=== PATIENT | female | born 1980 | race African-American/Black ===

== ENCOUNTER 2017-04-10 15:31 | Inpatient (IN) | payer MEDICAID ==
[2017-04-10] MEDS ORDERED: IPRATROPIUM/ALBUTEROL 0.5-2.5 MG/3 ML AMPUL NEB ONE ×3 (16:34→19:42)
[2017-04-10] MEDS ORDERED: PREDNISONE 20 MG TABLET PO ONE ×2 (16:42→23:45)
[2017-04-10] MEDS ORDERED: ALBUTEROL SULFATE 0.083% NEB 2.5 MG/3 ML AMPUL NEB ONE ×3 (16:42→17:42)
--- NOTE | 2017-04-10 17:18 | RADIOLOGY REPORT (SQ) ---
EXAM DESCRIPTION: CHEST PA/LAT COMPLETED DATE/TIME: 04/10/2017 5:07 pm REASON FOR STUDY: cough COMPARISON: 01/15/2016 EXAM PARAMETERS: NUMBER OF VIEWS: two views TECHNIQUE: Digital Frontal and Lateral radiographic views of the chest acquired. RADIATION DOSE: NA LIMITATIONS: none FINDINGS: LUNGS AND PLEURA: No opacities, masses or pneumothorax. No pleural effusion. MEDIASTINUM AND HILAR STRUCTURES: No masses or contour abnormalities. HEART AND VASCULAR STRUCTURES: Heart normal size. No evidence for failure. BONES: No acute findings. HARDWARE: None in the chest. OTHER: No other significant finding. IMPRESSION: NO SIGNIFICANT RADIOGRAPHIC FINDING IN THE CHEST. TECHNICAL DOCUMENTATION: JOB ID: [id number] [employer]- All Rights Reserved
--- NOTE | 2017-04-10 18:45 | ER Document Report ---
ED Medical Screen (RME) - General Chief Complaint: Shortness Of Breath Stated Complaint: DIFFICULTY BREATHING Time Seen by Provider: 04/10/17 16:25 Mode of Arrival: Ambulatory Information source: Patient TRAVEL OUTSIDE OF THE [place] IN LAST 30 DAYS: No - HPI Patient complains to provider of: cough, DB Onset: Other - 2 days Notes: 04/10/17 18:44 Patient is a 36-year-old female who presents to the emergency room complaining of 2 day history of cough with shortness of breath and difficulty breathing, she denies a fever, no history of similar symptoms, she is not a smoker, no history of asthma or COPD - Related Data Allergies/Adverse Reactions: No Known Allergies Allergy (Verified 04/10/17 15:55) Past Medical History - Social History Frequency of alcohol use: None Drug Abuse: None Endocrine Medical History: Reports: Hx Hypothyroidism. Denies: Hx Diabetes Mellitus Type 1, Hx Diabetes Mellitus Type 2 Renal/ Medical History: Denies: Hx Peritoneal Dialysis GI Medical History: Reports: Hx Gastritis Musculoskeltal Medical History: Reports Hx Arthritis, Reports Hx Musculoskeletal Deformity, Reports Hx Musculoskeletal Trauma Psychiatric Medical History: Reports: Hx Anxiety, Hx Bipolar Disorder, Hx Depression, Hx Schizophrenia Past Surgical History: Reports: Hx Hysterectomy - Immunizations Immunizations up to date: No Hx Diphtheria, Pertussis, Tetanus Vaccination: Yes Physical Exam - Vital signs Vitals: Temp Pulse Resp BP Pulse Ox 98.6 F 101 H 20 136/92 H 93 04/10/17 15:56 04/10/17 15:56 04/10/17 15:56 04/10/17 15:56 04/10/17 15:56 Course - Vital Signs Vital signs: Temp Pulse Resp BP Pulse Ox 98.6 F 101 H 20 136/92 H 93 04/10/17 15:56 04/10/17 15:56 04/10/17 15:56 04/10/17 15:56 04/10/17 15:56
[2017-04-10] MEDS ORDERED: TERBUTALINE SULFATE INJ/PF 1 MG/1 ML SDV SUBCUT ONE (19:42)
--- NOTE | 2017-04-10 19:43 | ER Document Report ---
ED Respiratory Problem - General Mode of Arrival: Ambulatory Information source: Patient TRAVEL OUTSIDE OF THE [place] IN LAST 30 DAYS: No - HPI Patient complains to provider of: Chest pain - "tightness", Hurts to breath, Short of breath Onset: Yesterday Associated symptoms: Other - see notes above <JAIME SOTO - Last Filed: 04/10/17 22:13> <ESPERANZA ARREGUIN - Last Filed: 04/10/17 23:42> - General Chief Complaint: Shortness Of Breath Stated Complaint: DIFFICULTY BREATHING Time Seen by Provider: 04/10/17 16:25 Notes: 36-year-old female presents to the ED complaining of shortness of breath that started yesterday and worsened today. Patient reports that her symptoms started with chest pressure and tightness followed by shortness of breath. Patient has used her daughter's inhaler, but to no relief. Patient also complaining of pain with deep breathing, but denies fever. (JAIME SOTO) - Related Data Allergies/Adverse Reactions: No Known Allergies Allergy (Verified 04/10/17 15:55) Past Medical History - General Information source: Patient - Social History Smoking Status: Former Smoker Frequency of alcohol use: None Drug Abuse: None Family History: DM, Hyperlipidemia, Hypertension, Malignancy, Thyroid Disfunction Patient has suicidal ideation: No Patient has homicidal ideation: No Endocrine Medical History: Reports: Hx Hypothyroidism. Denies: Hx Diabetes Mellitus Type 1, Hx Diabetes Mellitus Type 2 Renal/ Medical History: Denies: Hx Peritoneal Dialysis GI Medical History: Reports: Hx Gastritis Musculoskeltal Medical History: Reports Hx Arthritis, Reports Hx Musculoskeletal Deformity, Reports Hx Musculoskeletal Trauma Psychiatric Medical History: Reports: Hx Anxiety, Hx Bipolar Disorder, Hx Depression, Hx Schizophrenia Past Surgical History: Reports: Hx Hysterectomy - Immunizations Immunizations up to date: No Hx Diphtheria, Pertussis, Tetanus Vaccination: Yes <JAIME SOTO - Last Filed: 04/10/17 22:13> Review of Systems - Review of Systems Constitutional: No symptoms reported. denies: Fever EENT: No symptoms reported Cardiovascular: See HPI, Chest pain - 'tightness' Respiratory: See HPI, Hurts to breathe, Short of breath Gastrointestinal: No symptoms reported Genitourinary: No symptoms reported Female Genitourinary: No symptoms reported Musculoskeletal: No symptoms reported Skin: No symptoms reported Hematologic/Lymphatic: No symptoms reported Neurological/Psychological: No symptoms reported -: Yes All other systems reviewed and negative <SOTOJAIME - Last Filed: 04/10/17 22:13> Physical Exam - General General appearance: Alert In distress: Mild - HEENT Head: Normocephalic, Atraumatic Eyes: Normal Extraocular movements intact: Yes Pupils: PERRL - Respiratory Respiratory status: Respiratory distress - mild Breath sounds: Wheezing - diffuse bilaterally - Cardiovascular Rhythm: Regular Heart sounds: Normal auscultation - Abdominal Inspection: Normal Distension: No distension Tenderness: Nontender - Back Back: Normal - Extremities General upper extremity: Normal inspection, Normal ROM General lower extremity: Normal inspection, Normal ROM - Neurological Neuro grossly intact: Yes Cognition: Normal Orientation: AAOx4 [place] Coma Scale Eye Opening: Spontaneous [place] Coma Scale Verbal: Oriented [place] Coma Scale Motor: Obeys Commands Sig[place] Coma Scale Total: 15 Speech: Normal - Psychological Associated symptoms: Normal affect, Normal mood - Skin Skin Temperature: Warm Skin Moisture: Dry Skin Color: Normal <SOTOJAIME - Last Filed: 04/10/17 22:13> Course - Laboratory Result Diagrams: 04/10/17 20:04 04/10/17 20:04 <SOTOJAIME - Last Filed: 04/10/17 22:13> - Laboratory Result Diagrams: 04/10/17 20:04 04/10/17 20:04 <ESPERANZA ARREGUIN - Last Filed: 04/10/17 23:42> - Re-evaluation Re-evalutation: 04/10/17 20:27 Patient is a 36-year-old female with a history of smoking who comes in with respiratory distress. Continues to wheeze after nebulizer treatment Solu- Medrol and magnesium. No history of asthma or COPD. 04/10/17 21:08 Patient improved but still working to breathe. CTA of pain. No PE or pneumonia. Patient is improved on BiPAP but still wheezing. 04/10/17 23:41 Given Toradol for chest wall pain which is reproducible. Admitted to the hospitalist service for respiratory distress and bronchospasm. (ESPERANZA ARREGUIN) - Vital Signs Vital signs: Temp Pulse Resp BP Pulse Ox 98.6 F 101 H 20 136/92 H 93 04/10/17 15:56 04/10/17 15:56 04/10/17 15:56 04/10/17 15:56 04/10/17 15:56 - Laboratory Laboratory results interpreted by me: 04/10/17 04/10/17 04/10/17 20:04 20:04 22:15 WBC 22.2 H RBC 5.65 H MCV 72 L MCH 22.5 L MCHC 31.2 L RDW 16.9 H Seg Neuts % (Manual) 85 H Lymphocytes % (Manual) 9 L Abs Neuts (Manual) 18.9 H ABG pCO2 34.9 L ABG pO2 118.6 H ABG O2 Saturation 98.3 H Total Protein 8.3 H Urine Glucose (UA) Urine Blood 04/10/17 22:20 WBC RBC MCV MCH MCHC RDW Seg Neuts % (Manual) Lymphocytes % (Manual) Abs Neuts (Manual) ABG pCO2 ABG pO2 ABG O2 Saturation Total Protein Urine Glucose (UA) 50 H Urine Blood SMALL H Critical Care Note - Critical Care Note Total time excluding time spent on procedures (mins): 45 - Evaluation and management of respiratory distress, monitoring of airway breathing, multiple re- evaluations, coordination of admission, counseling of patient and family <ESPERANZA ARREGUIN - Last Filed: 04/10/17 23:42> Discharge <JAIME SOTO - Last Filed: 04/10/17 22:13> - Discharge Admitting Provider: [facility] Unit Admitted: [facility] <ESPERANZA ARREGUIN - Last Filed: 04/10/17 23:42> - Discharge Clinical Impression: Asthma exacerbation, Respiratory distress Condition: Stable Disposition: ADMITTED INPATIENT Scribe Attestation: 04/10/17 23:42 I personally performed the services described in the documentation, reviewed and edited the documentation which was dictated to the scribe in my presence, and it accurately records my words and actions. (ESPERANZA ARREGUIN) Scribe Documentation - Scribe Written by Aren:: Aren Caldwell, 04/10/2017 2220 acting as scribe for :: Syeda <JAIME SOTO - Last Filed: 04/10/17 22:13>
[2017-04-10] MEDS ORDERED: MAGNESIUM SULFATE/D5W 100 ML IV SCH (19:45)
[2017-04-10 20:23] LABS: HEMATOCRIT 40.7 % (36.0-47.0); HEMOGLOBIN 12.7 g/dL (12.0-15.5); HGB HCT DIFFERENCE -2.6; MEAN CORPUSCULAR HEMOGLOBIN 22.5 pg (27.0-33.4); MEAN CORPUSCULAR HGB CONC 31.2 g/dL (32.0-36.0); MEAN CORPUSCULAR VOLUME 72 fl (80-97); RED BLOOD COUNT 5.65 10^6/uL (3.72-5.28); RED CELL DISTRIBUTION WIDTH 16.9 % (11.5-14.0); WHITE BLOOD COUNT 22.2 10^3/uL (4.0-10.5)
[2017-04-10 20:39] LABS: ALANINE AMINOTRANSFERASE 37 U/L (9-52); ALBUMIN 4.6 g/dL (3.5-5.0); ALKALINE PHOSPHATASE 91 U/L (38-126); ANION GAP 15 (5-19); ASPARTATE AMINO TRANSFERASE 33 U/L (14-36); BLOOD UREA NITROGEN 12 mg/dL (7-20); CALCIUM 9.8 mg/dL (8.4-10.2); CARBON DIOXIDE 23 mmol/L (22-30); CHLORIDE 102 mmol/L (98-107); CREATININE RESULT 0.79 mg/dL (0.52-1.25); GLUCOSE 107 mg/dL (75-110); POTASSIUM 4.5 mmol/L (3.6-5.0); SODIUM 140.2 mmol/L (137-145)
[2017-04-10 20:40] LABS: BILIRUBIN,DIRECT 0.4 mg/dL (0.0-0.4); BILIRUBIN,TOTAL 0.6 mg/dL (0.2-1.3); TOTAL PROTEIN 8.3 g/dL (6.3-8.2)
[2017-04-10 20:41] LABS: BASOPHILS % (MANUAL) 1 % (0-2); EOSINOPHILS % (MANUAL) 0 % (0-6); LYMPHOCYTES % (MANUAL) 9 % (13-45); TOTAL CELLS COUNTED 100
[2017-04-10 20:43] LABS: HYPOCHROMASIA 1+; MICROCYTOSIS 2+; POIKILOCYTOSIS 2+
[2017-04-10 20:44] LABS: ANISOCYTOSIS 1+; POLYCHROMASIA SLIGHT
--- NOTE | 2017-04-10 21:36 | RADIOLOGY REPORT (SQ) ---
EXAM DESCRIPTION: CTA CHEST COMPLETED DATE/TIME: 04/10/2017 9:25 pm REASON FOR STUDY: SOB, tachycardia COMPARISON: None. TECHNIQUE: CT scan of the chest performed using helical scanning technique with dynamic intravenous contrast injection. Images reviewed with lung, soft tissue and bone windows. Reconstructed coronal and sagittal MPR images reviewed. Additional 3 dimensional post-processing performed to develop Maximal Intensity Projection images (CT P). All images stored on PACS. All CT scanners at this facility use dose modulation, iterative reconstruction, and/or weight based d osing when appropriate to reduce radiation dose to as low as reasonably achievable (ALARA). [facility]: Dose Right [facility]: CareDose [facility]: Dose Right [facility]: Teradose 4D [facility]: Biothera CONTRAST TYPE AND DOSE: contrast/concentration: Isovue 370.00 mg/ml; Total Contrast Delivered: 82.0 ml; Total Saline Delivered: 100.1 ml RENAL FUNCTION: BUN 12 creatinine 0.79. RADIATION DOSE: Up-to-date CT equipment and radiation dose reduction techniques were employed. CTDIv ol: 44.9 - 46.9 mGy. DLP: 1540 mGy-cm. . LIMITATIONS: None. FINDINGS: LUNGS AND PLEURA: No masses, infiltrates, pneumothorax. No pleural effusions, calcificati ons. AORTA AND GREAT VESSELS: No aneurysm or dissection. HEART: No pericardial effusion. PULMONARY ARTERIES: No emboli visualized in the main pulmonary arteries or the segmental branches. HILAR AND MEDIASTINAL STRUCTURES: No identified masses or abnormal nodes. HARDWARE: None in the chest. UPPER ABDOMEN: No significant findings. Limited exam. THYROID AND OTHER SOFT TISSUES: No masses. No adenopathy. BONES: No acute or significant finding. 3D MIPS: Confirm above findings. OTHER: No other significant finding. IMPRESSION: NORMAL CTA OF THE CHEST. NO PULMONARY EMBOLI. TECHNICAL DOCUMENTATION: JOB ID: [id number] Quality ID # [id number]: Final reports with documentation of one or more dose reduction techniques (e.g., Au tomated exposure control, adjustment of the mA and/or kV according to patient size, use of iterative reconstruction technique) 2010 [employer]- All Rights Reserved
[2017-04-10 22:17] LABS: PROTHROMBIN TIME 13.4 SEC (11.4-15.4)
[2017-04-10 22:31] LABS: ARTERIAL BLOOD BASE EXCESS -4.3 mmol/L; ARTERIAL BLOOD O2 SATURATION 98.3 % (94-98)
--- NOTE | 2017-04-10 22:40 | EKG REPORT ---
SEVERITY:- BORDERLINE ECG - SINUS TACHYCARDIA BORDERLINE T ABNORMALITIES, INFERIOR LEADS : Confirmed by: Liyah Watts 10-Apr-2017 22:39:18
[2017-04-10 22:41] LABS: APPEARANCE,URINE CLEAR; BILIRUBIN,URINE NEGATIVE (NEGATIVE); GLUCOSE, URINE 50 mg/dL (NEGATIVE); KETONES,URINE NEGATIVE (NEGATIVE); LEUKOCYTE ESTERASE,URINE NEGATIVE (NEGATIVE); NITRITE,URINE NEGATIVE (NEGATIVE); PROTEIN,URINE NEGATIVE (NEGATIVE); UROBILINOGEN,URINE NEGATIVE mg/dL (<2.0)
[2017-04-10 22:42] LABS: URINE SPECIFIC GRAVITY > 1.060
[2017-04-10 22:59] LABS: URINE BARBITURATES SCREEN NEGATIVE; URINE METHADONE SCREEN NEGATIVE; URINE OPIATES LOW NEGATIVE; URINE PHENCYCLIDINE SCREEN NEGATIVE
[2017-04-10] MEDS ORDERED: DOXYCYCLINE HYCLATE 100 MG TABLET PO ONE ×2 (23:00→23:45)
[2017-04-10] MEDS ORDERED: KETOROLAC TROMETHAMINE INJ/PF 30 MG/1 ML SDV IV ONE (23:33)
[2017-04-10] MEDS ORDERED: LACTULOSE SYRUP 20 GM/30 ML UDCUP PO ONE (23:45)
[2017-04-10] MEDS ORDERED: ACETAMINOPHEN 325 MG TABLET PO PRN (23:50)
[2017-04-10] MEDS ORDERED: MAG HYDROX/AL HYDROX/SIMETH SUSP 30 ML UDCUP PO PRN (23:50)
--- NOTE | 2017-04-11 01:06 | PDOC H&P ---
History of Present Illness Admission Date/PCP: 04/10/17 23:33 Patient complains of: Shortness of breath History of Present Illness: MODE MAURO is a 36 year old female with a past medical history of morbid obesity and bipolar who was in her usual state of health until approximately 2 days prior to presentation having shortness of breath, nonproductive cough and wheeze prompting to seek evaluation emergency room where she receives Solu- Medrol albuterol and Atrovent, workup is unremarkable with exception to leukocytosis. She remains markedly short of breath requiring BiPAP, denies chest pain nausea vomiting or diaphoresis. She is very to the hospitalist for admission Past Medical History Cardiac Medical History: Denies: None, Atrial Fibrillation, Congestive Heart Failure, Coronary Artery Disease, DVT, Myocardial Infarction, Hyperlipidema, Hypertension, Peripheral Vascular Disease, Pulmonary Embolism, Heart Murmur, Other Pulmonary Medical History: Denies: None, Asthma, Bronchitis, Chronic Obstructive Pulmonary Disease (COPD ), Intubation, Pneumonia, Respiratory Failure, Sleep Apnea, Tuberculosis, Other EENT Medical History: Denies: None, Cataracts, Eyes, Ears, Nose, Throat, Other Neurological Medical History: Denies: None, Hemorrhagic CVA, Ischemic CVA, Migraine, Multiple Sclerosis, Seizures, Other Endocrine Medical History: Reports: Hypothyroidism Denies: Diabetes Mellitus Type 1, Diabetes Mellitus Type 2 Renal/ Medical History: Denies: None, Chronic Kidney Disease, End Stage Renal Disease, Nephrolithiasis, Other Malignancy Medical History: Denies: None, Bone Cancer, Brain Cancer, Breast Cancer, Cervical Cancer, Colorectal Cancer, Leukemia, Liver Cancer, Lung Cancer, Lymphoma, Ovarian Cancer , Pancreatic Cancer, Renal (Kidney) Cancer, Skin Cancer, Other GI Medical History: Reports: Gastroesophageal Reflux Disease Musculoskeltal Medical History: Reports: Arthritis Psychiatric Medical History: Reports: Bipolar Disorder, Depression Hematology: Denies: Anemia Past Surgical History Past Surgical History: Reports: Hysterectomy Social History Information Source: Patient Smoking Status: Former Smoker Frequency of Alcohol Use: Occasional - Advance Directive Resuscitation Status: Full Code Family History Family History: DM, Hyperlipidemia, Hypertension, Malignancy, Thyroid Disfunction Parental Family History Reviewed: Yes Children Family History Reviewed: Yes Sibling(s) Family History Reviewed.: Yes Medication/Allergy Home Medications: Butalb/Acetaminophen/Caffeine [Fioricet (50-325-40 mg) Tablet] 1 tab PO Q4HP PRN #30 tab 06/16/14 Diazepam [Valium 5 mg Tablet] 5 mg PO TID PRN #15 tablet 06/16/14 Ondansetron [Zofran Odt 4 mg Tablet] 1 - 2 tab PO Q4H PRN #20 tab.rapdis Oxycodone HCl/Acetaminophen [Percocet 5-325 mg Tablet] 1 tab PO Q6HP PRN #15 tablet 04/06/15 Oxycodone HCl/Acetaminophen [Percocet 5-325 mg Tablet] 1 - 2 tab PO Q4H PRN #15 tablet 07/21/15 Promethazine HCl [Phenergan 25 mg Tablet] 1 - 2 tab PO Q6H PRN #15 tablet Butalbit/Acetamin/Caff/Codeine [Fioricet-Cod [id number] Cap] 1 - 2 cap PO Q6 PRN #25 cap 07/24/15 Metoclopramide HCl [Reglan 10 mg Tablet] 1 - 2 tab PO ASDIR PRN #25 tablet 08/02 Oxycodone HCl/Acetaminophen [Percocet 5-325 mg Tablet] 1 - 2 tab PO ASDIR PRN # 25 tablet 08/02/15 Allergies/Adverse Reactions: No Known Allergies Allergy (Verified 04/10/17 15:55) Review of Systems Constitutional: ABSENT: chills, fever(s), headache(s), weight gain, weight loss Eyes: ABSENT: visual disturbances Ears: ABSENT: hearing changes Cardiovascular: ABSENT: chest pain, dyspnea on exertion, edema, orthropnea, palpitations Respiratory: ABSENT: cough, hemoptysis Gastrointestinal: ABSENT: abdominal pain, constipation, diarrhea, hematemesis, hematochezia, nausea, vomiting Genitourinary: ABSENT: dysuria, hematuria Musculoskeletal: ABSENT: joint swelling Integumentary: ABSENT: rash, wounds Neurological: ABSENT: abnormal gait, abnormal speech, confusion, dizziness, focal weakness, syncope Psychiatric: ABSENT: anxiety, depression, homidical ideation, suicidal ideation Endocrine: ABSENT: cold intolerance, heat intolerance, polydipsia, polyuria Hematologic/Lymphatic: ABSENT: easy bleeding, easy bruising Physical Exam Vital Signs: Temp Pulse Resp BP Pulse Ox 98.6 F 101 H 17 113/78 100 04/10/17 15:56 04/10/17 15:56 04/11/17 00:00 04/10/17 21:01 04/11/17 00:00 General appearance: PRESENT: cooperative, disheveled, mild distress, morbidly obese Head exam: PRESENT: atraumatic, normocephalic Eye exam: PRESENT: conjunctiva pink, EOMI, PERRLA. ABSENT: scleral icterus Ear exam: PRESENT: normal external ear exam Mouth exam: PRESENT: moist, tongue midline Neck exam: ABSENT: carotid bruit, JVD, lymphadenopathy, thyromegaly Respiratory exam: PRESENT: prolonged expiratory phas, symmetrical, tachypnea, wheezes. ABSENT: accessory muscle use, chest wall tenderness, clear to auscultation lionel, crackles, decreased breath sounds Cardiovascular exam: PRESENT: RRR. ABSENT: diastolic murmur, rubs, systolic murmur Pulses: PRESENT: normal dorsalis pedis pul Vascular exam: PRESENT: normal capillary refill GI/Abdominal exam: PRESENT: normal bowel sounds, soft. ABSENT: distended, guarding, mass, organolmegaly, rebound, tenderness Rectal exam: PRESENT: deferred Extremities exam: PRESENT: full ROM. ABSENT: calf tenderness, clubbing, pedal edema Neurological exam: PRESENT: alert, awake, oriented to person, oriented to place , oriented to time, oriented to situation, CN II-XII grossly intact. ABSENT: motor sensory deficit Psychiatric exam: PRESENT: appropriate affect, normal mood. ABSENT: homicidal ideation, suicidal ideation Skin exam: PRESENT: dry, intact, warm. ABSENT: cyanosis, rash Results Impressions: Chest X-Ray 04/10/17 16:42 IMPRESSION: NO SIGNIFICANT RADIOGRAPHIC FINDING IN THE CHEST. Chest/Abdomen CTA 04/10/17 19:44 IMPRESSION: NORMAL CTA OF THE CHEST. NO PULMONARY EMBOLI. Assessment & Plan - Diagnosis (1) Respiratory distress Is this a current diagnosis for this admission?: YesPlan: Likely secondary to uncontrolled acid reflux and pneumonitis. She received supportive care with prednisone, albuterol and Atrovent. (2) GERD (gastroesophageal reflux disease) Is this a current diagnosis for this admission?: YesPlan: Proton pump inhibitor and education (3) Morbid obesity Is this a current diagnosis for this admission?: YesPlan: Evaluate TSH - Time Time Spent: 50 to 70 Minutes - Inpatient Certification Medical Necessity: Need Close Monitoring Due to Risk of Patient Decompensation
[2017-04-11] MEDS: IPRATROPIUM/ALBUTEROL 0.5-2.5 MG/3 ML AMPUL NEB SCH ×4 (01:48→19:47)
[2017-04-11 05:30] LABS: ABSOLUTE LYMPHOCYTES (AUTO) 1.1 10^3/uL (0.5-4.7); ABSOLUTE MONOCYTES (AUTO) 0.2 10^3/uL (0.1-1.4); ABSOLUTE NEUT (AUTO) 18.4 10^3/uL (1.7-8.2); BASOPHILS % (AUTO) 0.1 % (0-2); EOSINOPHILS % (AUTO) 0.1 % (0-6); HEMATOCRIT 35.9 % (36.0-47.0); HEMOGLOBIN 11.7 g/dL (12.0-15.5); HGB HCT DIFFERENCE -0.8; LYMPHOCYTES % (AUTO) 5.5 % (13-45); MEAN CORPUSCULAR HEMOGLOBIN 23.2 pg (27.0-33.4); MEAN CORPUSCULAR HGB CONC 32.5 g/dL (32.0-36.0); MEAN CORPUSCULAR VOLUME 71 fl (80-97); MONOCYTES % (AUTO) 1.1 % (3-13); RED BLOOD COUNT 5.04 10^6/uL (3.72-5.28); RED CELL DISTRIBUTION WIDTH 16.8 % (11.5-14.0); SEGMENTED NEUTROPHILS % (AUTO) 93.2 % (42-78); WHITE BLOOD COUNT 19.8 10^3/uL (4.0-10.5)
[2017-04-11] MEDS: HEPARIN SOD (PORCINE) 5,000 UNIT/ML 1 ML SYRINGE SUBCUT SCH ×3 (05:31→21:57)
[2017-04-11 05:33] LABS: ANION GAP 12 (5-19); BLOOD UREA NITROGEN 11 mg/dL (7-20); CALCIUM 9.6 mg/dL (8.4-10.2); CARBON DIOXIDE 23 mmol/L (22-30); CHLORIDE 104 mmol/L (98-107); CREATININE RESULT 0.83 mg/dL (0.52-1.25); GLUCOSE 196 mg/dL (75-110); POTASSIUM 4.9 mmol/L (3.6-5.0); SODIUM 138.5 mmol/L (137-145)
[2017-04-11] MEDS: PREDNISONE 20 MG TABLET PO SCH ×2 (07:47→17:03)
[2017-04-11] MEDS ORDERED: DOCUSATE SODIUM 100 MG/10 ML UDC PO SCH (10:00)
[2017-04-11] MEDS: DOXYCYCLINE HYCLATE 100 MG TABLET PO SCH ×2 (10:24→21:56)
[2017-04-11] MEDS: DOCUSATE SODIUM 100 MG CAPSULE PO SCH ×2 (10:24→17:03)
[2017-04-11] MEDS: KETOROLAC TROMETHAMINE INJ/PF 30 MG/1 ML SDV IV PRN ×2 (11:07→21:56)
--- NOTE | 2017-04-11 13:13 | Physician Advisory Note ---
Physician Advisor ProgressNote .: [facility] I have reviewed the medical record for this patient. Physician Advisor Statement: Please consider documentin. "Suspect Acute Respiratory Failure, given labored breathing w/accessory muscle use initiallly" - & document hypoxemia: - Pt w/ no underlying pulmonary disorder, & only 36yo, yet initial O2 sat only 93% on RA. - Pt on 40% FiO2 at time of ABG at 22:15. 2. "SIRS, present on adm, due to acute respiratory failure" (or ...) 3. "Possible acute bronchitis" (or whatever dx is being covered with doxy) Status: 36yo w/gastritis, obesity, but no lung dz presented with sudden onset resp distress/wheezing that continued despite using her daughter's inhaler. Sx were so severe that she was still working to breathe even after neb tx/Solumedrol/IV MAg in ED, & still wheezing after Bipap was begun. Initial VS included HR 101-130s sustained, w/RR22-35, sat initially 93% on RA, WBC 22.2. ED gave a total of 5 nebs, 60mg prednisone, IV Mag, & even Subcut terbutaline. Even at time of H&P, pt "remains markedly SOB requiring Bipap". This pt was clearly failing typical outpt treatments & had severe sx, unable to be safely managed as an outpt. Attending ordered Duonebs q6h, prednisone 30mg bid, O2, po doxycycline. This AM, she is still requiring Bipap, with HR up to 105, RR up to 34, & sat at 11:18 only 94% despite 1L O2. This pt is appropriate for Inpt status due to severity of illness, intensity of service. She is not yet hemodynamically stable after 1 night of hospital care, still needing O2 & BIpap. CK
--- NOTE | 2017-04-11 13:52 | PDOC PROGRESS REPORT ---
Subjective Progress Note for:: 04/11/17 Subjective:: reason for visit: f/u acute bronchitis hospital course: per other's notes - "MODE MAURO is a 36 year old female with a past medical history of morbid obesity and bipolar who was in her usual state of health until approximately 2 days prior to presentation having shortness of breath, nonproductive cough and wheeze prompting to seek evaluation emergency room where she receives Solu-Medrol albuterol and Atrovent , workup is unremarkable with exception to leukocytosis. She remains markedly short of breath requiring BiPAP, denies chest pain nausea vomiting or diaphoresis. She is very to the hospitalist for admission." overall feels better but still wheezing and would like to come off BiPAP. ROS: as above, all systems reviewed, remaining systems negative. Physical Exam Vital Signs: Temp Pulse Resp BP Pulse Ox 97.6 F 78 20 112/57 L 97 04/11/17 11:18 04/11/17 11:18 04/11/17 11:18 04/11/17 11:18 04/11/17 11:59 Intake & Output 04/10/17 04/11/17 04/12/17 06:59 06:59 06:59 Intake Total 100 Output Total 0 Balance 100 Weight 113.4 kg General appearance: PRESENT: obese, well-developed, well-nourished Head exam: PRESENT: atraumatic, normocephalic Eye exam: PRESENT: EOMI. ABSENT: scleral icterus Mouth exam: PRESENT: moist, neck supple Neck exam: ABSENT: carotid bruit, JVD Respiratory exam: PRESENT: rhonchi, wheezes. ABSENT: accessory muscle use Cardiovascular exam: PRESENT: RRR. ABSENT: systolic murmur Pulses: PRESENT: normal radial pulses, normal dorsalis pedis pul GI/Abdominal exam: PRESENT: normal bowel sounds, soft. ABSENT: tenderness Extremities exam: PRESENT: pedal edema - non pitting. ABSENT: calf tenderness Musculoskeletal exam: PRESENT: ambulatory, full ROM Neurological exam: PRESENT: alert, awake, oriented to person, oriented to place , oriented to time Psychiatric exam: PRESENT: appropriate affect, normal mood Skin exam: PRESENT: warm. ABSENT: rash Results Laboratory Results: 04/11/17 04:22 04/11/17 04:22 04/11/17 04/11/17 04:22 04:22 WBC 19.8 H RBC 5.04 Hgb 11.7 L Hct 35.9 L MCV 71 L MCH 23.2 L MCHC 32.5 RDW 16.8 H Plt Count 211 Seg Neutrophils % 93.2 H Lymphocytes % 5.5 L Monocytes % 1.1 L Eosinophils % 0.1 Basophils % 0.1 Absolute Neutrophils 18.4 H Absolute Lymphocytes 1.1 Absolute Monocytes 0.2 Absolute Eosinophils 0.0 Absolute Basophils 0.0 Sodium 138.5 Potassium 4.9 Chloride 104 Carbon Dioxide 23 Anion Gap 12 BUN 11 Creatinine 0.83 Est GFR ( Amer) > 60 Est GFR (Non-Af Amer) > 60 Glucose 196 H Calcium 9.6 Impressions: Chest X-Ray 04/10/17 16:42 IMPRESSION: NO SIGNIFICANT RADIOGRAPHIC FINDING IN THE CHEST. Chest/Abdomen CTA 04/10/17 19:44 IMPRESSION: NORMAL CTA OF THE CHEST. NO PULMONARY EMBOLI. Status: Imported from PACS Assessment & Plan - Diagnosis (1) Acute bacterial bronchitis Is this a current diagnosis for this admission?: YesPlan: Improved but not back to baseline; continue doxycycline and systemic steroids; wean off BIPAP as tolerated (2) Chronic narcotic dependence Is this a current diagnosis for this admission?: YesPlan: stable, continue home regimen (3) GERD (gastroesophageal reflux disease) Is this a current diagnosis for this admission?: YesPlan: unclear if this contributing to her bronchospasm; start PPI (4) Morbid obesity Is this a current diagnosis for this admission?: Yes - Time Time Spent with patient: 25-34 minutes
[2017-04-11] MEDS: OXYCODONE-ACETAMINOPHEN 5-325 MG TABLET PO PRN ×2 (14:14→20:16)
[2017-04-11] MEDS ORDERED: LANSOPRAZOLE 30 MG TAB.RAP.DR PO ONE (14:30)
[2017-04-12] MEDS: IPRATROPIUM/ALBUTEROL 0.5-2.5 MG/3 ML AMPUL NEB SCH ×2 (02:03→08:29)
[2017-04-12] MEDS: HEPARIN SOD (PORCINE) 5,000 UNIT/ML 1 ML SYRINGE SUBCUT SCH ×3 (05:29→21:44)
[2017-04-12] MEDS: PREDNISONE 20 MG TABLET PO SCH ×2 (08:01→16:49)
[2017-04-12] MEDS: LANSOPRAZOLE 30 MG TAB.RAP.DR PO SCH (08:01)
[2017-04-12 08:03] LABS: HEMATOCRIT 36.5 % (36.0-47.0); HEMOGLOBIN 11.3 g/dL (12.0-15.5); HGB HCT DIFFERENCE -2.6; MEAN CORPUSCULAR HEMOGLOBIN 22.6 pg (27.0-33.4); MEAN CORPUSCULAR HGB CONC 30.9 g/dL (32.0-36.0); MEAN CORPUSCULAR VOLUME 73 fl (80-97); RED BLOOD COUNT 4.99 10^6/uL (3.72-5.28); RED CELL DISTRIBUTION WIDTH 17.2 % (11.5-14.0); WHITE BLOOD COUNT 27.2 10^3/uL (4.0-10.5)
[2017-04-12 08:32] LABS: ANISOCYTOSIS 2+; BASOPHILS % (MANUAL) 0 % (0-2); EOSINOPHILS % (MANUAL) 0 % (0-6); LYMPHOCYTES % (MANUAL) 15 % (13-45); MICROCYTOSIS 1+; OVALOCYTES 1+; POIKILOCYTOSIS 1+; POLYCHROMASIA SLIGHT; TOTAL CELLS COUNTED 100
[2017-04-12] MEDS: LEVOFLOXACIN 750 MG TABLET PO SCH (10:17)
[2017-04-12] MEDS: DOCUSATE SODIUM 100 MG CAPSULE PO SCH ×2 (10:18→17:02)
[2017-04-12] MEDS: HYDROCODONE BIT/HOMATROPINE 5-1.5 MG TABLET PO PRN ×2 (10:21→16:50)
--- NOTE | 2017-04-12 11:38 | PDOC PROGRESS REPORT ---
Subjective Progress Note for:: 04/12/17 Subjective:: reason for visit: f/u acute bronchitis hospital course: per other's notes - "MODE MAURO is a 36 year old female with a past medical history of morbid obesity and bipolar who was in her usual state of health until approximately 2 days prior to presentation having shortness of breath, nonproductive cough and wheeze prompting to seek evaluation emergency room where she receives Solu-Medrol albuterol and Atrovent , workup is unremarkable with exception to leukocytosis. She remains markedly short of breath requiring BiPAP, denies chest pain nausea vomiting or diaphoresis. She is very to the hospitalist for admission." overall feels better but still wheezing and now coughing a dry hacking cough that worsens her wheezing and breathlessness; she is off BiPAP. she denies fevers, chills, chest pain, n/v/d. ROS: as above, all systems reviewed, remaining systems negative. Physical Exam Vital Signs: Temp Pulse Resp BP Pulse Ox 97.6 F 71 16 103/69 96 04/12/17 07:12 04/12/17 08:29 04/12/17 08:29 04/12/17 07:12 04/12/17 07:12 Intake & Output 04/11/17 04/12/17 04/13/17 06:59 06:59 06:59 Intake Total 100 1540 Output Total 0 Balance 100 1540 Weight 113.4 kg 113.2 kg General appearance: PRESENT: obese, well-developed, well-nourished Head exam: PRESENT: atraumatic, normocephalic Eye exam: PRESENT: EOMI. ABSENT: scleral icterus Mouth exam: PRESENT: moist, neck supple Neck exam: ABSENT: carotid bruit, JVD Respiratory exam: PRESENT: rhonchi, wheezes, increased accessory muscle use, dry hacking cough Cardiovascular exam: PRESENT: RRR. ABSENT: systolic murmur Pulses: PRESENT: normal radial pulses, normal dorsalis pedis pul GI/Abdominal exam: PRESENT: normal bowel sounds, soft. ABSENT: tenderness Extremities exam: PRESENT: pedal edema - non pitting. ABSENT: calf tenderness Musculoskeletal exam: PRESENT: ambulatory, full ROM Neurological exam: PRESENT: alert, awake, oriented to person, oriented to place , oriented to time Psychiatric exam: PRESENT: appropriate affect, normal mood Skin exam: PRESENT: warm. ABSENT: rash Results Laboratory Results: 04/12/17 07:44 04/11/17 04:22 04/12/17 07:44 WBC 27.2 H RBC 4.99 Hgb 11.3 L Hct 36.5 MCV 73 L MCH 22.6 L MCHC 30.9 L RDW 17.2 H Plt Count 229 Seg Neutrophils % Not Reportable Lymphocytes % Not Reportable Monocytes % Not Reportable Eosinophils % Not Reportable Basophils % Not Reportable Absolute Neutrophils Not Reportable Absolute Lymphocytes Not Reportable Absolute Monocytes Not Reportable Absolute Eosinophils Not Reportable Absolute Basophils Not Reportable Assessment & Plan - Diagnosis (1) Acute bacterial bronchitis Is this a current diagnosis for this admission?: YesPlan: failing to progress and not back to baseline; discontinue doxycycline, chg to levaquin and continue systemic steroids. add antitussive and decrease atrovent use as it may be drying out her secretions making it more difficult to clear (2) Chronic narcotic dependence Is this a current diagnosis for this admission?: Yes (3) GERD (gastroesophageal reflux disease) Is this a current diagnosis for this admission?: Yes (4) Morbid obesity Is this a current diagnosis for this admission?: Yes (5) Leukocytosis, unspecified Qualifiers: Leukocytosis type: leukemoid reaction Qualified Code(s): D72.823 - Leukemoid reaction Is this a current diagnosis for this admission?: YesPlan: worse, likely margination from steroids use - Time Time Spent with patient: 25-34 minutes
[2017-04-12] MEDS: ALBUTEROL SULFATE 0.083% NEB 2.5 MG/3 ML AMPUL NEB PRN ×2 (13:55→20:57)
[2017-04-12] MEDS: OXYCODONE-ACETAMINOPHEN 5-325 MG TABLET PO PRN (14:31)
[2017-04-12] MEDS: KETOROLAC TROMETHAMINE INJ/PF 30 MG/1 ML SDV IV PRN (14:31)
[2017-04-12] MEDS ORDERED: BISACODYL 10 MG SUPP.RECT PR ONE (18:39)
[2017-04-13] MEDS: OXYCODONE-ACETAMINOPHEN 5-325 MG TABLET PO PRN ×2 (00:17→19:48)
[2017-04-13] MEDS: HYDROCODONE BIT/HOMATROPINE 5-1.5 MG TABLET PO PRN ×3 (03:40→18:53)
[2017-04-13] MEDS: HEPARIN SOD (PORCINE) 5,000 UNIT/ML 1 ML SYRINGE SUBCUT SCH ×3 (05:35→21:18)
[2017-04-13] MEDS: ALBUTEROL SULFATE 0.083% NEB 2.5 MG/3 ML AMPUL NEB PRN ×3 (08:46→19:49)
[2017-04-13] MEDS: LANSOPRAZOLE 30 MG TAB.RAP.DR PO SCH (09:44)
[2017-04-13] MEDS: DOCUSATE SODIUM 100 MG CAPSULE PO SCH ×2 (09:45→17:27)
[2017-04-13] MEDS: LEVOFLOXACIN 750 MG TABLET PO SCH (09:45)
[2017-04-13] MEDS: PREDNISONE 20 MG TABLET PO SCH ×2 (09:45→17:27)
[2017-04-13] MEDS ORDERED: BUDESONIDE NEB 0.5 MG/2 ML AMPUL NEB ONE (11:00)
--- NOTE | 2017-04-13 11:24 | PDOC PROGRESS REPORT ---
Subjective Progress Note for:: 04/13/17 Subjective:: reason for visit: f/u acute bronchitis hospital course: per other's notes - "MODE MAURO is a 36 year old female with a past medical history of morbid obesity and bipolar who was in her usual state of health until approximately 2 days prior to presentation having shortness of breath, nonproductive cough and wheeze prompting to seek evaluation emergency room where she receives Solu-Medrol albuterol and Atrovent , workup is unremarkable with exception to leukocytosis. She remains markedly short of breath requiring BiPAP, denies chest pain nausea vomiting or diaphoresis. She is very to the hospitalist for admission." she denies childhood asthma, smoked 1/2 ppd for only a year and that was 10 years ago, no family hx of lung or liver disease or connective tissue disorders. she reports at least 2 prior episodes of bronchitis and one influenza pneumonia. she denies heartburn, GERD symptoms. she is obese but denies any knowledge of sleep apnea or heavy snoring, daytime sleepiness, chronic HAs. overall feels worse, still wheezing and continues coughing a dry hacking cough that worsens her wheezing and breathlessness; she is off BiPAP 2 days running. ROS: she denies fevers, chills, chest pain, n/v/d. as above, all systems reviewed, remaining systems negative. Physical Exam Vital Signs: Temp Pulse Resp BP Pulse Ox 98.0 F 72 18 110/66 96 04/13/17 08:06 04/13/17 08:46 04/13/17 08:46 04/13/17 08:06 04/13/17 08:46 Intake & Output 04/12/17 04/13/17 04/14/17 06:59 06:59 06:59 Intake Total 1540 2080 Balance 1540 2080 Weight 113.2 kg 113.2 kg General appearance: PRESENT: morbidly obese, well-developed, well-nourished Head exam: PRESENT: atraumatic, normocephalic Eye exam: PRESENT: EOMI. ABSENT: scleral icterus Mouth exam: PRESENT: moist, neck supple Neck exam: ABSENT: carotid bruit, JVD Respiratory exam: PRESENT: no rhonchi, but wheezes persist as does increased accessory muscle use and dry hacking cough Cardiovascular exam: PRESENT: RRR. ABSENT: systolic murmur Pulses: PRESENT: normal radial pulses, normal dorsalis pedis pul GI/Abdominal exam: PRESENT: normal bowel sounds, soft. ABSENT: tenderness Extremities exam: PRESENT: pedal edema - non pitting. ABSENT: calf tenderness Musculoskeletal exam: PRESENT: ambulatory, full ROM Neurological exam: PRESENT: alert, awake, oriented to person, oriented to place , oriented to time Psychiatric exam: PRESENT: appropriate affect, normal mood Skin exam: PRESENT: warm. ABSENT: rash Results Laboratory Results: 04/12/17 07:44 04/11/17 04:22 Assessment & Plan - Diagnosis (1) Acute bacterial bronchitis Is this a current diagnosis for this admission?: YesPlan: working diagnosis. failing to progress and not back to baseline; discontinued doxycycline, chgd to levaquin 04/12 and continue systemic steroids. added antitussive and decreased atrovent use as it may have been drying out her secretions making them more difficult to clear. still not really getting better. will add pulmicort and consult dr shah at his convenience to see what he thinks. (2) Chronic narcotic dependence Is this a current diagnosis for this admission?: Yes (3) GERD (gastroesophageal reflux disease) Is this a current diagnosis for this admission?: YesPlan: she reported this to Dr Hargrove and then denies it to me. unclear if this contributing to her bronchospasm; started PPI 04/12 with little effect so far (4) Leukocytosis, unspecified Qualifiers: Leukocytosis type: leukemoid reaction Qualified Code(s): D72.823 - Leukemoid reaction Is this a current diagnosis for this admission?: YesPlan: worse, likely margination from steroids use. ck again in morning (5) Morbid obesity Is this a current diagnosis for this admission?: Yes - Time Time Spent with patient: 25-34 minutes Medications reviewed and adjusted accordingly: Yes
[2017-04-13] MEDS: KETOROLAC TROMETHAMINE INJ/PF 30 MG/1 ML SDV IV PRN ×2 (13:52→21:18)
[2017-04-13] MEDS ORDERED: MAG HYDROX/AL HYDROX/SIMETH SUSP 30 ML UDCUP PO PRN (14:24)
[2017-04-13] MEDS: BUDESONIDE NEB 0.5 MG/2 ML AMPUL NEB SCH (19:49)
[2017-04-14] MEDS: HYDROCODONE BIT/HOMATROPINE 5-1.5 MG TABLET PO PRN ×3 (05:36→21:49)
[2017-04-14] MEDS: HEPARIN SOD (PORCINE) 5,000 UNIT/ML 1 ML SYRINGE SUBCUT SCH ×3 (05:36→21:48)
[2017-04-14 07:11] LABS: HEMATOCRIT 36.4 % (36.0-47.0); HEMOGLOBIN 11.4 g/dL (12.0-15.5); HGB HCT DIFFERENCE -2.2; MEAN CORPUSCULAR HEMOGLOBIN 22.8 pg (27.0-33.4); MEAN CORPUSCULAR HGB CONC 31.4 g/dL (32.0-36.0); MEAN CORPUSCULAR VOLUME 72 fl (80-97); RED BLOOD COUNT 5.02 10^6/uL (3.72-5.28); RED CELL DISTRIBUTION WIDTH 17.2 % (11.5-14.0); WHITE BLOOD COUNT 21.3 10^3/uL (4.0-10.5)
[2017-04-14 07:13] LABS: ALANINE AMINOTRANSFERASE 37 U/L (9-52); ALBUMIN 3.7 g/dL (3.5-5.0); ALKALINE PHOSPHATASE 81 U/L (38-126); ANION GAP 8 (5-19); ASPARTATE AMINO TRANSFERASE 25 U/L (14-36); BILIRUBIN,DIRECT 0.3 mg/dL (0.0-0.4); BILIRUBIN,TOTAL 0.4 mg/dL (0.2-1.3); BLOOD UREA NITROGEN 16 mg/dL (7-20); CARBON DIOXIDE 29 mmol/L (22-30); CHLORIDE 104 mmol/L (98-107); CREATININE RESULT 0.85 mg/dL (0.52-1.25); GLUCOSE 102 mg/dL (75-110); POTASSIUM 4.9 mmol/L (3.6-5.0); SODIUM 140.9 mmol/L (137-145); TOTAL PROTEIN 6.9 g/dL (6.3-8.2)
[2017-04-14] MEDS: PREDNISONE 20 MG TABLET PO SCH ×2 (07:33→17:58)
[2017-04-14] MEDS: LANSOPRAZOLE 30 MG TAB.RAP.DR PO SCH (07:34)
[2017-04-14 07:47] LABS: ANISOCYTOSIS 2+; BASOPHILS % (MANUAL) 0 % (0-2); EOSINOPHILS % (MANUAL) 0 % (0-6); HYPOCHROMASIA 1+; LYMPHOCYTES % (MANUAL) 13 % (13-45); MICROCYTOSIS 1+; POLYCHROMASIA SLIGHT; TOTAL CELLS COUNTED 100
[2017-04-14] MEDS: BUDESONIDE NEB 0.5 MG/2 ML AMPUL NEB SCH ×2 (07:59→20:43)
[2017-04-14] MEDS: ALBUTEROL SULFATE 0.083% NEB 2.5 MG/3 ML AMPUL NEB PRN ×4 (07:59→20:43)
[2017-04-14] MEDS: DOCUSATE SODIUM 100 MG CAPSULE PO SCH (09:46)
[2017-04-14] MEDS: LEVOFLOXACIN 750 MG TABLET PO SCH (09:46)
[2017-04-14] MEDS: KETOROLAC TROMETHAMINE INJ/PF 30 MG/1 ML SDV IV PRN ×2 (09:53→19:59)
[2017-04-14] MEDS ORDERED: MAGNESIUM CITRATE 296 ML BOTTLE PO ONE (12:00)
--- NOTE | 2017-04-14 14:43 | PDOC PROGRESS REPORT ---
Subjective Progress Note for:: 04/14/17 Subjective:: reason for visit: f/u acute bronchitis hospital course: per other's notes - "MODE MAURO is a 36 year old female with a past medical history of morbid obesity and bipolar who was in her usual state of health until approximately 2 days prior to presentation having shortness of breath, nonproductive cough and wheeze prompting to seek evaluation emergency room where she receives Solu-Medrol albuterol and Atrovent , workup is unremarkable with exception to leukocytosis. She remains markedly short of breath requiring BiPAP, denies chest pain nausea vomiting or diaphoresis. She is very to the hospitalist for admission." she denies childhood asthma, smoked 1/2 ppd for only a year and that was 10 years ago, no family hx of lung or liver disease or connective tissue disorders. she reports at least 2 prior episodes of bronchitis and one influenza pneumonia. she denies heartburn, GERD symptoms. she is obese but denies any knowledge of sleep apnea or heavy snoring, daytime sleepiness, chronic HAs. overall feels about the same, not sleeping at night due to worsening symptoms when she falls asleep, still wheezing and continues coughing a dry hacking cough that worsens her wheezing and breathlessness; she is off BiPAP 3 days running. ROS: she denies fevers, chills, chest pain, n/v/d. as above, all systems reviewed, remaining systems negative. Physical Exam Vital Signs: Temp Pulse Resp BP Pulse Ox 98.2 F 80 17 109/65 95 04/14/17 11:36 04/14/17 11:36 04/14/17 11:36 04/14/17 11:36 04/14/17 11:36 Intake & Output 04/13/17 04/14/17 04/15/17 06:59 06:59 06:59 Intake Total 2079 147 Balance 2079 147 Weight 113.2 kg 113.2 kg General appearance: PRESENT: morbidly obese, well-developed, well-nourished Head exam: PRESENT: atraumatic, normocephalic Eye exam: PRESENT: EOMI. ABSENT: scleral icterus Mouth exam: PRESENT: moist, neck supple Neck exam: ABSENT: carotid bruit, JVD Respiratory exam: PRESENT: no rhonchi, but exp wheezes persist; no accessory muscle use and dry hacking cough improved from 2d ago Cardiovascular exam: PRESENT: RRR. ABSENT: systolic murmur Pulses: PRESENT: normal radial pulses, normal dorsalis pedis pul GI/Abdominal exam: PRESENT: normal bowel sounds, soft. ABSENT: tenderness Extremities exam: PRESENT: pedal edema - non pitting. ABSENT: calf tenderness Musculoskeletal exam: PRESENT: ambulatory, full ROM Neurological exam: PRESENT: alert, awake, oriented to person, oriented to place , oriented to time Psychiatric exam: PRESENT: appropriate affect, normal mood Skin exam: PRESENT: warm. ABSENT: rash Results Laboratory Results: 04/14/17 06:13 04/14/17 06:13 04/14/17 04/14/17 06:13 06:13 WBC 21.3 H RBC 5.02 Hgb 11.4 L Hct 36.4 MCV 72 L MCH 22.8 L MCHC 31.4 L RDW 17.2 H Plt Count 221 Seg Neutrophils % Not Reportable Lymphocytes % Not Reportable Monocytes % Not Reportable Eosinophils % Not Reportable Basophils % Not Reportable Absolute Neutrophils Not Reportable Absolute Lymphocytes Not Reportable Absolute Monocytes Not Reportable Absolute Eosinophils Not Reportable Absolute Basophils Not Reportable Sodium 140.9 Potassium 4.9 Chloride 104 Carbon Dioxide 29 Anion Gap 8 BUN 16 Creatinine 0.85 Est GFR ( Amer) > 60 Est GFR (Non-Af Amer) > 60 Glucose 102 Calcium 9.0 Total Bilirubin 0.4 AST 25 ALT 37 Alkaline Phosphatase 81 Total Protein 6.9 Albumin 3.7 Assessment & Plan - Diagnosis (1) Acute bacterial bronchitis Is this a current diagnosis for this admission?: YesPlan: working diagnosis. failed to progress and still not back to baseline; dis continued doxycycline and chgd to levaquin 04/12; continue systemic steroids. added antitussive and decreased atrovent use as it may have been drying out her secretions making them more difficult to clear. has really plateaued, not much improvement in spite of added pulmicort. I discussed with dr shah who will see in consultation, interested to see what he thinks. (2) Chronic narcotic dependence Is this a current diagnosis for this admission?: Yes (3) GERD (gastroesophageal reflux disease) Is this a current diagnosis for this admission?: Yes (4) Leukocytosis, unspecified Qualifiers: Leukocytosis type: leukemoid reaction Qualified Code(s): D72.823 - Leukemoid reaction Is this a current diagnosis for this admission?: Yes (5) Morbid obesity Is this a current diagnosis for this admission?: Yes - Time Time Spent with patient: 25-34 minutes
[2017-04-14] MEDS: SENNOSIDES/DOCUSATE 8.6-50 MG 1 EACH TABLET PO SCH (17:58)
[2017-04-14] MEDS: CETIRIZINE 5 MG TABLET PO SCH (17:58)
[2017-04-14] MEDS ORDERED: ERYTHROMYCIN BASE 250 MG TABLET PO ONE (18:00)
[2017-04-14] MEDS: MONTELUKAST SODIUM 10 MG TABLET PO SCH (21:48)
[2017-04-14] MEDS: FLUTICASONE NASAL SPRAY 50 MCG/SPRY 120 SPRAY/16 GM NASL SCH (21:48)
[2017-04-15] MEDS: ALBUTEROL SULFATE 0.083% NEB 2.5 MG/3 ML AMPUL NEB PRN ×4 (02:16→15:56)
[2017-04-15] MEDS: KETOROLAC TROMETHAMINE INJ/PF 30 MG/1 ML SDV IV PRN ×3 (02:30→23:48)
[2017-04-15 05:06] LABS: HEMATOCRIT 37.4 % (36.0-47.0); HEMOGLOBIN 11.5 g/dL (12.0-15.5); HGB HCT DIFFERENCE -2.9; MEAN CORPUSCULAR HEMOGLOBIN 22.5 pg (27.0-33.4); MEAN CORPUSCULAR HGB CONC 30.8 g/dL (32.0-36.0); MEAN CORPUSCULAR VOLUME 73 fl (80-97); RED BLOOD COUNT 5.13 10^6/uL (3.72-5.28); RED CELL DISTRIBUTION WIDTH 17.2 % (11.5-14.0); WHITE BLOOD COUNT 23.2 10^3/uL (4.0-10.5)
[2017-04-15] MEDS: HEPARIN SOD (PORCINE) 5,000 UNIT/ML 1 ML SYRINGE SUBCUT SCH ×3 (05:15→21:49)
[2017-04-15 05:29] LABS: BAND NEUTROPHILS % (MANUAL) 1 % (3-5); BASOPHILS % (MANUAL) 0 % (0-2); EOSINOPHILS % (MANUAL) 0 % (0-6); LYMPHOCYTES % (MANUAL) 23 % (13-45); TOTAL CELLS COUNTED 100
[2017-04-15 05:31] LABS: ANISOCYTOSIS 1+; MICROCYTOSIS 1+; POIKILOCYTOSIS 1+; TARGET CELLS 1+; TEAR DROP CELLS SLIGHT
[2017-04-15] MEDS: BUDESONIDE NEB 0.5 MG/2 ML AMPUL NEB SCH ×2 (08:16→19:37)
[2017-04-15] MEDS: PREDNISONE 20 MG TABLET PO SCH ×2 (08:28→17:40)
[2017-04-15] MEDS: LANSOPRAZOLE 30 MG TAB.RAP.DR PO SCH (08:28)
[2017-04-15] MEDS: ERYTHROMYCIN BASE 250 MG TABLET PO SCH ×3 (08:28→15:47)
[2017-04-15] MEDS: HYDROCODONE BIT/HOMATROPINE 5-1.5 MG TABLET PO PRN ×3 (08:34→21:47)
[2017-04-15] MEDS: FLUTICASONE NASAL SPRAY 50 MCG/SPRY 120 SPRAY/16 GM NASL SCH ×2 (09:13→21:45)
[2017-04-15] MEDS: SENNOSIDES/DOCUSATE 8.6-50 MG 1 EACH TABLET PO SCH ×2 (09:13→17:39)
[2017-04-15] MEDS: NYSTATIN/DEXAMETH/DIPHEN SUSP 120 ML PO SCH ×4 (10:52→21:46)
--- NOTE | 2017-04-15 11:03 | PDOC PROGRESS REPORT ---
Subjective Progress Note for:: 04/15/17 Subjective:: reason for visit: f/u acute bronchitis hospital course: per other's notes - "MODE MAURO is a 36 year old female with a past medical history of morbid obesity and bipolar who was in her usual state of health until approximately 2 days prior to presentation having shortness of breath, nonproductive cough and wheeze prompting to seek evaluation emergency room where she receives Solu-Medrol albuterol and Atrovent , workup is unremarkable with exception to leukocytosis. She remains markedly short of breath requiring BiPAP, denies chest pain nausea vomiting or diaphoresis. She is very to the hospitalist for admission." she denies childhood asthma, smoked 1/2 ppd for only a year and that was 10 years ago, no family hx of lung or liver disease or connective tissue disorders. she reports at least 2 prior episodes of bronchitis and one influenza pneumonia. she denies heartburn, GERD symptoms. she is obese but denies any knowledge of sleep apnea or heavy snoring, daytime sleepiness, chronic HAs. overall feels about the same, not sleeping at night due to worsening symptoms when she falls asleep, still wheezing and continues coughing a dry hacking cough that worsens her wheezing and breathlessness; she is off BiPAP 4 days running. symptoms continue to be worse at night. ROS: she denies fevers, chills, chest pain, n/v/d. as above, all systems reviewed, remaining systems negative. Physical Exam Vital Signs: Temp Pulse Resp BP Pulse Ox 97.6 F 65 18 98/78 L 99 04/15/17 07:42 04/15/17 07:42 04/15/17 07:42 04/15/17 07:42 04/15/17 07:42 Intake & Output 04/14/17 04/15/17 04/16/17 06:59 06:59 06:59 Intake Total 1470 1583 Balance 1470 1583 Weight 113.2 kg 113.3 kg General appearance: PRESENT: morbidly obese, well-developed, well-nourished Head exam: PRESENT: atraumatic, normocephalic Eye exam: PRESENT: EOMI. ABSENT: scleral icterus Mouth exam: PRESENT: moist, neck supple Neck exam: ABSENT: carotid bruit, JVD Respiratory exam: PRESENT: no rhonchi, but exp wheezes persist; no accessory muscle use and dry hacking cough improved from 2d ago Cardiovascular exam: PRESENT: RRR. ABSENT: systolic murmur Pulses: PRESENT: normal radial pulses, normal dorsalis pedis pul GI/Abdominal exam: PRESENT: normal bowel sounds, soft. ABSENT: tenderness Extremities exam: PRESENT: pedal edema - non pitting. ABSENT: calf tenderness Musculoskeletal exam: PRESENT: ambulatory, full ROM Neurological exam: PRESENT: alert, awake, oriented to person, oriented to place , oriented to time Psychiatric exam: PRESENT: appropriate affect, normal mood Skin exam: PRESENT: warm. ABSENT: rash Results Laboratory Results: 04/15/17 04:01 04/14/17 06:13 04/15/17 04:01 WBC 23.2 H RBC 5.13 Hgb 11.5 L Hct 37.4 MCV 73 L MCH 22.5 L MCHC 30.8 L RDW 17.2 H Plt Count 212 Seg Neutrophils % Not Reportable Lymphocytes % Not Reportable Monocytes % Not Reportable Eosinophils % Not Reportable Basophils % Not Reportable Absolute Neutrophils Not Reportable Absolute Lymphocytes Not Reportable Absolute Monocytes Not Reportable Absolute Eosinophils Not Reportable Absolute Basophils Not Reportable Assessment & Plan - Diagnosis (1) Acute bacterial bronchitis Is this a current diagnosis for this admission?: YesPlan: working diagnosis but with worsening monocytosis now feel more strongly this is viral in nature. failed to progress and still not back to baseline; dis continued doxycycline and chgd to levaquin 04/12- but made no difference ; continue systemic steroids. added antitussive and decreased atrovent use as it may have been drying out her secretions making them more difficult to clear. dr shah has seen in consultation and added upper airway and allergy treatment. I agree with evaluation of her swallow/esophageal dysmotility to eval risk for chronic micro aspiration particularly at night. ST not available anytime soon so will get UGI series and go from there. screen for influenza, we saw early cases last year; too late for treatment at this point but would at least answer the question (2) Chronic narcotic dependence Is this a current diagnosis for this admission?: Yes (3) GERD (gastroesophageal reflux disease) Is this a current diagnosis for this admission?: YesPlan: she reported this to Dr Hargrove and then denies it to me. unclear if this contributing to her bronchospasm; started PPI 04/12 with little effect so far (4) Leukocytosis, unspecified Qualifiers: Leukocytosis type: leukemoid reaction Qualified Code(s): D72.823 - Leukemoid reaction Is this a current diagnosis for this admission?: Yes (5) Morbid obesity Is this a current diagnosis for this admission?: Yes - Time Time Spent with patient: 15-24 minutes Medications reviewed and adjusted accordingly: Yes
[2017-04-15] MEDS: CETIRIZINE 5 MG TABLET PO SCH (17:39)
--- NOTE | 2017-04-15 19:33 | PDOC CONSULTATION ---
Consultation Consult Date: 04/14/17 Attending physician:: PATRICE STRAUSS Consult reason:: dyspnea/hypoxia History of Present Illness Admission Date/PCP: 04/10/17 23:33 History of Present Illness: MODE MAURO is a 36 year old female with a past medical history of morbid obesity and bipolar who was in her usual state of health until approximately 2 days prior to presentation having shortness of breath, nonproductive cough and wheeze prompting to seek evaluation emergency room where she receives Solu- Medrol albuterol and Atrovent, workup is unremarkable with exception to leukocytosis. She remains markedly short of breath requiring BiPAP, denies chest pain nausea vomiting or diaphoresis. never smoked ;passive exsposure to smoke as a child and adult thus far poor response to therapy Past Medical History Cardiac Medical History: Denies: None, Atrial Fibrillation, Congestive Heart Failure, Coronary Artery Disease, DVT, Myocardial Infarction, Hyperlipidema, Hypertension, Peripheral Vascular Disease, Pulmonary Embolism, Heart Murmur, Other Pulmonary Medical History: Denies: None, Asthma, Bronchitis, Chronic Obstructive Pulmonary Disease (COPD ), Intubation, Pneumonia, Respiratory Failure, Sleep Apnea, Tuberculosis, Other EENT Medical History: Denies: None, Cataracts, Eyes, Ears, Nose, Throat, Other Neurological Medical History: Denies: None, Hemorrhagic CVA, Ischemic CVA, Migraine, Multiple Sclerosis, Seizures, Other Endocrine Medical History: Reports: Hypothyroidism Denies: Diabetes Mellitus Type 1, Diabetes Mellitus Type 2 Renal/ Medical History: Denies: None, Chronic Kidney Disease, End Stage Renal Disease, Nephrolithiasis, Other Malignancy Medical History: Denies: None, Bone Cancer, Brain Cancer, Breast Cancer, Cervical Cancer, Colorectal Cancer, Leukemia, Liver Cancer, Lung Cancer, Lymphoma, Ovarian Cancer , Pancreatic Cancer, Renal (Kidney) Cancer, Skin Cancer, Other GI Medical History: Reports: Gastroesophageal Reflux Disease Musculoskeltal Medical History: Reports: Arthritis Psychiatric Medical History: Reports: Bipolar Disorder, Depression Hematology: Denies: Anemia, Other Past Surgical History Past Surgical History: Reports: Hysterectomy Social History Information Source: Patient, [facility] Records Lives with: Family Smoking Status: Never Smoker Passive smoke exposure as: Both Frequency of Alcohol Use: None Hx Recreational Drug Use: No Drugs: None Hx Prescription Drug Abuse: No Do you have pets?: No Have you had any respiratory illnesses as a child?: No Have you been exposed to any sick contacts recently?: No Have you had any recent respiratory illnesses?: No Have you travelled outside of [place] in the past 12 months?: Yes - Advance Directive Resuscitation Status: Full Code Family History Family History: DM, Hyperlipidemia, Hypertension, Malignancy, Thyroid Disfunction Parental Family History Reviewed: No Children Family History Reviewed: No Sibling(s) Family History Reviewed.: No Medication/Allergy Home Medications: Oxycodone HCl/Acetaminophen [Percocet 10-325 mg Tablet] 1 tab PO Q6HP PRN Allergies/Adverse Reactions: No Known Allergies Allergy (Verified 04/10/17 15:55) Review of Systems All systems: reviewed and no additional remarkable complaints except as stated Physical Exam Vital Signs: Temp Pulse Resp BP Pulse Ox 98.0 F 62 18 124/77 96 04/14/17 16:00 04/14/17 16:00 04/14/17 16:00 04/14/17 16:00 04/14/17 16:00 Intake & Output 04/13/17 04/14/17 04/15/17 06:59 06:59 06:59 Intake Total 0 1470 13 Balance 208 1470 13 Weight 113.2 kg 113.2 kg General appearance: PRESENT: no acute distress, cooperative, disheveled, morbidly obese, well-developed, well-nourished Head exam: PRESENT: atraumatic, normocephalic Eye exam: PRESENT: conjunctiva pale, EOMI Mouth exam: PRESENT: moist, neck supple, tongue midline Neck exam: ABSENT: carotid bruit, JVD, lymphadenopathy, thyromegaly Respiratory exam: PRESENT: decreased breath sounds, prolonged expiratory phas, rhonchi, symmetrical, wheezes Cardiovascular exam: PRESENT: RRR, +S1, +S2 Pulses: PRESENT: normal radial pulses GI/Abdominal exam: PRESENT: normal bowel sounds, soft. ABSENT: distended, guarding, mass, organolmegaly, rebound, tenderness Rectal exam: PRESENT: deferred Musculoskeletal exam: PRESENT: normal inspection Neurological exam: PRESENT: alert, awake Psychiatric exam: PRESENT: normal mood Skin exam: PRESENT: dry, warm Results Laboratory Results: 04/14/17 06:13 04/14/17 06:13 04/14/17 04/14/17 06:13 06:13 WBC 21.3 H RBC 5.02 Hgb 11.4 L Hct 36.4 MCV 72 L MCH 22.8 L MCHC 31.4 L RDW 17.2 H Plt Count 221 Seg Neutrophils % Not Reportable Lymphocytes % Not Reportable Monocytes % Not Reportable Eosinophils % Not Reportable Basophils % Not Reportable Absolute Neutrophils Not Reportable Absolute Lymphocytes Not Reportable Absolute Monocytes Not Reportable Absolute Eosinophils Not Reportable Absolute Basophils Not Reportable Sodium 140.9 Potassium 4.9 Chloride 104 Carbon Dioxide 29 Anion Gap 8 BUN 16 Creatinine 0.85 Est GFR ( Amer) > 60 Est GFR (Non-Af Amer) > 60 Glucose 102 Calcium 9.0 Total Bilirubin 0.4 AST 25 ALT 37 Alkaline Phosphatase 81 Total Protein 6.9 Albumin 3.7 Impressions: Chest X-Ray 04/10/17 16:42 IMPRESSION: NO SIGNIFICANT RADIOGRAPHIC FINDING IN THE CHEST. Chest/Abdomen CTA 04/10/17 19:44 IMPRESSION: NORMAL CTA OF THE CHEST. NO PULMONARY EMBOLI. Assessment & Plan - Diagnosis (1) Asthma exacerbation Is this a current diagnosis for this admission?: Yes (2) GERD (gastroesophageal reflux disease) Is this a current diagnosis for this admission?: YesPlan: modified BA swallow;reverse Trendelenberg (3) Leukocytosis, unspecified Is this a current diagnosis for this admission?: Yes (4) Morbid obesity Is this a current diagnosis for this admission?: Yes
[2017-04-15] MEDS: MONTELUKAST SODIUM 10 MG TABLET PO SCH (21:45)
[2017-04-16] MEDS: HEPARIN SOD (PORCINE) 5,000 UNIT/ML 1 ML SYRINGE SUBCUT SCH ×3 (05:06→21:45)
[2017-04-16 07:35] LABS: HEMATOCRIT 36.1 % (36.0-47.0); HEMOGLOBIN 11.2 g/dL (12.0-15.5); HGB HCT DIFFERENCE -2.5; MEAN CORPUSCULAR HEMOGLOBIN 22.6 pg (27.0-33.4); MEAN CORPUSCULAR HGB CONC 30.9 g/dL (32.0-36.0); MEAN CORPUSCULAR VOLUME 73 fl (80-97); RED BLOOD COUNT 4.94 10^6/uL (3.72-5.28); RED CELL DISTRIBUTION WIDTH 16.9 % (11.5-14.0); WHITE BLOOD COUNT 26.1 10^3/uL (4.0-10.5)
[2017-04-16] MEDS: PREDNISONE 20 MG TABLET PO SCH (07:48)
[2017-04-16] MEDS: LANSOPRAZOLE 30 MG TAB.RAP.DR PO SCH (07:49)
[2017-04-16] MEDS: ERYTHROMYCIN BASE 250 MG TABLET PO SCH ×3 (07:49→17:54)
[2017-04-16] MEDS: HYDROCODONE BIT/HOMATROPINE 5-1.5 MG TABLET PO PRN (07:54)
[2017-04-16 08:19] LABS: BAND NEUTROPHILS % (MANUAL) 1 % (3-5); BASOPHILS % (MANUAL) 0 % (0-2); EOSINOPHILS % (MANUAL) 1 % (0-6); LYMPHOCYTES % (MANUAL) 23 % (13-45); NUCLEATED RED BLOOD CELLS 1 /100 WBC (0); TOTAL CELLS COUNTED 100
[2017-04-16 08:22] LABS: ANISOCYTOSIS 1+; HYPOCHROMASIA 2+; MICROCYTOSIS 2+; OVALOCYTES SLIGHT; POIKILOCYTOSIS 2+; TARGET CELLS 1+; TEAR DROP CELLS SLIGHT
[2017-04-16] MEDS: ALBUTEROL SULFATE 0.083% NEB 2.5 MG/3 ML AMPUL NEB PRN ×2 (08:31→11:30)
[2017-04-16] MEDS: BUDESONIDE NEB 0.5 MG/2 ML AMPUL NEB SCH ×2 (08:31→19:53)
[2017-04-16] MEDS: SENNOSIDES/DOCUSATE 8.6-50 MG 1 EACH TABLET PO SCH ×2 (11:12→17:53)
[2017-04-16] MEDS: FLUTICASONE NASAL SPRAY 50 MCG/SPRY 120 SPRAY/16 GM NASL SCH ×2 (11:12→21:44)
[2017-04-16] MEDS: NYSTATIN/DEXAMETH/DIPHEN SUSP 120 ML PO SCH ×4 (11:13→21:44)
[2017-04-16] MEDS: OXYCODONE-ACETAMINOPHEN 5-325 MG TABLET PO PRN ×2 (11:19→20:34)
[2017-04-16] MEDS: DEXAMETHASONE SOD PHOS INJ 10 MG/1 ML VIAL IV SCH ×2 (13:42→21:44)
--- NOTE | 2017-04-16 15:16 | PDOC PROGRESS REPORT ---
Subjective Progress Note for:: 04/16/17 Subjective:: reason for visit: f/u acute bronchitis hospital course: per other's notes - "MODE MAURO is a 36 year old female with a past medical history of morbid obesity and bipolar who was in her usual state of health until approximately 2 days prior to presentation having shortness of breath, nonproductive cough and wheeze prompting to seek evaluation emergency room where she receives Solu-Medrol albuterol and Atrovent , workup is unremarkable with exception to leukocytosis. She remains markedly short of breath requiring BiPAP, denies chest pain nausea vomiting or diaphoresis. She is very to the hospitalist for admission." she denies childhood asthma, smoked 1/2 ppd for only a year and that was 10 years ago, no family hx of lung or liver disease or connective tissue disorders. she reports at least 2 prior episodes of bronchitis and one influenza pneumonia. she denies heartburn, GERD symptoms. she is obese but denies any knowledge of sleep apnea or heavy snoring, daytime sleepiness, chronic HAs. overall feels about the same, not sleeping at night due to worsening symptoms when she falls asleep, still wheezing and continues coughing a dry hacking cough that worsens her wheezing and breathlessness; she is off BiPAP 4 days running. symptoms continue to be worse at night. ROS: she denies fevers, chills, chest pain, n/v/d. as above, all systems reviewed, remaining systems negative. Physical Exam Vital Signs: Temp Pulse Resp BP Pulse Ox 98.1 F 78 19 120/72 96 04/16/17 12:11 04/16/17 12:11 04/16/17 12:11 04/16/17 12:11 04/16/17 12:11 Intake & Output 04/15/17 04/16/17 04/17/17 06:59 06:59 06:59 Intake Total 1583 1653 810 Balance 1583 1653 810 Weight 113.3 kg 113.3 kg General appearance: PRESENT: morbidly obese, well-developed, well-nourished Head exam: PRESENT: atraumatic, normocephalic Eye exam: PRESENT: EOMI. ABSENT: scleral icterus Mouth exam: PRESENT: moist, neck supple Neck exam: ABSENT: carotid bruit, JVD Respiratory exam: PRESENT: no rhonchi, but exp wheezes persist; no accessory muscle use Cardiovascular exam: PRESENT: RRR. ABSENT: systolic murmur Pulses: PRESENT: normal radial pulses, normal dorsalis pedis pul GI/Abdominal exam: PRESENT: normal bowel sounds, soft. ABSENT: tenderness Extremities exam: PRESENT: pedal edema - non pitting. ABSENT: calf tenderness Musculoskeletal exam: PRESENT: ambulatory, full ROM Neurological exam: PRESENT: alert, awake, oriented to person, oriented to place , oriented to time Psychiatric exam: PRESENT: appropriate affect, normal mood Skin exam: PRESENT: warm. ABSENT: rash Results Laboratory Results: 04/16/17 06:19 04/14/17 06:13 04/16/17 06:19 WBC 26.1 H RBC 4.94 Hgb 11.2 L Hct 36.1 MCV 73 L MCH 22.6 L MCHC 30.9 L RDW 16.9 H Plt Count 214 Seg Neutrophils % Not Reportable Lymphocytes % Not Reportable Monocytes % Not Reportable Eosinophils % Not Reportable Basophils % Not Reportable Absolute Neutrophils Not Reportable Absolute Lymphocytes Not Reportable Absolute Monocytes Not Reportable Absolute Eosinophils Not Reportable Absolute Basophils Not Reportable Assessment & Plan - Diagnosis (1) Reactive airway disease with acute exacerbation Is this a current diagnosis for this admission?: YesPlan: this has been a very difficult case. her bronchospasm is refractory to all usual treatments and simply will not resolve. I will change to IV decadron, schedule duonebs and continue prn nebs, pulmicort and upper airway antihistamines and decongestants (2) Leukocytosis, unspecified Qualifiers: Leukocytosis type: leukemoid reaction Qualified Code(s): D72.823 - Leukemoid reaction Is this a current diagnosis for this admission?: YesPlan: worse, likely margination from steroids use and with change in steroids will likely wosen yet again. consider hematology consult to assist. (3) GERD (gastroesophageal reflux disease) Is this a current diagnosis for this admission?: YesPlan: for UGI series tomorrow to see if esophageal dysmotility may be contributing to the refractory nature of his problem. (4) Acute bacterial bronchitis Is this a current diagnosis for this admission?: Yes (5) Morbid obesity Is this a current diagnosis for this admission?: Yes (6) Chronic narcotic dependence Is this a current diagnosis for this admission?: YesPlan: stable, continue home regimen - Time Time Spent with patient: 25-34 minutes Medications reviewed and adjusted accordingly: Yes
[2017-04-16] MEDS: IPRATROPIUM/ALBUTEROL 0.5-2.5 MG/3 ML AMPUL NEB SCH (16:37)
--- NOTE | 2017-04-16 17:30 | RADIOLOGY REPORT (SQ) ---
EXAM DESCRIPTION: CTA CHEST COMPLETED DATE/TIME: 04/16/2017 4:33 pm REASON FOR STUDY: hypoxia persistent wheezing COMPARISON: 04/10/2017. TECHNIQUE: CT scan of the chest performed using helical scanning technique with dynamic intravenous contrast injection. Images reviewed with lung, soft tissue and bone windows. Reconstructed coronal and sagittal MPR images reviewed. Additional 3 dimensional post-processing performed to develop Maximal Intensity Projection images (DE P). All images stored on PACS. All CT scanners at this facility use dose modulation, iterative reconstruction, and/or weight based d osing when appropriate to reduce radiation dose to as low as reasonably achievable (ALARA). [facility]: Dose Right [facility]: CareDose [facility]: Dose Right [facility]: Teradose 4D [facility]: Invajo CONTRAST TYPE AND DOSE: contrast/concentration: Isovue 370.00 mg/ml; Total Contrast Delivered: 82.0 ml; Total Saline Delivered: 110.0 ml RENAL FUNCTION: None required. The patient is less than 50 years old. RADIATION DOSE: Up-to-date CT equipment and radiation dose reduction techniques were employed. CTDIv ol: 3.3 - 57.9 mGy. DLP: 1337 mGy-cm. . LIMITATIONS: None. FINDINGS: LUNGS AND PLEURA: Mild areas of dependent subsegmental atelectasis. Trace right pleural f luid. AORTA AND GREAT VESSELS: No aneurysm or dissection. HEART: No pericardial effusion. PULMONARY ARTERIES: No emboli visualized in the main pulmonary arteries or the segmental branches. HILAR AND MEDIASTINAL STRUCTURES: No identified masses or abnormal nodes. HARDWARE: None in the chest. UPPER ABDOMEN: No significant findings. Limited exam. THYROID AND OTHER SOFT TISSUES: No masses. No adenopathy. BONES: No acute or significant finding. 3D MIPS: Confirm above findings. OTHER: No other significant finding. IMPRESSION: 1. No pulmonary embolus. 2. Mild dependent subsegmental atelectasis with trace pleural fluid has developed. TECHNICAL DOCUMENTATION: JOB ID: [id number] Quality ID # [id number]: Final reports with documentation of one or more dose reduction techniques (e.g., Au tomated exposure control, adjustment of the mA and/or kV according to patient size, use of iterative reconstruction technique) 2010 [employer]- All Rights Reserved
[2017-04-16] MEDS: CETIRIZINE 5 MG TABLET PO SCH (17:54)
[2017-04-16] MEDS: MONTELUKAST SODIUM 10 MG TABLET PO SCH (21:44)
[2017-04-17] MEDS: HYDROCODONE BIT/HOMATROPINE 5-1.5 MG TABLET PO PRN ×3 (01:06→17:11)
[2017-04-17] MEDS: HEPARIN SOD (PORCINE) 5,000 UNIT/ML 1 ML SYRINGE SUBCUT SCH ×3 (05:31→22:01)
[2017-04-17] MEDS: DEXAMETHASONE SOD PHOS INJ 10 MG/1 ML VIAL IV SCH (05:31)
[2017-04-17] MEDS: LANSOPRAZOLE 30 MG TAB.RAP.DR PO SCH (08:13)
[2017-04-17] MEDS: ERYTHROMYCIN BASE 250 MG TABLET PO SCH ×3 (08:13→16:29)
[2017-04-17] MEDS: BUDESONIDE NEB 0.5 MG/2 ML AMPUL NEB SCH ×2 (08:34→19:51)
[2017-04-17] MEDS: IPRATROPIUM/ALBUTEROL 0.5-2.5 MG/3 ML AMPUL NEB SCH ×4 (08:34→23:42)
[2017-04-17] MEDS: NYSTATIN/DEXAMETH/DIPHEN SUSP 120 ML PO SCH ×4 (09:00→21:59)
[2017-04-17] MEDS: SENNOSIDES/DOCUSATE 8.6-50 MG 1 EACH TABLET PO SCH ×2 (09:00→17:12)
[2017-04-17] MEDS: FLUTICASONE NASAL SPRAY 50 MCG/SPRY 120 SPRAY/16 GM NASL SCH ×2 (09:03→21:59)
--- NOTE | 2017-04-17 10:34 | ST Inp Modified Barium Swallow ---
Medical Diagnosis - Medical Diagnoses Medical Diagnosis Description & ICD-10 Code(s): aspiration - ICD-10 Tx Diagnosis Coding (1) Dysphagia, unspecified ICD-10 Code(s): R13.10 - DYSPHAGIA, UNSPECIFIED ST Inpatient [place] - General Date: 04/17/17 Date of Onset: 04/10/17 - History History Obtained From: Patient - per EMR -: Medical - per EMR; SOB, COPD exacerbation, pneumonitis, bronchitis, nonproductive cough, respirtory distress, GERD, morbid obesity, reactive airway disease with acute exacerbation, acute bacterial bronchitis, chronic narcotic dependence. PMHx: bipolar disorder, morbid obesity, GERD, arthritis, depression. chest xray shows no significant radiographic findings. Chest CTA shows normal CTA no pulmonary emboli. Per pt, states coughing and choking on solids and liquids, "sticks in mid chest -throat area", "chewable prevacid helps ", reports "burning" sensation. Medications: Medications Reviewed - meds present that impair the swallow Allergies: Refer to medical record - Subjective Current Nutritional Means: PO Current PO Diet: Regular Current Symptoms: Coughing, c/o Globus sensation Pain: denies pain, no signs/symptoms of pain - Objective Assessment: Upright, Left Lateral - Food Trials Food Trials Used: Thin liquids, Pureed, Regular The Patient: Was Able to Self Feed - Assessment Labial Function: Within Normal Limits Lingual Function: Within Normal Limits Mandibular Function: Within Normal Limits Dentition: Full Velo-Pharyngeal Function: Unremarkable Laryngeal Function: Volitional Cough, Volitional Swallow - Pharyngeal Stage Initiation of Pharyngeal Stage: Normal Decreased Laryngeal Elevation: No Reduced Velo-Pharyngeal Closure: no Reduced Pressure Generation: No Reduced Tongue Base Retraction: No Pre-Swallowing Pooling in Valleculae: None Pre-Swallowing Pooling in Pyriforms: None Reduced Thyro-Hyiod Approximation: No Reduced Epiglottic Excursion: No Reduced Pharyngeal Peristalsis: No Post Swallow Residuals in Valleculae: None Post Swallow Residuals in Pyriforms: None - Impression/Summary Laryngeal Penetration: No Tracheal Aspiration: no Patient Presents With: Normal swallow at eval - safe and effective swallow observed Risk of Aspiration: Minimal Risk of Nutritional Compromise: None - Recommendations NPO: no Solid Diet Recommendations: Regular Liquid Diet Recommendations: Thin Strict Aspitarion Precautions: No Dysphagia Therapy with COLOR PASTE MIXING SUPERVISOR: No Recommended Techniques: Fully Upright During Meal Supervision: Independent Other Recommendations: 1) DIET: recommend continued current diet. No penetration or aspiration observed. 2) Recommend consider barium swallow/upper GI series due to WNL oral and pharyngeal swallow. Pt continues to report globus sensation in "mid chest-throat.". SUMMARY: Pt presents with a safe and effective swallow with no penetration or aspiration observed, no oral or pharyngeal residuals. Pt reported globus sensation throughout evaluation, however no radiographic findings in oral or pharyngeal cavities correlating with pt reports. Pt observed to take minimal bites of pudding-increased bite size with ST cues, however pt observed to eat jadyn cracker in one large bite. ST to sign off at this time. - Time Total Time: 20 Total Timed Minutes: 0
--- NOTE | 2017-04-17 12:37 | PDOC PROGRESS REPORT ---
Subjective Progress Note for:: 04/17/17 Subjective:: i feel a little better Physical Exam Vital Signs: Temp Pulse Resp BP Pulse Ox 98.2 F 72 18 125/58 L 98 04/17/17 11:45 04/17/17 11:45 04/17/17 11:45 04/17/17 11:45 04/17/17 11:45 Intake & Output 04/16/17 04/17/17 04/18/17 06:59 06:59 06:59 Intake Total 1653 1190 Balance 1653 1190 Weight 113.3 kg 113.2 kg General appearance: PRESENT: disheveled, mild distress, morbidly obese, well- developed Head exam: PRESENT: atraumatic, normocephalic Eye exam: PRESENT: conjunctiva pale, EOMI Mouth exam: PRESENT: moist, neck supple, tongue midline Neck exam: ABSENT: carotid bruit, JVD, lymphadenopathy, thyromegaly Respiratory exam: PRESENT: prolonged expiratory phas, rhonchi, symmetrical, wheezes Cardiovascular exam: PRESENT: RRR, +S1, +S2 Pulses: PRESENT: normal radial pulses GI/Abdominal exam: PRESENT: normal bowel sounds, soft, other - obese. ABSENT: distended, guarding, mass, organolmegaly, rebound, tenderness Rectal exam: PRESENT: deferred Musculoskeletal exam: PRESENT: normal inspection Neurological exam: PRESENT: alert, awake Psychiatric exam: PRESENT: normal mood Skin exam: PRESENT: dry, warm Results Laboratory Results: 04/16/17 06:19 04/14/17 06:13 Impressions: Chest X-Ray 04/10/17 16:42 IMPRESSION: NO SIGNIFICANT RADIOGRAPHIC FINDING IN THE CHEST. Chest/Abdomen CTA 04/16/17 00:00 IMPRESSION: 1. No pulmonary embolus. 2. Mild dependent subsegmental atelectasis with trace pleural fluid has developed. Assessment & Plan - Diagnosis (1) Asthma exacerbation Is this a current diagnosis for this admission?: YesPlan: minimal improvement no improvement in exertion tolerance (2) GERD (gastroesophageal reflux disease) Is this a current diagnosis for this admission?: Yes (3) Leukocytosis, unspecified Qualifiers: Qualified Code(s): D72.823 - Leukemoid reaction Is this a current diagnosis for this admission?: YesPlan: xonsider dcsystemic steroids as well as antibiotic(Erythomycin for GI stimulation) (4) Morbid obesity Is this a current diagnosis for this admission?: Yes
--- NOTE | 2017-04-17 16:29 | PDOC PROGRESS REPORT ---
Subjective Progress Note for:: 04/17/17 Subjective:: reason for visit: f/u acute bronchitis hospital course: per other's notes - "MODE MAURO is a 36 year old female with a past medical history of morbid obesity and bipolar who was in her usual state of health until approximately 2 days prior to presentation having shortness of breath, nonproductive cough and wheeze prompting to seek evaluation emergency room where she receives Solu-Medrol albuterol and Atrovent , workup is unremarkable with exception to leukocytosis. She remains markedly short of breath requiring BiPAP, denies chest pain nausea vomiting or diaphoresis. She is very to the hospitalist for admission." she denies childhood asthma, smoked 1/2 ppd for only a year and that was 10 years ago, no family hx of lung or liver disease or connective tissue disorders. she reports at least 2 prior episodes of bronchitis and one influenza pneumonia. she c/o heartburn and nocturnal GERD symptoms. she is obese but denies any knowledge of sleep apnea or heavy snoring, daytime sleepiness, chronic HAs. no exposure to animal dander or birds. overall feels about the same, not sleeping at night due to worsening symptoms when she falls asleep, still wheezing and continues coughing a dry hacking cough that worsens her wheezing and breathlessness; she is off BiPAP 5 days running. symptoms continue to be worse at night. ROS: she denies fevers, chills, chest pain, n/v/d. as above, all systems reviewed, remaining systems negative. Physical Exam Vital Signs: Temp Pulse Resp BP Pulse Ox 97.8 F 72 20 109/57 L 97 04/17/17 15:59 04/17/17 15:59 04/17/17 15:59 04/17/17 15:59 04/17/17 15:59 Intake & Output 04/16/17 04/17/17 04/18/17 06:59 06:59 06:59 Intake Total 1653 1190 Balance 1653 1190 Weight 113.3 kg 113.2 kg General appearance: PRESENT: morbidly obese, well-developed, well-nourished Head exam: PRESENT: atraumatic, normocephalic Eye exam: PRESENT: EOMI. ABSENT: scleral icterus Mouth exam: PRESENT: moist, neck supple Neck exam: ABSENT: carotid bruit, JVD Respiratory exam: PRESENT: no rhonchi, but prominent exp wheezes persist with shallow breathing due to inciting cough and therefore accessory muscle use Cardiovascular exam: PRESENT: RRR. ABSENT: systolic murmur Pulses: PRESENT: normal radial pulses, normal dorsalis pedis pul GI/Abdominal exam: PRESENT: normal bowel sounds, soft. ABSENT: tenderness Extremities exam: PRESENT: pedal edema - non pitting. ABSENT: calf tenderness Musculoskeletal exam: PRESENT: ambulatory, full ROM Neurological exam: PRESENT: alert, awake, oriented to person, oriented to place , oriented to time Psychiatric exam: PRESENT: appropriate affect, normal mood Skin exam: PRESENT: warm. ABSENT: rash Results Laboratory Results: 04/16/17 06:19 04/14/17 06:13 Assessment & Plan - Diagnosis (1) Reactive airway disease with acute exacerbation Is this a current diagnosis for this admission?: YesPlan: this has been a very difficult case. her bronchospasm is refractory to all usual treatments and simply will not resolve. I even tried a change to IV decadron, schedule duonebs and continue prn nebs, pulmicort and upper airway antihistamines and decongestants without success. MBS didn't reveal any abnl's and recommending UGI series for tomorrow. (2) Leukocytosis, unspecified Qualifiers: Leukocytosis type: leukemoid reaction Qualified Code(s): D72.823 - Leukemoid reaction Is this a current diagnosis for this admission?: YesPlan: unclear etiology, likely margination from steroids use. ck again in am consider hematology consult to assist if they are available due to Holiday. (3) GERD (gastroesophageal reflux disease) Is this a current diagnosis for this admission?: YesPlan: continue PPI. for UGI series tomorrow to see if esophageal dysmotility may be contributing to the refractory nature of his problem. (4) Acute bacterial bronchitis Is this a current diagnosis for this admission?: YesPlan: working diagnosis but with worsening monocytosis now feel more strongly this is viral in nature. failed to progress and still not back to baseline; dis continued doxycycline and chgd to levaquin but made no difference ; continue systemic steroids. added antitussive and decreased atrovent use as it may have been drying out her secretions making them more difficult to clear. dr shah has seen in consultation and added upper airway and allergy treatment. I agree with evaluation of her swallow/esophageal dysmotility to eval risk for chronic micro aspiration particularly at night. screen neg for influenza, adenovirus abs still pending. (5) Morbid obesity Is this a current diagnosis for this admission?: Yes (6) Chronic narcotic dependence Is this a current diagnosis for this admission?: Yes - Time Time Spent with patient: 35 or more minutes - discussed with pulmonary at the bedside - Plan Summary Plan Summary: not sure where to go from here. I suspect she would benefit from bronch but pulmonary following and doesn't see the benefit at this point. I stopped her steroids today as they don't seem to be helping and need to ck CBC in morning. she remains on promotility agent hoping this is all GI related and while that has helped with her constipation issues not really impacting her bronchospasm as yet.
[2017-04-17] MEDS: CETIRIZINE 5 MG TABLET PO SCH (17:12)
--- NOTE | 2017-04-17 18:58 | XCELERA REPORT ---
[address] [address] Transthoracic Echocardiogram Report Name: MODE MAURO Age: 36 yrs Gender: Female : 1980 Patient Status: Inpatient Patient Location: 5\S\533\S\A Study Date: 04/17/2017 11:01 AM Height: 62 in Weight: 249 lb BSA: 2.1 m2 Procedure: A two-dimensional transthoracic echocardiogram with color flow and Doppler was performed. Study Quality: Fair. Reason For Study: PULMONARY HYPERTENSION History: PULMONARY HYPERTENSION. Ordering Physician: PATRICE STRAUSS Performed By: Lamar Muse Interpretation Summary The left ventricle is normal in size. There is normal left ventricular wall thickness. LV EF is 65% Left ventricular systolic function is normal. Doppler measurements suggest normal left ventricular diastolic function The left ventricular wall motion is normal. There is no thrombus. The right ventricle is normal in size and function. The left atrial size is normal. There is no evidence of mitral valve prolapse. There is no mitral valve stenosis. There is a trace amount of mitral regurgitation There is no aortic valve stenosis There is no LVOT obstruction. No aortic regurgitation is present. There is no tricuspid stenosis. There is a trace amount of tricuspid regurgitation Right ventricular systolic pressure is normal. RVSP is 25 to 30 mm of Hg , with RA mean of 5 to 10. The aortic root is normal size. There is no pericardial effusion. MMode/2D Measurements \T\ Calculations RVDd: 2.5 cm LVIDd: 4.1 cm FS: 34.0 % Ao root diam: 2.6 cm IVSd: 1.1 cm LVIDs: 2.7 cm EDV(Teich): 72.5 ml LVPWd: 0.96 cm ESV(Teich): 26.5 ml Ao root area: 5.5 cm2 EF(Teich): 63.4 % LA dimension: 2.8 cm Doppler Measurements \T\ Calculations MV E max juancarlos: MV P1/2t max juancarlos: Ao V2 max: LV V1 max P.6 cm/sec 71.6 cm/sec 113.9 cm/sec 4.7 mmHg MV A max juancarlos: MV P1/2t: 80.0 msec Ao max PG: LV V1 max: 60.7 cm/sec 5.2 mmHg 108.1 cm/sec MV E/A: 1.2 MVA(P1/2t): 2.7 cm2 MV dec slope: 261.9 cm/sec2 MV dec time: 0.27 sec PA V2 max: PI end-d juancarlos: TR max juancarlos: 79.0 cm/sec 95.6 cm/sec 224.0 cm/sec PA max PG: TR max P.5 mmHg 20.1 mmHg Left Ventricle The left ventricle is normal in size. There is normal left ventricular wall thickness. LV EF is 65%. Left ventricular systolic function is normal. Doppler measurements suggest normal left ventricular diastolic function. The left ventricular wall motion is normal. There is no thrombus. Right Ventricle The right ventricle is normal in size and function. Atria The right atrium is normal. The left atrial size is normal. Mitral Valve There is no evidence of mitral valve prolapse. There is no vegetation seen on the mitral valve. There is no mitral valve stenosis. There is a trace amount of mitral regurgitation. Aortic Valve There is no aortic valvular vegetation. There is no aortic valve stenosis. There is no LVOT obstruction. No aortic regurgitation is present. Tricuspid Valve There is no tricuspid stenosis. There is a trace amount of tricuspid regurgitation. Right ventricular systolic pressure is normal. RVSP is 25 to 30 mm of Hg , with RA mean of 5 to 10. Pulmonic Valve There is no pulmonic valvular stenosis. There is a trace amount of pulmonic regurgitation. Great Vessels The aortic root is normal size. Effusions There is no pericardial effusion. : PATRICE STRAUSS > Ilda Lamar
[2017-04-17] MEDS: MONTELUKAST SODIUM 10 MG TABLET PO SCH (21:59)
[2017-04-17] MEDS: OXYCODONE-ACETAMINOPHEN 5-325 MG TABLET PO PRN (21:59)
[2017-04-18] MEDS: HEPARIN SOD (PORCINE) 5,000 UNIT/ML 1 ML SYRINGE SUBCUT SCH ×3 (05:00→21:55)
[2017-04-18 06:35] LABS: HEMATOCRIT 36.1 % (36.0-47.0); HEMOGLOBIN 11.3 g/dL (12.0-15.5); HGB HCT DIFFERENCE -2.2; MEAN CORPUSCULAR HEMOGLOBIN 22.7 pg (27.0-33.4); MEAN CORPUSCULAR HGB CONC 31.2 g/dL (32.0-36.0); MEAN CORPUSCULAR VOLUME 73 fl (80-97); RED BLOOD COUNT 4.98 10^6/uL (3.72-5.28); RED CELL DISTRIBUTION WIDTH 16.9 % (11.5-14.0)
[2017-04-18 06:39] LABS: BAND NEUTROPHILS % (MANUAL) 3 % (3-5); BASOPHILS % (MANUAL) 0 % (0-2); EOSINOPHILS % (MANUAL) 0 % (0-6); LYMPHOCYTES % (MANUAL) 21 % (13-45); TOTAL CELLS COUNTED 100
[2017-04-18 06:41] LABS: ANISOCYTOSIS 1+; HYPOCHROMASIA SLIGHT; MICROCYTOSIS 1+; OVALOCYTES SLIGHT; POIKILOCYTOSIS SLIGHT; POLYCHROMASIA SLIGHT; SCHISTOCYTES SLIGHT; TARGET CELLS SLIGHT; TOXIC GRANULATION SLIGHT
[2017-04-18] MEDS: ERYTHROMYCIN BASE 250 MG TABLET PO SCH ×3 (07:54→16:31)
[2017-04-18] MEDS: LANSOPRAZOLE 30 MG TAB.RAP.DR PO SCH (07:55)
[2017-04-18] MEDS: HYDROCODONE BIT/HOMATROPINE 5-1.5 MG TABLET PO PRN ×2 (07:55→21:59)
[2017-04-18] MEDS: IPRATROPIUM/ALBUTEROL 0.5-2.5 MG/3 ML AMPUL NEB SCH ×2 (08:59→16:05)
[2017-04-18] MEDS: BUDESONIDE NEB 0.5 MG/2 ML AMPUL NEB SCH ×2 (08:59→20:15)
[2017-04-18] MEDS: SENNOSIDES/DOCUSATE 8.6-50 MG 1 EACH TABLET PO SCH ×2 (10:02→17:49)
[2017-04-18] MEDS: FLUTICASONE NASAL SPRAY 50 MCG/SPRY 120 SPRAY/16 GM NASL SCH ×2 (10:03→21:55)
[2017-04-18] MEDS: NYSTATIN/DEXAMETH/DIPHEN SUSP 120 ML PO SCH ×4 (10:04→21:56)
[2017-04-18] MEDS: OXYCODONE-ACETAMINOPHEN 5-325 MG TABLET PO PRN ×2 (13:40→18:20)
[2017-04-18] MEDS: CETIRIZINE 5 MG TABLET PO SCH (17:50)
--- NOTE | 2017-04-18 18:14 | PDOC PROGRESS REPORT ---
Subjective Progress Note for:: 04/18/17 Subjective:: Is an extremely pleasant 36-year-old female who has persistent wheezing despite all usual attempts at reversing bronchospasm. My suspicion at this point is vocal cord dysfunction. The patient was initially presumed to have a viral infection, Levaquin was then added as she was not getting better. Steroids were stopped yesterday. Physical Exam Vital Signs: Temp Pulse Resp BP Pulse Ox 97.5 F 95 20 94/47 L 100 04/18/17 16:20 04/18/17 16:20 04/18/17 16:20 04/18/17 16:20 04/18/17 16:20 Intake & Output 04/17/17 04/18/17 04/19/17 06:59 06:59 06:59 Intake Total 1190 1673 760 Balance 1190 1673 760 Weight 113.2 kg 112.8 kg General appearance: PRESENT: no acute distress, cooperative Head exam: PRESENT: atraumatic Eye exam: PRESENT: EOMI Mouth exam: PRESENT: neck supple Respiratory exam: PRESENT: wheezes Cardiovascular exam: PRESENT: RRR GI/Abdominal exam: PRESENT: normal bowel sounds, soft Neurological exam: PRESENT: alert Psychiatric exam: PRESENT: appropriate affect Additional comments: Is noted to be primarily over the neck region. Lung tejada are at times clear. Wheezing is noted to be preferentially with forced exhalation. Results Laboratory Results: 04/18/17 04:15 04/14/17 06:13 04/18/17 04:15 WBC 32.0 H* RBC 4.98 Hgb 11.3 L Hct 36.1 MCV 73 L MCH 22.7 L MCHC 31.2 L RDW 16.9 H Plt Count 217 Seg Neutrophils % Not Reportable Lymphocytes % Not Reportable Monocytes % Not Reportable Eosinophils % Not Reportable Basophils % Not Reportable Absolute Neutrophils Not Reportable Absolute Lymphocytes Not Reportable Absolute Monocytes Not Reportable Absolute Eosinophils Not Reportable Absolute Basophils Not Reportable Impressions: Chest X-Ray 04/10/17 16:42 IMPRESSION: NO SIGNIFICANT RADIOGRAPHIC FINDING IN THE CHEST. Chest/Abdomen CTA 04/16/17 00:00 IMPRESSION: 1. No pulmonary embolus. 2. Mild dependent subsegmental atelectasis with trace pleural fluid has developed. Assessment & Plan - Diagnosis (2) Asthma exacerbation Is this a current diagnosis for this admission?: Yes (3) Respiratory distress Is this a current diagnosis for this admission?: Yes (4) GERD (gastroesophageal reflux disease) Is this a current diagnosis for this admission?: Yes (5) Morbid obesity Is this a current diagnosis for this admission?: Yes (6) Acute bacterial bronchitis Is this a current diagnosis for this admission?: Yes (7) Chronic narcotic dependence Is this a current diagnosis for this admission?: Yes (8) Leukocytosis, unspecified Qualifiers: Leukocytosis type: leukemoid reaction Qualified Code(s): D72.823 - Leukemoid reaction Is this a current diagnosis for this admission?: Yes (9) Reactive airway disease with acute exacerbation Is this a current diagnosis for this admission?: Yes - Time Time Spent with patient: 15-24 minutes Medications reviewed and adjusted accordingly: Yes Anticipated discharge: Home Within: within 24 hours - Inpatient Certification Medical Necessity: Risk of Complication if Not Cared For in Hospital - Plan Summary Plan Summary: Appears to be turning the corner. She has had a very extensive workup and many medications have been tried for her symptoms. I am suspicious of vocal cord dysfunction. Also, despite the fact that she did not improve with antireflux therapy I think she should be continued on antireflux therapy. Hopefully, I will discharge the patient tomorrow.
[2017-04-18] MEDS: MONTELUKAST SODIUM 10 MG TABLET PO SCH (21:56)
[2017-04-19] MEDS: IPRATROPIUM/ALBUTEROL 0.5-2.5 MG/3 ML AMPUL NEB SCH ×4 (00:54→23:40)
[2017-04-19] MEDS: HEPARIN SOD (PORCINE) 5,000 UNIT/ML 1 ML SYRINGE SUBCUT SCH ×3 (06:18→21:45)
[2017-04-19 06:29] LABS: ANION GAP 7 (5-19); BLOOD UREA NITROGEN 24 mg/dL (7-20); CALCIUM 8.8 mg/dL (8.4-10.2); CARBON DIOXIDE 32 mmol/L (22-30); CHLORIDE 97 mmol/L (98-107); CREATININE RESULT 0.93 mg/dL (0.52-1.25); GLUCOSE 94 mg/dL (75-110); POTASSIUM 4.5 mmol/L (3.6-5.0); SODIUM 135.9 mmol/L (137-145)
[2017-04-19] MEDS: HYDROCODONE BIT/HOMATROPINE 5-1.5 MG TABLET PO PRN ×2 (06:48→21:45)
[2017-04-19 07:02] LABS: HEMATOCRIT 35.7 % (36.0-47.0); HEMOGLOBIN 11.1 g/dL (12.0-15.5); HGB HCT DIFFERENCE -2.4; MEAN CORPUSCULAR HEMOGLOBIN 22.5 pg (27.0-33.4); MEAN CORPUSCULAR HGB CONC 31.2 g/dL (32.0-36.0); MEAN CORPUSCULAR VOLUME 72 fl (80-97); RED BLOOD COUNT 4.95 10^6/uL (3.72-5.28); RED CELL DISTRIBUTION WIDTH 16.9 % (11.5-14.0); WHITE BLOOD COUNT 24.3 10^3/uL (4.0-10.5)
[2017-04-19 07:05] LABS: BAND NEUTROPHILS % (MANUAL) 3 % (3-5); BASOPHILS % (MANUAL) 0 % (0-2); EOSINOPHILS % (MANUAL) 3 % (0-6); LYMPHOCYTES % (MANUAL) 32 % (13-45); TOTAL CELLS COUNTED 100
[2017-04-19 07:08] LABS: ANISOCYTOSIS 1+; HYPOCHROMASIA 1+; MICROCYTOSIS 1+; OVALOCYTES SLIGHT; POIKILOCYTOSIS SLIGHT; POLYCHROMASIA SLIGHT; TARGET CELLS SLIGHT; TOXIC GRANULATION SLIGHT; TOXIC VACUOLATION PRESENT
--- NOTE | 2017-04-19 07:45 | RADIOLOGY REPORT (SQ) ---
EXAM DESCRIPTION: BARIUM SWALLOW ESOPHAGUS COMPLETED DATE/TIME: 04/17/2017 2:37 pm REASON FOR STUDY: globus sensation ,mid chest,wheezing COMPARISON: None. TECHNIQUE: Under fluoroscopic guidance, patient ingested effervescent granules followed by thick and thin barium. Fluoroscopic spot images and routine radiographic images acquired and stored on PACS. 12 MM BARIUM TABLET GIVEN: The patient swallowed a 12 mm barium tablet which passed easily through th e esophagus and into the stomach without delay. LIMITATIONS: None. FLUOROSCOPY TIME: FLUORO TIME: 2 minutes 6 images saved to PACS. FINDINGS: NEUROMUSCULAR COORDINATION OF SWALLOW: Normal. No aspiration. ESOPHAGEAL MOTILITY: Normal peristalsis. No esophageal spasm. ESOPHAGEAL MUCOSA: Normal mucosa without masses or ulceration. GASTRO-ESOPHAGEAL JUNCTION: Small hiatal hernia present. No gastroesophageal reflux seen on today's study. STOMACH: Normal without masses or ulcerations. GASTRIC OUTLET: No delay in emptying. Normal pylorus. DUODENAL BULB: Normal distention. No spasm or ulceration. DUODENUM: Mucosa normal. No extrinsic masses or malrotation. PROXIMAL SMALL BOWEL: Mucosa normal. No extrinsic masses or malrotation. NON-GI TRACT STRUCTURES: No significant finding. OTHER: No other significant finding. IMPRESSION: SMALL HIATAL HERNIA. OTHERWISE UNREMARKABLE STUDY. COMMENT: NONE Quality ID 145: Final reports for procedures using fluoroscopy that document radiation exposure bi stacy, or exposure time and number of fluorographic images (if radiation exposure indices are not avail able) TECHNICAL DOCUMENTATION: JOB ID: [id number] [employer]- All Rights Reserved
--- NOTE | 2017-04-19 07:46 | RADIOLOGY REPORT (SQ) ---
EXAM DESCRIPTION: KAJALIE SWALLOW COMPLETED DATE/TIME: 04/17/2017 10:28 am REASON FOR STUDY: ASPIRATION COMPARISON: None. TECHNIQUE: Videofluoroscopic swallowing examination was performed in conjunction with speech patholo gy. Videofluoroscopic imaging was obtained and reviewed and these are the findings: RADIATION DOSE: Fluoro time 1.1 minutes 1 images saved to PACS. LIMITATIONS: None FINDINGS: The patient was brought into the fluoro room and placed upright on a modified barium swall ow chair. The patient was then given multiple consistencies mixed with barium to swallow under live fluoroscopic video guidance. According to the Speech Pathologist there was no penetration or aspirat ion. IMPRESSION: NO EVIDENCE OF PENETRATION OR ASPIRATION.PLEASE SEE SPEECH PATHOLOGIST REPORT FOR OTHER FINDINGS AND RECOMMENDATIONS. COMMENT: None Quality ID 145: Final reports for procedures using fluoroscopy that document radiation exposure bi stacy, or exposure time and number of fluorographic images (if radiation exposure indices are not avail able) TECHNICAL DOCUMENTATION: JOB ID: [id number] [employer]- All Rights Reserved
[2017-04-19] MEDS: BUDESONIDE NEB 0.5 MG/2 ML AMPUL NEB SCH ×2 (07:52→19:39)
[2017-04-19] MEDS: ERYTHROMYCIN BASE 250 MG TABLET PO SCH ×3 (08:16→16:22)
[2017-04-19] MEDS: LANSOPRAZOLE 30 MG TAB.RAP.DR PO SCH (08:17)
[2017-04-19] MEDS: FLUTICASONE NASAL SPRAY 50 MCG/SPRY 120 SPRAY/16 GM NASL SCH ×2 (10:01→21:45)
[2017-04-19] MEDS: SENNOSIDES/DOCUSATE 8.6-50 MG 1 EACH TABLET PO SCH ×2 (10:01→17:41)
[2017-04-19] MEDS: NYSTATIN/DEXAMETH/DIPHEN SUSP 120 ML PO SCH ×4 (10:01→21:45)
--- NOTE | 2017-04-19 11:56 | PDOC PROGRESS REPORT ---
Subjective Progress Note for:: 04/19/17 Subjective:: Is an extremely pleasant 36-year-old female who has persistent wheezing despite all usual attempts at reversing bronchospasm. My suspicion at this point is vocal cord dysfunction. The patient was initially presumed to have a viral infection, Levaquin was then added as she was not getting better. Steroids were stopped 04/17/17., The patient again reports that she is starting to feel better. She was able to ambulate last night. She wishes to take a shower. She continues to complain of chest tightness and audible wheezing. She is mildly constipated but has no other abdominal complaints. She has no complaints.. Physical Exam Vital Signs: Temp Pulse Resp BP Pulse Ox 97.6 F 85 16 90/52 L 97 04/19/17 07:43 04/19/17 07:52 04/19/17 07:52 04/19/17 07:43 04/19/17 07:52 Intake & Output 04/18/17 04/19/17 04/20/17 06:59 06:59 06:59 Intake Total 1673 1350 Balance 1673 1350 Weight 112.8 kg 114.7 kg General appearance: PRESENT: no acute distress, cooperative Head exam: PRESENT: atraumatic Eye exam: PRESENT: EOMI Mouth exam: PRESENT: neck supple Respiratory exam: PRESENT: unlabored, wheezes Cardiovascular exam: PRESENT: RRR GI/Abdominal exam: PRESENT: normal bowel sounds, soft Rectal exam: PRESENT: deferred Neurological exam: PRESENT: alert, awake Psychiatric exam: PRESENT: appropriate affect Results Laboratory Results: 04/19/17 05:48 04/19/17 05:48 04/19/17 04/19/17 05:48 05:48 WBC 24.3 H RBC 4.95 Hgb 11.1 L Hct 35.7 L MCV 72 L MCH 22.5 L MCHC 31.2 L RDW 16.9 H Plt Count 227 Seg Neutrophils % Not Reportable Lymphocytes % Not Reportable Monocytes % Not Reportable Eosinophils % Not Reportable Basophils % Not Reportable Absolute Neutrophils Not Reportable Absolute Lymphocytes Not Reportable Absolute Monocytes Not Reportable Absolute Eosinophils Not Reportable Absolute Basophils Not Reportable Sodium 135.9 L Potassium 4.5 Chloride 97 L Carbon Dioxide 32 H Anion Gap 7 BUN 24 H Creatinine 0.93 Est GFR ( Amer) > 60 Est GFR (Non-Af Amer) > 60 Glucose 94 Calcium 8.8 Impressions: Chest X-Ray 04/10/17 16:42 IMPRESSION: NO SIGNIFICANT RADIOGRAPHIC FINDING IN THE CHEST. Chest/Abdomen CTA 04/16/17 00:00 IMPRESSION: 1. No pulmonary embolus. 2. Mild dependent subsegmental atelectasis with trace pleural fluid has developed. Modified Barium Swallow 04/17/17 00:00 IMPRESSION: NO EVIDENCE OF PENETRATION OR ASPIRATION.PLEASE SEE SPEECH PATHOLOGIST REPORT FOR OTHER FINDINGS AND RECOMMENDATIONS. Esophagus X-Ray 04/17/17 12:32 IMPRESSION: SMALL HIATAL HERNIA. OTHERWISE UNREMARKABLE STUDY. Assessment & Plan - Diagnosis (1) Asthma exacerbation Is this a current diagnosis for this admission?: Yes (2) Respiratory distress Is this a current diagnosis for this admission?: Yes (3) GERD (gastroesophageal reflux disease) Is this a current diagnosis for this admission?: Yes (4) Morbid obesity Is this a current diagnosis for this admission?: Yes (5) Acute bacterial bronchitis Is this a current diagnosis for this admission?: Yes (6) Leukocytosis, unspecified Qualifiers: Leukocytosis type: leukemoid reaction Qualified Code(s): D72.823 - Leukemoid reaction Is this a current diagnosis for this admission?: Yes (7) Reactive airway disease with acute exacerbation Is this a current diagnosis for this admission?: Yes - Time Time Spent with patient: 15-24 minutes - Inpatient Certification Medical Necessity: Risk of Complication if Not Cared For in Hospital - Patient does not have anyone available at home to care for her. Her mother will be available tomorrow. - Plan Summary Plan Summary: This is a morbidly obese black female who presents with wheezing. The differential includes asthma with exacerbation versus bronchospasm from irritating cause. Patient has not had any exposures that would lead to reactive airways dysfunction such as ammonia or chlorine. The patient has a small hiatal hernia which could be contributing to her symptoms based on GERD. At this point in time I am suspicious that she has underlying GERD which has triggered vocal cord dysfunction. She is slowly improving. I greatly appreciate the assistance from our client success director. The patient's mother will be available to assist in caring for her by tomorrow and I anticipate discharge tomorrow. The patient's leukocytosis is secondary to corticosteroids. It is resolving after discontinuation of steroids. I will repeat a level in the morning.
--- NOTE | 2017-04-19 13:31 | PDOC PROGRESS REPORT ---
Subjective Progress Note for:: 04/19/17 Subjective:: I am feeling better Physical Exam Vital Signs: Temp Pulse Resp BP Pulse Ox 97.6 F 85 18 90/52 L 96 04/19/17 07:43 04/19/17 07:43 04/19/17 07:43 04/19/17 07:43 04/19/17 07:43 Intake & Output 04/18/17 04/19/17 04/20/17 06:59 06:59 06:59 Intake Total 1673 1350 Balance 1673 1350 Weight 112.8 kg 114.7 kg General appearance: PRESENT: no acute distress, cooperative, disheveled, morbidly obese Head exam: PRESENT: atraumatic, normocephalic Eye exam: PRESENT: conjunctiva pale, EOMI Mouth exam: PRESENT: dry mucosa, neck supple, tongue midline Neck exam: ABSENT: carotid bruit, JVD, lymphadenopathy, thyromegaly Respiratory exam: PRESENT: decreased breath sounds, prolonged expiratory phas, rhonchi, symmetrical, unlabored, wheezes Cardiovascular exam: PRESENT: RRR, +S1, +S2 Pulses: PRESENT: normal radial pulses GI/Abdominal exam: PRESENT: normal bowel sounds, soft. ABSENT: distended, guarding, mass, organolmegaly, rebound, tenderness Rectal exam: PRESENT: deferred Musculoskeletal exam: PRESENT: normal inspection Neurological exam: PRESENT: alert, awake Psychiatric exam: PRESENT: normal mood Skin exam: PRESENT: dry, warm Results Laboratory Results: 04/19/17 05:48 04/19/17 05:48 04/19/17 04/19/17 05:48 05:48 WBC 24.3 H RBC 4.95 Hgb 11.1 L Hct 35.7 L MCV 72 L MCH 22.5 L MCHC 31.2 L RDW 16.9 H Plt Count 227 Seg Neutrophils % Not Reportable Lymphocytes % Not Reportable Monocytes % Not Reportable Eosinophils % Not Reportable Basophils % Not Reportable Absolute Neutrophils Not Reportable Absolute Lymphocytes Not Reportable Absolute Monocytes Not Reportable Absolute Eosinophils Not Reportable Absolute Basophils Not Reportable Sodium 135.9 L Potassium 4.5 Chloride 97 L Carbon Dioxide 32 H Anion Gap 7 BUN 24 H Creatinine 0.93 Est GFR ( Amer) > 60 Est GFR (Non-Af Amer) > 60 Glucose 94 Calcium 8.8 Impressions: Chest X-Ray 04/10/17 16:42 IMPRESSION: NO SIGNIFICANT RADIOGRAPHIC FINDING IN THE CHEST. Chest/Abdomen CTA 04/16/17 00:00 IMPRESSION: 1. No pulmonary embolus. 2. Mild dependent subsegmental atelectasis with trace pleural fluid has developed. Modified Barium Swallow 04/17/17 00:00 IMPRESSION: NO EVIDENCE OF PENETRATION OR ASPIRATION.PLEASE SEE SPEECH PATHOLOGIST REPORT FOR OTHER FINDINGS AND RECOMMENDATIONS. Esophagus X-Ray 04/17/17 12:32 IMPRESSION: SMALL HIATAL HERNIA. OTHERWISE UNREMARKABLE STUDY. Assessment & Plan - Diagnosis (1) Asthma exacerbation Is this a current diagnosis for this admission?: YesPlan: Improving but significant wheezes persist (2) GERD (gastroesophageal reflux disease) Is this a current diagnosis for this admission?: Yes (3) Leukocytosis, unspecified Qualifiers: Leukocytosis type: leukemoid reaction Qualified Code(s): D72.823 - Leukemoid reaction Is this a current diagnosis for this admission?: YesPlan: First day WBC has began to decline (4) Morbid obesity Is this a current diagnosis for this admission?: Yes
[2017-04-19] MEDS: OXYCODONE-ACETAMINOPHEN 5-325 MG TABLET PO PRN (14:01)
[2017-04-19 14:09] LABS: PATH REVIEW PATHOLOGIST REVIEWED
[2017-04-19] MEDS: CETIRIZINE 5 MG TABLET PO SCH (17:41)
[2017-04-19] MEDS: MONTELUKAST SODIUM 10 MG TABLET PO SCH (21:45)
[2017-04-20] MEDS: HEPARIN SOD (PORCINE) 5,000 UNIT/ML 1 ML SYRINGE SUBCUT SCH ×2 (05:55→13:53)
[2017-04-20 06:52] LABS: HEMATOCRIT 35.4 % (36.0-47.0); HEMOGLOBIN 11.4 g/dL (12.0-15.5); HGB HCT DIFFERENCE -1.2; MEAN CORPUSCULAR HEMOGLOBIN 23.2 pg (27.0-33.4); MEAN CORPUSCULAR HGB CONC 32.2 g/dL (32.0-36.0); MEAN CORPUSCULAR VOLUME 72 fl (80-97); RED BLOOD COUNT 4.91 10^6/uL (3.72-5.28); RED CELL DISTRIBUTION WIDTH 16.7 % (11.5-14.0); WHITE BLOOD COUNT 22.7 10^3/uL (4.0-10.5)
[2017-04-20 07:06] LABS: BAND NEUTROPHILS % (MANUAL) 1 % (3-5); BASOPHILS % (MANUAL) 0 % (0-2); EOSINOPHILS % (MANUAL) 3 % (0-6); LYMPHOCYTES % (MANUAL) 26 % (13-45); MICROCYTOSIS 1+; POLYCHROMASIA SLIGHT; TOTAL CELLS COUNTED 100; TOXIC GRANULATION SLIGHT; TOXIC VACUOLATION PRESENT
[2017-04-20 07:07] LABS: ANISOCYTOSIS 1+; HYPOCHROMASIA 1+; SCHISTOCYTES SLIGHT; TARGET CELLS SLIGHT
[2017-04-20 07:08] LABS: NUCLEATED RED BLOOD CELLS 0 /100 WBC (0)
[2017-04-20] MEDS: BUDESONIDE NEB 0.5 MG/2 ML AMPUL NEB SCH (07:56)
[2017-04-20] MEDS: IPRATROPIUM/ALBUTEROL 0.5-2.5 MG/3 ML AMPUL NEB SCH (07:56)
[2017-04-20] MEDS: LANSOPRAZOLE 30 MG TAB.RAP.DR PO SCH (08:12)
[2017-04-20] MEDS: ERYTHROMYCIN BASE 250 MG TABLET PO SCH ×2 (08:12→10:49)
[2017-04-20] MEDS: NYSTATIN/DEXAMETH/DIPHEN SUSP 120 ML PO SCH ×2 (10:49→13:55)
[2017-04-20] MEDS: SENNOSIDES/DOCUSATE 8.6-50 MG 1 EACH TABLET PO SCH (10:49)
[2017-04-20] MEDS: FLUTICASONE NASAL SPRAY 50 MCG/SPRY 120 SPRAY/16 GM NASL SCH (10:49)
[2017-04-20] MEDS: HYDROCODONE BIT/HOMATROPINE 5-1.5 MG TABLET PO PRN (11:19)
--- NOTE | 2017-04-20 15:36 | PDOC DISCHARGE SUMMARY ---
General - Admit/Disc Date/PCP Admission Date/Primary Care Provider: 04/10/17 23:33. PCM: Dr. Dennis Discharge Date: 04/20/17 - Discharge Diagnosis (1) Asthma exacerbation Is this a current diagnosis for this admission?: Yes (2) Respiratory distress Is this a current diagnosis for this admission?: Yes (3) GERD (gastroesophageal reflux disease) Is this a current diagnosis for this admission?: Yes (4) Morbid obesity Is this a current diagnosis for this admission?: Yes (5) Acute bacterial bronchitis Is this a current diagnosis for this admission?: Yes (6) Leukocytosis, unspecified Is this a current diagnosis for this admission?: Yes (7) Reactive airway disease with acute exacerbation Is this a current diagnosis for this admission?: Yes - Additional Information Resuscitation Status: Full Code Discharge Diet: As Tolerated Discharge Activity: Energy Conservation Home Medications: Oxycodone HCl/Acetaminophen [Percocet 10-325 mg Tablet] 1 tab PO Q6HP PRN Budesonide [Pulmicort Neb 0.5 mg/2 ml Ampul] 0.5 mg NEB RTQ12 #60 ampul.neb 04/01 Cetirizine HCl [Zyrtec 5 mg Tablet] 5 mg PO QPM #30 tablet 04/20/17 Erythromycin Base [Erythrocin Base 250 mg Tablet] 250 mg PO AC #14 tablet Fluticasone Propionate [Flonase Nasal Bethel 50 Mcg/Bethel 16 gm] 2 spray NASL Q12 #1 spray.pump 04/20/17 Hydrocodone Bit/Homatropine [Hycodan 5-1.5 mg Tablet] 1 tab PO Q6HP PRN #30 tablet 04/20/17 Ipratropium/Albuterol Sulfate [Duoneb 3 ml Ampul] 3 ml NEB RTQ8 PRN #30 vial.neb 04/20/17 Lansoprazole [Prevacid 30 mg Odt Tablet] 30 mg PO BIDACBS #60 tab.rap. Montelukast Sodium [Singulair 10 mg Tablet] 10 mg PO QHS #30 tablet 04/20/17 Sennosides/Docusate 8.6-50 mg [Senna Plus Tablet] 2 each PO BID #30 tablet 04/20 History of Present Illness Patient complains of: MODE U MAURO is a 36 year old female with a past medical history of morbid obesity and bipolar who was in her usual state of health until approximately 2 days prior to presentation having shortness of breath, nonproductive cough and wheeze prompting to seek evaluation emergency room where she receives Solu-Medrol albuterol and Atrovent, workup is unremarkable with exception to leukocytosis. She remains markedly short of breath requiring BiPAP, denies chest pain nausea vomiting or diaphoresis. She is very to the hospitalist for admission History of Present Illness: MODE MAURO is a 36 year old female Hospital Course Hospital Course: This has been a very difficult case. her bronchospasm is refractory to all usual treatments and simply will not resolve. I even tried a change to IV decadron, schedule duonebs and continue prn nebs, pulmicort and upper airway antihistamines and decongestants without success. MBS didn't reveal any abnl's. working diagnosis but with worsening monocytosis now feel more strongly this is viral in nature. failed to progress and still not back to baseline; dis continued doxycycline and chgd to levaquin but made no difference ; continue systemic steroids. added antitussive and decreased atrovent use as it may have been drying out her secretions making them more difficult to clear. dr brooks has seen in consultation and added upper airway and allergy treatment. I agree with evaluation of her swallow/esophageal dysmotility to eval risk for chronic micro aspiration particularly at night. screen neg for influenza, adenovirus abs have been negative. Corticosteroids were discontinued the patient was followed in the hospital for an additional 48 hours. She has slowly showed improvement. She has been walking without the need for oxygen. She did shower yesterday. Her mother will be staying with her at home. I told her that I want someone with her 24 7. She will continue bronchodilators, erythromycin, inhaled corticosteroids, Singulair, cetirizine and cough syrup at discharge. She has been instructed on the use of a peak flow meter. She will need close follow-up with her primary care provider and powder coater. I do suspect that the patient has a component of laryngospasm and vocal cord dysfunction. I believe that the triggering events have been uncontrolled reflux and asthma. She will also be discharged on a twice daily proton pump inhibitor. Physical Exam Vital Signs: Temp Pulse Resp BP Pulse Ox 97.7 F 91 15 104/70 97 04/20/17 11:26 04/20/17 14:00 04/20/17 11:26 04/20/17 11:26 04/20/17 11:26 Intake & Output 04/19/17 04/20/17 04/21/17 06:59 06:59 06:59 Intake Total 1350 900 Output Total 850 Balance 1350 50 Weight 114.7 kg 116.6 kg General appearance: PRESENT: no acute distress, cooperative Eye exam: PRESENT: EOMI Mouth exam: PRESENT: neck supple Neck exam: PRESENT: full ROM Respiratory exam: PRESENT: wheezes Cardiovascular exam: PRESENT: RRR GI/Abdominal exam: PRESENT: normal bowel sounds, soft Neurological exam: PRESENT: alert, awake Psychiatric exam: PRESENT: appropriate affect Results Laboratory Results: 04/20/17 05:59 04/19/17 05:48 04/20/17 05:59 WBC 22.7 H RBC 4.91 Hgb 11.4 L Hct 35.4 L MCV 72 L MCH 23.2 L MCHC 32.2 RDW 16.7 H Plt Count 227 Seg Neutrophils % Not Reportable Lymphocytes % Not Reportable Monocytes % Not Reportable Eosinophils % Not Reportable Basophils % Not Reportable Absolute Neutrophils Not Reportable Absolute Lymphocytes Not Reportable Absolute Monocytes Not Reportable Absolute Eosinophils Not Reportable Absolute Basophils Not Reportable Impressions: Chest X-Ray 04/10/17 16:42 IMPRESSION: NO SIGNIFICANT RADIOGRAPHIC FINDING IN THE CHEST. Chest/Abdomen CTA 04/16/17 00:00 IMPRESSION: 1. No pulmonary embolus. 2. Mild dependent subsegmental atelectasis with trace pleural fluid has developed. Modified Barium Swallow 04/17/17 00:00 IMPRESSION: NO EVIDENCE OF PENETRATION OR ASPIRATION.PLEASE SEE SPEECH PATHOLOGIST REPORT FOR OTHER FINDINGS AND RECOMMENDATIONS. Esophagus X-Ray 04/17/17 12:32 IMPRESSION: SMALL HIATAL HERNIA. OTHERWISE UNREMARKABLE STUDY. Plan Discharge Plan: We will be discharged on inhaled steroids and inhaled bronchodilator later via nebulizer. She will continue cough suppressive therapy. She will continue antihistamine therapy and nasal steroid therapy. She will continue Singulair. She will continue erythromycin base. She will need close follow-up with her primary care technician and Dr. Brooks, her powder coater. Peak flow teaching has been provided. Time Spent: Greater than 30 Minutes
[2017-04-20 15:42] VITALS: BP 109/71
--- NOTE | 2017-04-20 16:45 | PDOC PROGRESS REPORT ---
Subjective Progress Note for:: 04/20/17 Subjective:: I am feeling better Physical Exam Vital Signs: Temp Pulse Resp BP Pulse Ox 97.5 F 91 18 109/71 97 04/20/17 15:41 04/20/17 15:41 04/20/17 15:41 04/20/17 15:41 04/20/17 15:41 Intake & Output 04/19/17 04/20/17 04/21/17 06:59 06:59 06:59 Intake Total 1350 900 Output Total 850 Balance 1350 50 Weight 114.7 kg 116.6 kg General appearance: PRESENT: no acute distress, cooperative, disheveled, morbidly obese, well-developed Head exam: PRESENT: atraumatic, normocephalic Eye exam: PRESENT: conjunctiva pale, EOMI Mouth exam: PRESENT: moist, neck supple, tongue midline Neck exam: ABSENT: carotid bruit, JVD, lymphadenopathy, thyromegaly Respiratory exam: PRESENT: prolonged expiratory phas, rhonchi, symmetrical, unlabored Cardiovascular exam: PRESENT: RRR, +S1, +S2 Pulses: PRESENT: normal radial pulses GI/Abdominal exam: PRESENT: normal bowel sounds, soft. ABSENT: distended, guarding, mass, organolmegaly, rebound, tenderness Rectal exam: PRESENT: deferred Musculoskeletal exam: PRESENT: normal inspection Neurological exam: PRESENT: alert, awake Psychiatric exam: PRESENT: normal mood Skin exam: PRESENT: dry, warm Results Laboratory Results: 04/20/17 05:59 04/19/17 05:48 04/20/17 05:59 WBC 22.7 H RBC 4.91 Hgb 11.4 L Hct 35.4 L MCV 72 L MCH 23.2 L MCHC 32.2 RDW 16.7 H Plt Count 227 Seg Neutrophils % Not Reportable Lymphocytes % Not Reportable Monocytes % Not Reportable Eosinophils % Not Reportable Basophils % Not Reportable Absolute Neutrophils Not Reportable Absolute Lymphocytes Not Reportable Absolute Monocytes Not Reportable Absolute Eosinophils Not Reportable Absolute Basophils Not Reportable Impressions: Chest X-Ray 04/10/17 16:42 IMPRESSION: NO SIGNIFICANT RADIOGRAPHIC FINDING IN THE CHEST. Chest/Abdomen CTA 04/16/17 00:00 IMPRESSION: 1. No pulmonary embolus. 2. Mild dependent subsegmental atelectasis with trace pleural fluid has developed. Modified Barium Swallow 04/17/17 00:00 IMPRESSION: NO EVIDENCE OF PENETRATION OR ASPIRATION.PLEASE SEE SPEECH PATHOLOGIST REPORT FOR OTHER FINDINGS AND RECOMMENDATIONS. Esophagus X-Ray 04/17/17 12:32 IMPRESSION: SMALL HIATAL HERNIA. OTHERWISE UNREMARKABLE STUDY. Assessment & Plan - Diagnosis (1) Asthma exacerbation Is this a current diagnosis for this admission?: YesPlan: Improving (2) GERD (gastroesophageal reflux disease) Is this a current diagnosis for this admission?: YesPlan: reverse Trendelenberg (3) Leukocytosis, unspecified Qualifiers: Leukocytosis type: leukemoid reaction Qualified Code(s): D72.823 - Leukemoid reaction Is this a current diagnosis for this admission?: YesPlan: Continue to trend downward (4) Morbid obesity Is this a current diagnosis for this admission?: Yes
== END 2017-04-20 16:02 | disposition home or self-care (01) | DRG 202 ==
LOC: ER 15:31 → EH 23:33 → 5 04-11 02:06
PROVIDERS: ADMIT Internal Medicine; ATTEND Internal Medicine
DX: J45.901 Unspecified asthma with (acute) exacerbation (principal); Z68.42 Body mass index [BMI] 45.0-49.9, adult; F11.20 Opioid dependence, uncomplicated; J20.9 Acute bronchitis, unspecified; E03.9 Hypothyroidism, unspecified; F31.9 Bipolar disorder, unspecified; K21.9 Gastro-esophageal reflux disease without esophagitis; D72.823 Leukemoid reaction; E66.01 Morbid (severe) obesity due to excess calories; Z87.891 Personal history of nicotine dependence
CPT/HCPCS: 36415; 36600; 71020; 71275; 74220; 74230; 80048; 80053; 80307; 81001; 82785; 82803; 84443; 85025; 85610; 85652; 86603; 87804; 93005; 93010; 93306; 94640; 94660; 94667; 96372; 99291; J1100; J1644; J1885; J3105; J3475; J3490; J7512; J7620

== ENCOUNTER 2018-01-28 18:26 | Emergency (ER) | payer MEDICAID ==
[2018-01-28 18:30] VITALS: BP 127/63
[2018-01-28] MEDS ORDERED: HYDROCODONE/ACETAMINOPHEN 5-325 MG TABLET PO ONE (19:37)
--- NOTE | 2018-01-28 19:38 | RADIOLOGY REPORT (SQ) ---
EXAM DESCRIPTION: KNEE RIGHT 4 VIEWS COMPLETED DATE/TIME: 01/28/2018 7:30 pm REASON FOR STUDY: rt knee pain s/p injury COMPARISON: None. NUMBER OF VIEWS: Four views. TECHNIQUE: AP, lateral, and both oblique radiographic images acquired of the right knee. LIMITATIONS: None. FINDINGS: MINERALIZATION: Normal. BONES: No acute fracture or dislocation. No worrisome bone lesions. JOINT: Small joint effusion. SOFT TISSUES: No soft tissue swelling. No radio-opaque foreign body. OTHER: No other significant finding. IMPRESSION: No acute fracture. Small joint effusion. TECHNICAL DOCUMENTATION: JOB ID: [id number] [employer]- All Rights Reserved Reading location - IP/workstation name: [email or web address]
--- NOTE | 2018-01-28 20:01 | ER Document Report ---
ED General - General Chief Complaint: Knee Pain Stated Complaint: KNEE PAIN Time Seen by Provider: 01/28/18 19:25 TRAVEL OUTSIDE OF THE [place] IN LAST 30 DAYS: No - HPI Notes: 37-year-old female presents with right knee injury and pain. Patient was moving out of her house when she fell through the porch with her right knee. Her body did not follow through better knee was dangling. Complains of severe diffuse right knee pain. Sharp and severe nonradiating. No current numbness or tingling. No other injury. Sudden onset. No other modifying factors, no other associated symptoms, no other provocative or palliative factors. - Related Data Allergies/Adverse Reactions: No Known Allergies Allergy (Verified 04/10/17 15:55) Past Medical History - Social History Smoking Status: Never Smoker Drug Abuse: None Family History: DM, Hyperlipidemia, Hypertension, Malignancy, Thyroid Disfunction Patient has suicidal ideation: No Patient has homicidal ideation: No - Past Medical History Cardiac Medical History: Denies: Hx Atrial Fibrillation, Hx Congestive Heart Failure, Hx Coronary Artery Disease, Hx DVT, Hx Heart Attack, Hx Hypercholesterolemia, Hx Hypertension, Hx Peripheral Vascular Disease, Hx Pulmonary Embolism, Hx Heart Murmur Pulmonary Medical History: Denies: Hx Asthma, Hx Bronchitis, Hx COPD, Hx Pneumonia, Hx Intubation, Hx Respiratory Failure, Hx Sleep Apnea, Hx Tuberculosis Neurological Medical History: Denies: Hx Migraine, Hx Seizures Endocrine Medical History: Reports: Hx Hypothyroidism. Denies: Hx Diabetes Mellitus Type 1, Hx Diabetes Mellitus Type 2 Renal/ Medical History: Denies: Hx End Stage Renal Disease, Hx Peritoneal Dialysis Malignancy Medical History: Denies: Hx Bone Cancer, Hx Brain Cancer, Hx Breast Cancer, Hx Cervical Cancer, Hx Colorectal Cancer, Hx Leukemia, Hx Liver Cancer, Hx Lung Cancer, Hx Lymphoma, Hx Ovarian Cancer, Hx Pancreatic Cancer, Hx Renal ( Kidney) Cancer, Hx Skin Cancer GI Medical History: Reports: Hx Gastritis, Hx Gastroesophageal Reflux Disease Musculoskeltal Medical History: Reports Hx Arthritis, Reports Hx Musculoskeletal Deformity, Reports Hx Musculoskeletal Trauma Psychiatric Medical History: Reports: Hx Anxiety, Hx Bipolar Disorder, Hx Depression, Hx Schizophrenia Past Surgical History: Reports: Hx Hysterectomy - Immunizations Immunizations up to date: No Hx Diphtheria, Pertussis, Tetanus Vaccination: Yes Review of Systems - Review of Systems Notes: Review of systems as in history of present illness, otherwise no significant headache, chest pain, abdominal pain. Physical Exam - Vital signs Vitals: Temp Pulse Resp BP Pulse Ox 98.4 F 92 14 127/63 H 99 01/28/18 18:27 01/28/18 18:27 01/28/18 18:27 01/28/18 18:01/28/18 18:27 - Notes Notes: General: Well-developed, well-nourished HEENT: Normocephalic. No external trauma noted. No yusuf sign, no hemotympanum. Mucosa is moist. No intraoral trauma. Neck: Midline trachea, no JVD. No midline cervical spine tenderness. No step- off or deformity. Chest: Normal excursion, no accessory muscle use. No gross trauma. Abdomen: Soft, nondistended. Nontender. No bruising. Pelvis: Stable. Vascular: Strong and symmetric upper and lower extremity pulses. Well-perfused extremities. Motor: Normal tone and power. Neurologic: Alert, nonfocal. Sensation symmetric and intact. Skin: No significant lacerations or purpura. Extremities: No cyanosis. Right knee has diffuse tenderness especially anterolaterally. There is no gross ligamentous laxity. No anterior posterior drawer sign. Distally feet are warm well perfused, normal pedal pulses, normal popliteal pulses that are symmetric. Sensation is intact and symmetric. Normal capillary refill. Course - Re-evaluation Re-evalutation: 01/28/18 20:22 37-year-old female knee injury, consider fracture versus internal derangement. Will obtain plain films and reevaluate, treat pain. Plain films show no evidence of fracture, effusion is noted. She is placed in knee immobilizer for comfort and stabilization, given crutches, remain nonweightbearing and follow-up with her primary care doctor or orthopedic surgery as needed. She is given a prescription for analgesics. - Vital Signs Vital signs: Temp Pulse Resp BP Pulse Ox 98.4 F 92 14 127/63 H 99 01/28/18 18:27 01/28/18 18:27 01/28/18 18:27 01/28/18 18:27 01/28/18 18:27 Discharge - Discharge Clinical Impression: Left knee sprain Qualifiers: Encounter type: initial encounter Involved ligament of knee: unspecified collateral ligament Qualified Code(s): S83.402A - Sprain of unspecified collateral ligament of left knee, initial encounter Condition: Good Disposition: HOME, SELF-CARE Instructions: Use of Crutches ([facility]), Suspected Internal Knee Injury ([facility]), Knee Immobilizing Splint ([facility]) Prescriptions: Tramadol HCl 50 mg PO Q6 #10 tablet Referrals: TREVIN CORRALES DO [ACTIVE STAFF] - Follow up as needed
== END 2018-01-28 20:22 | disposition home or self-care (01) ==
LOC: ER 18:26
DX: S83.402A Sprain of unspecified collateral ligament of left knee, initial encounter (principal); M25.561 Pain in right knee; W17.2XXA Fall into hole, initial encounter
CPT/HCPCS: 99283; 73564; L1830

== ENCOUNTER 2018-06-29 11:30 | Emergency (ER) | payer MEDICAID ==
--- NOTE | 2018-06-29 11:33 | ER Document Report ---
ED Medical Screen (RME) - General Chief Complaint: Vaginal Bleeding Stated Complaint: VAGINAL BLEEDING Time Seen by Provider: 06/29/18 11:32 Mode of Arrival: Ambulatory Information source: Patient Notes: 37-year-old female presents to ED for pelvic pain and vaginal bleeding. She states she had a partial hysterectomy years ago. States the bleeding is intermittent comes and goes for the last 3 days. She states she is also having pelvic pain and is concerned about the bleeding with pelvic pain. She is alert and oriented respirations regular and unlabored speaking in full sentences and walking with a even steady gait. I have greeted and performed a rapid initial assessment of this patient. A comprehensive ED assessment and evaluation of the patient, analysis of test results and completion of medical decision making process will be conducted by an additional ED providers. TRAVEL OUTSIDE OF THE [place] IN LAST 30 DAYS: No - Related Data Allergies/Adverse Reactions: No Known Allergies Allergy (Verified 04/10/17 15:55) Past Medical History - Past Medical History Cardiac Medical History: Denies: Hx Atrial Fibrillation, Hx Congestive Heart Failure, Hx Coronary Artery Disease, Hx DVT, Hx Heart Attack, Hx Hypercholesterolemia, Hx Hypertension, Hx Peripheral Vascular Disease, Hx Pulmonary Embolism, Hx Heart Murmur Pulmonary Medical History: Denies: Hx Asthma, Hx Bronchitis, Hx COPD, Hx Pneumonia, Hx Intubation, Hx Respiratory Failure, Hx Sleep Apnea, Hx Tuberculosis Neurological Medical History: Denies: Hx Migraine, Hx Seizures Endocrine Medical History: Reports: Hx Hypothyroidism. Denies: Hx Diabetes Mellitus Type 1, Hx Diabetes Mellitus Type 2 Renal/ Medical History: Denies: Hx End Stage Renal Disease, Hx Peritoneal Dialysis Malignancy Medical History: Denies: Hx Bone Cancer, Hx Brain Cancer, Hx Breast Cancer, Hx Cervical Cancer, Hx Colorectal Cancer, Hx Leukemia, Hx Liver Cancer, Hx Lung Cancer, Hx Lymphoma, Hx Ovarian Cancer, Hx Pancreatic Cancer, Hx Renal ( Kidney) Cancer, Hx Skin Cancer GI Medical History: Reports: Hx Gastritis, Hx Gastroesophageal Reflux Disease Musculoskeltal Medical History: Reports Hx Arthritis, Reports Hx Musculoskeletal Deformity, Reports Hx Musculoskeletal Trauma Psychiatric Medical History: Reports: Hx Anxiety, Hx Bipolar Disorder, Hx Depression, Hx Schizophrenia Past Surgical History: Reports: Hx Hysterectomy - Immunizations Immunizations up to date: No Hx Diphtheria, Pertussis, Tetanus Vaccination: Yes Doctor's Discharge - Discharge Referrals: KEATON LEE MD [Primary Care Provider] - Follow up as needed
[2018-06-29 12:33] LABS: ABSOLUTE BASOPHILS # (AUTO) 0.1 10^3/uL (0.0-0.2); ABSOLUTE EOSINOPHILS # (AUTO) 0.2 10^3/uL (0.0-0.6); ABSOLUTE LYMPHOCYTES (AUTO) 3.9 10^3/uL (0.5-4.7); ABSOLUTE MONOCYTES (AUTO) 0.7 10^3/uL (0.1-1.4); ABSOLUTE NEUT (AUTO) 7.2 10^3/uL (1.7-8.2); BASOPHILS % (AUTO) 0.4 % (0-2); EOSINOPHILS % (AUTO) 1.4 % (0-6); HEMATOCRIT 40.6 % (36.0-47.0); HEMOGLOBIN 13.2 g/dL (12.0-15.5); LYMPHOCYTES % (AUTO) 32.8 % (13-45); MEAN CORPUSCULAR HEMOGLOBIN 23.3 pg (27.0-33.4); MEAN CORPUSCULAR HGB CONC 32.6 g/dL (32.0-36.0); MEAN CORPUSCULAR VOLUME 72 fl (80-97); MONOCYTES % (AUTO) 5.6 % (3-13); PLATELET COUNT 275 10^3/uL (150-450); RED BLOOD COUNT 5.67 10^6/uL (3.72-5.28); RED CELL DISTRIBUTION WIDTH 16.8 % (11.5-14.0); SEGMENTED NEUTROPHILS % (AUTO) 59.8 % (42-78); TOTAL CELLS COUNTED % (AUTO) 100 %
[2018-06-29 12:41] LABS: ALANINE AMINOTRANSFERASE 27 U/L (9-52); ALBUMIN 4.2 g/dL (3.5-5.0); ALKALINE PHOSPHATASE 78 U/L (38-126); ANION GAP 9 (5-19); ASPARTATE AMINO TRANSFERASE 22 U/L (14-36); BILIRUBIN,DIRECT 0.2 mg/dL (0.0-0.4); BILIRUBIN,TOTAL 0.8 mg/dL (0.2-1.3); BLOOD UREA NITROGEN 11 mg/dL (7-20); CALCIUM 9.5 mg/dL (8.4-10.2); CARBON DIOXIDE 27 mmol/L (22-30); CHLORIDE 103 mmol/L (98-107); GLUCOSE 84 mg/dL (75-110); TOTAL PROTEIN 8.1 g/dL (6.3-8.2)
--- NOTE | 2018-06-29 12:57 | ER Document Report ---
ED GI/ - General Chief Complaint: Vaginal Bleeding Stated Complaint: VAGINAL BLEEDING Time Seen by Provider: 06/29/18 11:32 Mode of Arrival: Ambulatory Notes: Patient is a 37-year-old female who presents with chief complaint of low back pain, right lower quadrant pain that started 2 days ago. Patient reports associated nausea without vomiting or diarrhea. Patient reports that she last ate yesterday at 4 PM and has no appetite. Patient also reports intermittent abnormal vaginal bleeding which she states has now resolved. TRAVEL OUTSIDE OF THE [place] IN LAST 30 DAYS: No - Related Data Allergies/Adverse Reactions: No Known Allergies Allergy (Verified 04/10/17 15:55) Past Medical History - General Information source: Patient Last Menstrual Period: hysterectomy - Social History Smoking Status: Never Smoker Chew tobacco use (# tins/day): No Frequency of alcohol use: None Drug Abuse: None Family History: DM, Hyperlipidemia, Hypertension, Malignancy, Thyroid Disfunction Patient has suicidal ideation: No Patient has homicidal ideation: No - Past Medical History Cardiac Medical History: Denies: Hx Atrial Fibrillation, Hx Congestive Heart Failure, Hx Coronary Artery Disease, Hx DVT, Hx Heart Attack, Hx Hypercholesterolemia, Hx Hypertension, Hx Peripheral Vascular Disease, Hx Pulmonary Embolism, Hx Heart Murmur Pulmonary Medical History: Denies: Hx Asthma, Hx Bronchitis, Hx COPD, Hx Pneumonia, Hx Intubation, Hx Respiratory Failure, Hx Sleep Apnea, Hx Tuberculosis Neurological Medical History: Denies: Hx Migraine, Hx Seizures Endocrine Medical History: Reports: Hx Hypothyroidism. Denies: Hx Diabetes Mellitus Type 1, Hx Diabetes Mellitus Type 2 Renal/ Medical History: Denies: Hx End Stage Renal Disease, Hx Peritoneal Dialysis Malignancy Medical History: Denies: Hx Bone Cancer, Hx Brain Cancer, Hx Breast Cancer, Hx Cervical Cancer, Hx Colorectal Cancer, Hx Leukemia, Hx Liver Cancer, Hx Lung Cancer, Hx Lymphoma, Hx Ovarian Cancer, Hx Pancreatic Cancer, Hx Renal ( Kidney) Cancer, Hx Skin Cancer GI Medical History: Reports: Hx Gastritis, Hx Gastroesophageal Reflux Disease Musculoskeletal Medical History: Reports Hx Arthritis, Reports Hx Musculoskeletal Deformity, Reports Hx Musculoskeletal Trauma Psychiatric Medical History: Reports: Hx Anxiety, Hx Bipolar Disorder, Hx Depression, Hx Schizophrenia Past Surgical History: Reports: Hx Hysterectomy - Immunizations Immunizations up to date: No Hx Diphtheria, Pertussis, Tetanus Vaccination: Yes Physical Exam - Vital signs Vitals: Temp Pulse Resp BP Pulse Ox 98.2 F 99 16 124/91 H 99 06/29/18 11:37 06/29/18 11:37 06/29/18 11:37 06/29/18 11:37 06/29/18 11:37 - Notes Notes: PHYSICAL EXAMINATION: GENERAL: Well-appearing, well-nourished and in no acute distress. HEAD: Atraumatic, normocephalic. EYES: Pupils equal round and reactive to light, extraocular movements intact, conjunctiva are normal. ENT: Nares patent, oropharynx clear without exudates. Moist mucous membranes. NECK: Normal range of motion, supple without lymphadenopathy LUNGS: Breath sounds clear to auscultation bilaterally and equal. No wheezes rales or rhonchi. HEART: Regular rate and rhythm without murmurs ABDOMEN: Soft, nondistended abdomen. No guarding, no rebound. No masses appreciated. Tenderness to palpation around the periumbilical region as well as right lower quadrant. Female : No CVA tenderness. Musculoskeletal: Normal range of motion, no pitting or edema. No cyanosis. NEUROLOGICAL: Cranial nerves grossly intact. Normal speech, normal gait. Normal sensory, motor exams PSYCH: Normal mood, normal affect. SKIN: Warm, Dry, normal turgor, no rashes or lesions noted. Course - Re-evaluation Re-evalutation: Mild leukocytosis noted on CBC with no shift. Hemoglobin and hematocrit are normal. comprehensive metabolic panel is unremarkable. Urinalysis is normal. CT of the abdomen and pelvis with no abnormal findings. Patient's vital signs are stable and patient does not have any active vaginal bleeding. Patient will be discharged home in stable condition with ED return precautions. Patient to follow-up with her [facility] regarding her complaint of intermittent vaginal bleeding. - Vital Signs Vital signs: Temp Pulse Resp BP Pulse Ox 97.7 F 90 16 112/92 H 98 06/29/18 15:47 06/29/18 15:47 06/29/18 15:47 06/29/18 15:47 06/29/18 15:47 - Laboratory Result Diagrams: 06/29/18 12:16 06/29/18 12:16 Laboratory results interpreted by me: 06/29/18 06/29/18 12:16 12:16 WBC 12.0 H RBC 5.67 H MCV 72 L MCH 23.3 L RDW 16.8 H Urine Urobilinogen 2.0 H Discharge - Discharge Clinical Impression: Vaginal bleeding Abdominal pain Qualifiers: Abdominal location: right lower quadrant Qualified Code(s): R10.31 - Right lower quadrant pain Condition: Stable Disposition: HOME, SELF-CARE Additional Instructions: Vaginal Bleeding You are having an episode of abnormal bleeding. Causes of abnormal vaginal bleeding can include miscarriage or tubal , tumors such as cancer or benign fibroids, medication effects, or hormone imbalance. Testing can eliminate unsuspected , tumors, or infection as a cause. "Dysfunctional uterine bleeding" is due to hormone imbalance, and is especially common at times when the normal cycle is disturbed -- whether by recent , use of control pills or hormones, or impending menopause. If the bleeding is innocent, most commonly a short course of hormones is given to restore the uterus to normal. Sometimes, the normal menstrual cycle corrects itself naturally. Sometimes , brief hormone therapy, or even a D&C is required. Your physician will advise you. Treatment for anemia may be required if bleeding is severe. You should rest and avoid intercourse until the bleeding is controlled. Call the doctor or return for re-examination if you feel faint, have increasing pain, or have a major increase in the amount of bleeding. Abdominal Pain There are many causes of abdominal pain. Pain can mean a serious problem requiring surgery (such as appendicitis). It can also be an innocent problem that goes away on its own (such as a viral infection). Often, time must pass to determine the cause of pain. The physician does not feel that hospitalization is necessary, at present. Things may change within the next 24 hours. Call the doctor or come back for re- examination if any problems occur, such as: (1) Pain that becomes more severe, steady, or becomes concentrated in one specific area. Also, pain that is more severe with movement or coughing. (2) Vomiting that persists or becomes more frequent. (3) Blood in the vomitus, urine, or bowel movements. Blood in the stool may have a tarry or black appearance. (4) Shaking chills or fever greater than 100 degrees F. (5) The abdomen becomes more distended or swollen. (6) Bowel movements cease. (7) Failure to improve as expected. Please take pain and nausea medications as prescribed. It is important that you follow-up with your [facility] regarding the vaginal bleeding. Please return to the emergency department if you start bleeding through more than 1 pad per hour or develop worsening abdominal pain. Referrals: KEATON LEE MD [Primary Care Provider] - Follow up as needed
[2018-06-29 13:31] LABS: APPEARANCE,URINE CLOUDY; BILIRUBIN,URINE NEGATIVE (NEGATIVE); COLOR,URINE YELLOW; GLUCOSE, URINE NEGATIVE (NEGATIVE); KETONES,URINE NEGATIVE (NEGATIVE); LEUKOCYTE ESTERASE,URINE NEGATIVE (NEGATIVE); NITRITE,URINE NEGATIVE (NEGATIVE); PROTEIN,URINE NEGATIVE (NEGATIVE); URINE SPECIFIC GRAVITY 1.024
[2018-06-29] MEDS ORDERED: MORPHINE SULFATE 10 MG/ML INJ IV ONE (13:36)
--- NOTE | 2018-06-29 14:25 | RADIOLOGY REPORT (SQ) ---
EXAM DESCRIPTION: CT ABD/PELVIS WITH IV ONLY COMPLETED DATE/TIME: 06/29/2018 1:46 pm REASON FOR STUDY: RLQ pain COMPARISON: CT chest 04/16/2017 CT abdomen pelvis 01/16/2010 TECHNIQUE: CT scan of the abdomen and pelvis performed using helical scanning technique with dynamic intravenous contrast injection. No oral contrast. Images reviewed with lung, soft tissue, and bone windows. Reconstructed coronal and sagittal MPR images reviewed. Delayed images for evaluation of the urinary system also acquired. All images stored on PACS. All CT scanners at this facility use dose modulation, iterative reconstruction, and/or weight based d osing when appropriate to reduce radiation dose to as low as reasonably achievable (ALARA). [facility]: Dose Right [facility]: CareDose [facility]: Dose Right [facility]: Teradose 4D [facility]: [place] CONTRAST TYPE AND DOSE: contrast/concentration: Isovue 350.00 mg/ml; Total Contrast Delivered: 100.0 ml; Total Saline Delivered: 72.0 ml RENAL FUNCTION: Creatinine 0.8 RADIATION DOSE: CT Rad equipment meets quality standard of care and radiation dose reduction techniq ues were employed. CTDIvol: 19.0 - 20.5 mGy. DLP: 2082 mGy-cm.. LIMITATIONS: None. FINDINGS: LOWER CHEST: No significant findings. No nodules or infiltrates. LIVER: Normal size. No masses. No dilated ducts. Diffuse low attenuation from fatty infiltration SPLEEN: Normal size. No focal lesions. PANCREAS: No masses. No significant calcifications. No adjacent inflammation or peripancreatic fluid collections. Pancreatic duct not dilated. GALLBLADDER: No identified stones by CT criteria. No inflammatory changes to suggest cholecystitis. ADRENAL GLANDS: No significant masses or asymmetry. RIGHT KIDNEY AND URETER: No solid masses. No significant calcifications. No hydronephrosis or hyd roureter. LEFT KIDNEY AND URETER: No solid masses. No significant calcifications. No hydronephrosis or hydr oureter. AORTA AND VESSELS: No aneurysm. No dissection. Renal arteries, SMA, celiac without stenosis. RETROPERITONEUM: No retroperitoneal adenopathy, hemorrhage or masses. BOWEL AND PERITONEAL CAVITY: No CT evidence of bowel obstruction or free intraperitoneal air or fluid . Moderate stool in the right colon. No masses or inflammatory changes. No free fluid or peritoneal masses. APPENDIX: Normal. PELVIS: No mass. No free fluid. Normal bladder. Normal size female pelvic organs ABDOMINAL WALL: No masses. No hernias. BONES: No significant or acute findings. OTHER: No other significant finding. IMPRESSION: NO SIGNIFICANT OR ACUTE FINDING IN THE ABDOMEN OR PELVIS ON CT SCAN WITH IV CONTRAST. TECHNICAL DOCUMENTATION: JOB ID: [id number] Quality ID # [id number]: Final reports with documentation of one or more dose reduction techniques (e.g., Au tomated exposure control, adjustment of the mA and/or kV according to patient size, use of iterative reconstruction technique) 2010 [employer] All Rights Reserved Reading location - IP/workstation name: [facility]
[2018-06-29] MEDS ORDERED: HYDROCODONE/ACETAMINOPHEN 5-325 MG (6 TAB/ER DISP) PO PRN (14:40)
[2018-06-29] MEDS ORDERED: ONDANSETRON ODT 4 MG TAB (6 TAB/ER DISP) PO PRN (14:40)
[2018-06-29] MEDS ORDERED: ONDANSETRON HCL INJ/PF 4 MG/2 ML SDV IV ONE (14:57)
[2018-06-29 15:48] VITALS: BP 112/92
== END 2018-06-29 15:47 | disposition home or self-care (01) ==
LOC: ER 11:30
DX: N93.9 Abnormal uterine and vaginal bleeding, unspecified (principal); M54.5 Low back pain; R10.31 Right lower quadrant pain; R11.0 Nausea; R63.0 Anorexia; Z90.710 Acquired absence of both cervix and uterus
CPT/HCPCS: 36415; 74177; 80053; 81001; 85025; 96374; 96375; 99284

== ENCOUNTER 2018-12-25 18:21 | Emergency (ER) | payer SELFPAY ==
[2018-12-25 18:28] VITALS: BP 134/79
[2018-12-25] MEDS ORDERED: ONDANSETRON HCL INJ/PF 4 MG/2 ML SDV IV ONE (18:53)
--- NOTE | 2018-12-25 19:01 | ER Document Report ---
ED Medical Screen (RME) - General Chief Complaint: Psych Problem Stated Complaint: PSYCH EVAL Time Seen by Provider: 12/25/18 18:50 Primary Care Provider: KEATON LEE MD [Primary Care Provider] - Follow up as needed Mode of Arrival: Ambulatory Information source: Patient, Friend, Outside Facility Records Notes: 38-year-old female with schizoaffective disorder presents with her behavioral health advocate after disclosing that she drank bleach, isopropyl alcohol and phentermine early this morning. She states she did that to burn the fat cells. Advocate reports that the patient is recently homeless, living in her car. She also states that while the patient was talking to her grandmother on the phone last week the grandmother . Patient is talking to herself but states that she is talking to her friend Bárbara. Patient is denying suicidal ideation and keeps stating that she just did it to burn her fat cells. Poison control contacted please see nursing notes. I have greeted and performed a rapid initial assessment of this patient. A comprehensive ED assessment and evaluation of the patient, analysis of test results and completion of medical decision making process we will be contacted by additional ED providers. TRAVEL OUTSIDE OF THE [place] IN LAST 30 DAYS: No - HPI Onset: Just prior to arrival Associated Symptoms: Abdominal pain, Body/muscle aches, Nausea Exacerbated by: Denies Relieved by: Denies Similar symptoms previously: Yes Recently seen / treated by doctor: No - Related Data Smoking: Non-smoker Frequency of alcohol use: None Drug Abuse: Prescription drugs Allergies/Adverse Reactions: No Known Allergies Allergy (Verified 04/10/17 15:55) Past Medical History - Past Medical History Cardiac Medical History: Denies: Hx Atrial Fibrillation, Hx Congestive Heart Failure, Hx Coronary Artery Disease, Hx DVT, Hx Heart Attack, Hx Hypercholesterolemia, Hx Hypertension, Hx Peripheral Vascular Disease, Hx Pulmonary Embolism, Hx Heart Murmur Pulmonary Medical History: Denies: Hx Asthma, Hx Bronchitis, Hx COPD, Hx Pneumonia, Hx Intubation, Hx Respiratory Failure, Hx Sleep Apnea, Hx Tuberculosis Neurological Medical History: Denies: Hx Migraine, Hx Seizures Endocrine Medical History: Reports: Hx Hypothyroidism. Denies: Hx Diabetes Mellitus Type 1, Hx Diabetes Mellitus Type 2 Renal/ Medical History: Denies: Hx End Stage Renal Disease, Hx Peritoneal Dialysis Malignancy Medical History: Denies: Hx Bone Cancer, Hx Brain Cancer, Hx Breast Cancer, Hx Cervical Cancer, Hx Colorectal Cancer, Hx Leukemia, Hx Liver Cancer, Hx Lung Cancer, Hx Lymphoma, Hx Ovarian Cancer, Hx Pancreatic Cancer, Hx Renal (Kidney) Cancer, Hx Skin Cancer GI Medical History: Reports: Hx Gastritis, Hx Gastroesophageal Reflux Disease Musculoskeltal Medical History: Reports Hx Arthritis, Reports Hx Musculoskeletal Deformity, Reports Hx Musculoskeletal Trauma Psychiatric Medical History: Reports: Hx Anxiety, Hx Bipolar Disorder, Hx Depression, Hx Schizophrenia Past Surgical History: Reports: Hx Hysterectomy - Immunizations Immunizations up to date: No Hx Diphtheria, Pertussis, Tetanus Vaccination: Yes Physical Exam - Vital signs Vitals: Temp Pulse Resp BP Pulse Ox 98.8 F 103 H 16 134/79 H 97 12/25/18 18:27 12/25/18 18:27 12/25/18 18:27 12/25/18 18:27 12/25/18 18:27 Course - Vital Signs Vital signs: Temp Pulse Resp BP Pulse Ox 98.8 F 103 H 16 134/79 H 97 12/25/18 18:27 12/25/18 18:27 12/25/18 18:27 12/25/18 18:27 12/25/18 18:27 Doctor's Discharge - Discharge Referrals: KEATON LEE MD [Primary Care Provider] - Follow up as needed
== END 2018-12-25 19:58 | disposition left against medical advice (07) ==
LOC: ER 18:21
DX: Z53.21 Procedure and treatment not carried out due to patient leaving prior to being seen by health care provider (principal); F25.9 Schizoaffective disorder, unspecified; Z79.899 Other long term (current) drug therapy
CPT/HCPCS: 99281

== ENCOUNTER 2019-12-05 13:26 | Emergency (ER) | payer MEDICAID ==
[2019-12-05] MEDS ORDERED: DICYCLOMINE HCL INJ 20 MG/2 ML AMPULE IM ONE (13:49)
[2019-12-05] MEDS ORDERED: ONDANSETRON HCL INJ/PF 4 MG/2 ML SDV IV ONE ×2 (13:49→17:04)
[2019-12-05] MEDS ORDERED: NORMAL SALINE 1000 ML 1,000 ML IV ONE (13:49)
--- NOTE | 2019-12-05 13:51 | ER Document Report ---
ED Medical Screen (RME) - General Chief Complaint: Abdominal Pain Stated Complaint: ABDOMINAL PAIN Time Seen by Provider: 12/05/19 13:45 Primary Care Provider: KEATON LEE MD [Primary Care Provider] - Follow up as needed TRAVEL OUTSIDE OF THE [place] IN LAST 30 DAYS: No - HPI Notes: 12/05/19 13:50 39-year-old female to the emergency department with complaints of all over abdominal pain with cramping that began this morning about 2 AM. She states she woke up with the pain and tried to go to work. She states that she has been nauseated and feeling like she has to go the bathroom. She did have a bowel movement that she states she strained with. Denies any janet vomiting. She states she continues to have abdominal pain. States that she typically has a bowel movement every 3 days but does not really struggle with constipation. Her last bowel movement was 3 days ago. Denies any fevers or chills. 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 She states that she may have come in contact with a sick person. I performed a brief medical screening exam on the patient determined that she will need further evaluation by main side provider. I placed initial orders to help expedite her care. - Related Data Allergies/Adverse Reactions: No Known Allergies Allergy (Verified 12/05/19 13:45) Past Medical History - Past Medical History Cardiac Medical History: Denies: Hx Atrial Fibrillation, Hx Congestive Heart Failure, Hx Coronary Artery Disease, Hx DVT, Hx Heart Attack, Hx Hypercholesterolemia, Hx Hypertension, Hx Peripheral Vascular Disease, Hx Pulmonary Embolism, Hx Heart Murmur Pulmonary Medical History: Denies: Hx Asthma, Hx Bronchitis, Hx COPD, Hx Pneumonia, Hx Intubation, Hx Respiratory Failure, Hx Sleep Apnea, Hx Tuberculosis Neurological Medical History: Denies: Hx Migraine, Hx Seizures Endocrine Medical History: Reports: Hx Hypothyroidism. Denies: Hx Diabetes Mellitus Type 1, Hx Diabetes Mellitus Type 2 Renal/ Medical History: Denies: Hx End Stage Renal Disease, Hx Peritoneal Dialysis Malignancy Medical History: Denies: Hx Bone Cancer, Hx Brain Cancer, Hx Breast Cancer, Hx Cervical Cancer, Hx Colorectal Cancer, Hx Leukemia, Hx Liver Cancer, Hx Lung Cancer, Hx Lymphoma, Hx Ovarian Cancer, Hx Pancreatic Cancer, Hx Renal (Kidney) Cancer, Hx Skin Cancer GI Medical History: Reports: Hx Gastritis, Hx Gastroesophageal Reflux Disease Musculoskeltal Medical History: Reports Hx Arthritis, Reports Hx Musculoskeletal Deformity, Reports Hx Musculoskeletal Trauma Psychiatric Medical History: Reports: Hx Anxiety, Hx Bipolar Disorder, Hx Depression, Hx Schizophrenia Past Surgical History: Reports: Hx Hysterectomy - Immunizations Immunizations up to date: No Hx Diphtheria, Pertussis, Tetanus Vaccination: Yes Physical Exam - Vital signs Vitals: Temp Pulse Resp BP Pulse Ox 98.2 F 81 18 124/75 96 12/05/19 13:45 12/05/19 13:45 12/05/19 13:45 12/05/19 13:45 12/05/19 13:45 Course - Vital Signs Vital signs: Temp Pulse Resp BP Pulse Ox 98.2 F 81 18 124/75 96 12/05/19 13:45 12/05/19 13:45 12/05/19 13:45 12/05/19 13:45 12/05/19 13:45 Doctor's Discharge - Discharge Referrals: KEATON LEE MD [Primary Care Provider] - Follow up as needed
[2019-12-05 14:29] LABS: APPEARANCE,URINE CLOUDY; BILIRUBIN,URINE NEGATIVE (NEGATIVE); COLOR,URINE YELLOW; GLUCOSE, URINE NEGATIVE (NEGATIVE); KETONES,URINE NEGATIVE (NEGATIVE); LEUKOCYTE ESTERASE,URINE NEGATIVE (NEGATIVE); NITRITE,URINE NEGATIVE (NEGATIVE); PROTEIN,URINE 30 mg/dL (NEGATIVE); URINE SPECIFIC GRAVITY 1.028
[2019-12-05 15:05] LABS: ABSOLUTE BASOPHILS # (AUTO) 0.1 10^3/uL (0.0-0.2); ABSOLUTE EOSINOPHILS # (AUTO) 0.2 10^3/uL (0.0-0.6); ABSOLUTE MONOCYTES (AUTO) 0.5 10^3/uL (0.1-1.4); HEMOGLOBIN 12.5 g/dL (12.0-15.5); PLATELET COUNT 229 10^3/uL (150-450); TOTAL CELLS COUNTED % (AUTO) 100 %
[2019-12-05 15:22] LABS: ABSOLUTE LYMPHOCYTES (AUTO) 2.4 10^3/uL (0.5-4.7); ABSOLUTE NEUT (AUTO) 8.4 10^3/uL (1.7-8.2); BASOPHILS % (AUTO) 0.7 % (0-2); EOSINOPHILS % (AUTO) 1.8 % (0-6); HEMATOCRIT 38.3 % (36.0-47.0); LYMPHOCYTES % (AUTO) 20.7 % (13-45); MEAN CORPUSCULAR HEMOGLOBIN 23.5 pg (27.0-33.4); MEAN CORPUSCULAR HGB CONC 32.8 g/dL (32.0-36.0); MEAN CORPUSCULAR VOLUME 72 fl (80-97); MONOCYTES % (AUTO) 4.3 % (3-13); RED BLOOD COUNT 5.34 10^6/uL (3.72-5.28); RED CELL DISTRIBUTION WIDTH 16.7 % (11.5-14.0); SEGMENTED NEUTROPHILS % (AUTO) 72.5 % (42-78); WHITE BLOOD COUNT 11.6 10^3/uL (4.0-10.5)
[2019-12-05 15:27] LABS: ALBUMIN 4.4 g/dL (3.5-5.0); ALKALINE PHOSPHATASE 78 U/L (38-126); ANION GAP 8 (5-19); ASPARTATE AMINO TRANSFERASE 25 U/L (14-36); BILIRUBIN,TOTAL 0.4 mg/dL (0.2-1.3); BLOOD UREA NITROGEN 7 mg/dL (7-20); CALCIUM 9.4 mg/dL (8.4-10.2); CARBON DIOXIDE 27 mmol/L (22-30); CHLORIDE 104 mmol/L (98-107); GLUCOSE 85 mg/dL (75-110); POTASSIUM 3.5 mmol/L (3.6-5.0); TOTAL PROTEIN 7.7 g/dL (6.3-8.2)
--- NOTE | 2019-12-05 15:39 | ER Document Report ---
ED GI/ - General Chief Complaint: Abdominal Pain Stated Complaint: ABDOMINAL PAIN Time Seen by Provider: 12/05/19 13:45 Primary Care Provider: KEATON LEE MD [Primary Care Provider] - Follow up as needed Notes: Patient is a 39-year-old female who presents the emergency department with a chief complaint of abdominal pain. Patient states that her pain started around 2:00 this morning. States that it is in her generalized abdomen. Patient states that she has history of constipation in the past. When she did have a bowel movement, but states that it was about 24 hours prior to her previous bowel movement. Patient has a history of a hysterectomy in the past. TRAVEL OUTSIDE OF THE [place] IN LAST 30 DAYS: No - Related Data Allergies/Adverse Reactions: No Known Allergies Allergy (Verified 12/05/19 13:45) Past Medical History - Social History Smoking Status: Unknown if Ever Smoked Chew tobacco use (# tins/day): No Frequency of alcohol use: Occasional Drug Abuse: None Family History: DM, Hyperlipidemia, Hypertension, Malignancy, Thyroid Disfunction Patient has suicidal ideation: No Patient has homicidal ideation: No - Past Medical History Cardiac Medical History: Denies: Hx Atrial Fibrillation, Hx Congestive Heart Failure, Hx Coronary Artery Disease, Hx DVT, Hx Heart Attack, Hx Hypercholesterolemia, Hx Hypertension, Hx Peripheral Vascular Disease, Hx Pulmonary Embolism, Hx Heart Murmur Pulmonary Medical History: Denies: Hx Asthma, Hx Bronchitis, Hx COPD, Hx Pneumonia, Hx Intubation, Hx Respiratory Failure, Hx Sleep Apnea, Hx Tuberculosis Neurological Medical History: Denies: Hx Migraine, Hx Seizures Endocrine Medical History: Reports: Hx Hypothyroidism. Denies: Hx Diabetes Mellitus Type 1, Hx Diabetes Mellitus Type 2 Renal/ Medical History: Denies: Hx End Stage Renal Disease, Hx Peritoneal Dialysis Malignancy Medical History: Denies: Hx Bone Cancer, Hx Brain Cancer, Hx Breast Cancer, Hx Cervical Cancer, Hx Colorectal Cancer, Hx Leukemia, Hx Liver Cancer, Hx Lung Cancer, Hx Lymphoma, Hx Ovarian Cancer, Hx Pancreatic Cancer, Hx Renal (Kidney) Cancer, Hx Skin Cancer GI Medical History: Reports: Hx Gastritis, Hx Gastroesophageal Reflux Disease Musculoskeletal Medical History: Reports Hx Arthritis, Reports Hx Musculoskeletal Deformity, Reports Hx Musculoskeletal Trauma Psychiatric Medical History: Reports: Hx Anxiety, Hx Bipolar Disorder, Hx De pression, Hx Schizophrenia Past Surgical History: Reports: Hx Hysterectomy - Immunizations Immunizations up to date: No Hx Diphtheria, Pertussis, Tetanus Vaccination: Yes Review of Systems - Review of Systems Notes: REVIEW OF SYSTEMS: CONSTITUTIONAL : Denies recent illness. Denies recent unintentional weight loss. Denies fever, chills, or sweats. EENT: Denies eye, ear, throat, or mouth pain, discharge, or symptoms. Denies nasal or sinus congestion. CARDIOVASCULAR: Denies chest pain. RESPIRATORY: Denies shortness of breath, cough, congestion, difficulty breathing, or wheezing. GASTROINTESTINAL: See HPI. GENITOURINARY: Denies difficulty urinating, burning, blood in urine, urgency or frequency. FEMALE GENITOURINARY: Denies abnormal or irregular periods. Denies abnormal bleeding. MUSCULOSKELETAL: Denies neck and back pain. Denies joint pain or swelling. SKIN: Denies rash, itchiness, or lesions HEMATOLOGIC : Denies easy bruising or bleeding. LYMPHATIC: Denies swollen, painful, enlarged glands. NEUROLOGICAL: Denies no numbness or tingling denies weakness. Denies headache. Denies altered mental status. Denies alteration in speech. PSYCHIATRIC: Denies stress, anxiety, alteration in sleep patterns, or depre ssion. All other systems reviewed and negative. Physical Exam - Vital signs Vitals: Temp Pulse Resp BP Pulse Ox 98.2 F 81 18 124/75 96 12/05/19 13:45 12/05/19 13:45 12/05/19 13:45 12/05/19 13:45 12/05/19 13:45 - Notes Notes: PHYSICAL EXAMINATION: GENERAL: Appears well, healthy, well-nourished, no acute distress. HEAD: Normocephalic, atraumatic. EYES: PERRL, conjunctiva normal, all extraocular movements intact, sclera nonicteric ENT: Moist mucous membranes. NECK: Supple, no noticeable swelling, redness, rash. Normal range of motion. LUNGS: Equal breath sounds bilaterally and clear to auscultation. No wheezes rales or rhonchi. CARDIOVASCULAR: S1-S2, regular rate, regular rhythm. Radial pulses 2+, normal. ABDOMEN: Normoactive bowel sounds. Soft, tender lower abdomen, no guarding, no rebound tenderness, and no masses palpated. EXTREMITIES: Normal strength and range of motion, no pitting or edema. No cyanosis. NEUROLOGICAL: Moves all extremities upon command. Strength 5/5 in all extremities. PSYCH: Normal mood, normal affect. SKIN: Warm, dry. No rash, lesions, ulcerations noted. Normal skin turgor. Course - Re-evaluation Re-evalutation: 12/05/19 17:36 CT of the abdomen pelvis do not show any significant findings. No appendicitis, diverticulitis, diverticulosis noted. Urine will be sent for culture. No leukocytes noted. Patient will be sent home with Zoan to help with nausea. This may be the beginning of a viral infection. Advised the patient to follow- up with her primary care provider as needed. Follow-up precautions were given. Verbal discharge instructions were given to the patient. They verbalized understanding. They are stable for discharge. - Vital Signs Vital signs: Temp Pulse Resp BP Pulse Ox 98.0 F 71 16 131/89 H 99 12/05/19 17:33 12/05/19 17:33 12/05/19 17:33 12/05/19 17:33 12/05/19 17:33 - Laboratory Result Diagrams: 12/05/19 14:50 12/05/19 14:50 Laboratory results interpreted by me: 12/05/19 12/05/19 12/05/19 14:00 14:50 14:50 WBC 11.6 H RBC 5.34 H MCV 72 L MCH 23.5 L RDW 16.7 H Absolute Neuts (auto) 8.4 H Potassium 3.5 L Urine Protein 30 H Urine Urobilinogen 4.0 H Discharge - Discharge Clinical Impression: Nausea Abdominal pain Qualifiers: Abdominal location: left lower quadrant Qualified Code(s): R10.32 - Left lower quadrant pain Condition: Stable Disposition: HOME, SELF-CARE Additional Instructions: You have been seen in the Emergency Department (ED) for abdominal pain. Your evaluation did not identify a clear cause of your symptoms but was generally reassuring. Please follow up with your doctor as soon as possible regarding today's emergent visit and the symptoms that are bothering you. Return to the ED if your abdominal pain worsens or fails to improve, you develop bloody vomiting, bloody diarrhea, you are unable to tolerate fluids due to vomiting, fever greater than 101, or other symptoms that concern you. Prescriptions: Ondansetron [Zofran Odt 4 mg Tablet] 1 - 2 tab PO Q4H PRN #15 tab.rapdis PRN Reason: For Nausea/Vomiting Forms: Return to Work Referrals: KEATON LEE MD [Primary Care Provider] - Follow up as needed
--- NOTE | 2019-12-05 16:41 | RADIOLOGY REPORT (SQ) ---
EXAM DESCRIPTION: CT ABD/PELVIS WITH IV ONLY COMPLETED DATE/TIME: 12/05/2019 4:27 pm REASON FOR STUDY: lower abdominal pain COMPARISON: None. TECHNIQUE: CT scan of the abdomen and pelvis performed using helical scanning technique with dynamic intravenous contrast injection. No oral contrast. Images reviewed with lung, soft tissue, and bone windows. Reconstructed coronal and sagittal MPR images reviewed. Delayed images for evaluation of the urinary system also acquired. All images stored on PACS. All CT scanners at this facility use dose modulation, iterative reconstruction, and/or weight based d osing when appropriate to reduce radiation dose to as low as reasonably achievable (ALARA). [facility]: Dose Right [facility]: CareDose [facility]: Dose Right [facility]: Teradose 4D [facility]: [employer] CONTRAST TYPE AND DOSE: contrast/concentration: Isovue 350.00 mg/ml; Total Contrast Delivered: 100.0 ml; Total Saline Delivered: 72.0 ml RENAL FUNCTION: GFR > 60. RADIATION DOSE: CT Rad equipment meets quality standard of care and radiation dose reduction techniq ues were employed. CTDIvol: 16.8 - 20.3 mGy. DLP: 2134 mGy-cm.. LIMITATIONS: None. FINDINGS: LOWER CHEST: No significant findings. No nodules or infiltrates. LIVER: Normal size. No masses. No dilated ducts. SPLEEN: Normal size. No focal lesions. PANCREAS: No masses. No significant calcifications. No adjacent inflammation or peripancreatic fluid collections. Pancreatic duct not dilated. GALLBLADDER: No identified stones by CT criteria. No inflammatory changes to suggest cholecystitis. ADRENAL GLANDS: No significant masses or asymmetry. RIGHT KIDNEY AND URETER: No solid masses. No significant calcifications. No hydronephrosis or hyd roureter. LEFT KIDNEY AND URETER: No solid masses. No significant calcifications. No hydronephrosis or hydr oureter. AORTA AND VESSELS: No aneurysm. No dissection. Renal arteries, SMA, celiac without stenosis. RETROPERITONEUM: No retroperitoneal adenopathy, hemorrhage or masses. BOWEL AND PERITONEAL CAVITY: No masses or inflammatory changes. No free fluid or peritoneal masses. APPENDIX: Normal. PELVIS: No mass. No free fluid. Normal bladder. ABDOMINAL WALL: No masses. No hernias. BONES: No significant or acute findings. OTHER: No other significant finding. IMPRESSION: NO SIGNIFICANT OR ACUTE FINDING IN THE ABDOMEN OR PELVIS ON CT SCAN WITH IV CONTRAST. TECHNICAL DOCUMENTATION: JOB ID: [id number] Quality ID # [id number]: Final reports with documentation of one or more dose reduction techniques (e.g., Au tomated exposure control, adjustment of the mA and/or kV according to patient size, use of iterative reconstruction technique) 2010 [employer]- All Rights Reserved Reading location - IP/workstation name: [email or web address]
[2019-12-05] MEDS ORDERED: MORPHINE SULFATE 10 MG/ML INJ IV ONE (17:04)
[2019-12-05 17:34] VITALS: BP 131/89
== END 2019-12-05 18:04 | disposition home or self-care (01) ==
LOC: ER 13:26
DX: R10.32 Left lower quadrant pain (principal); R11.0 Nausea; R10.84 Generalized abdominal pain
CPT/HCPCS: 96376; 99284; 96372; 96361; 96374; 96375; 36415; 87086; 83690; 85025; 80053; 81001; 74177; J0500; J2270; J2405; J7030

== ENCOUNTER 2020-01-14 17:23 | Emergency (ER) | payer MEDICAID ==
[2020-01-14 17:50] LABS: VENOUS BLOOD BASE EXCESS -3.5 mmol/L; VENOUS BLOOD HCO3 22.9 mmol/L (20-32); VENOUS BLOOD PCO2 46.6 mmHg (35-63); VENOUS BLOOD PH 7.31 (7.30-7.42)
[2020-01-14 17:54] LABS: INTERNATIONAL RATION (INR) 1.09; PROTHROMBIN TIME 14.1 SEC (11.4-15.4)
--- NOTE | 2020-01-14 17:54 | ER Document Report ---
ED General - General Chief Complaint: Breathing Difficulty Stated Complaint: DIFFICULTY BREATHING Time Seen by Provider: 01/14/20 17:37 Primary Care Provider: KEATON LEE MD [Primary Care Provider] - Follow up as needed Notes: 39-year-old female comes in with multiple complaints. Patient complains of chest pain in her chest difficulty breathing and some numbness on the left side of her body. Stated began at 3 AM last night. Stated began suddenly and she has tolerated throughout the day she complains of severe sharp chest pain that radiates to her left shoulder and sometimes to her back. Is worse with movement and taking a deep breath. Rates the pain is severe. She also complains of numbness to the entire left side of her body. Patient denies any hyperventilation but seems to be quite anxious. Denies any falls or trauma denies any illicit drug use. The patient denies any motor weakness. Her main complaint is pain TRAVEL OUTSIDE OF THE [place] IN LAST 30 DAYS: No - Related Data Allergies/Adverse Reactions: No Known Allergies Allergy (Verified 01/14/20 18:01) Past Medical History - Social History Smoking Status: Never Smoker Chew tobacco use (# tins/day): No Frequency of alcohol use: None Drug Abuse: None Family History: DM, Hyperlipidemia, Hypertension, Malignancy, Thyroid Disfunction Patient has suicidal ideation: No Patient has homicidal ideation: No - Past Medical History Cardiac Medical History: Denies: Hx Atrial Fibrillation, Hx Congestive Heart Failure, Hx Coronary Artery Disease, Hx DVT, Hx Heart Attack, Hx Hypercholesterolemia, Hx Hypertensio n, Hx Peripheral Vascular Disease, Hx Pulmonary Embolism, Hx Heart Murmur Pulmonary Medical History: Denies: Hx Asthma, Hx Bronchitis, Hx COPD, Hx Pneumonia, Hx Intubation, Hx Respiratory Failure, Hx Sleep Apnea, Hx Tuberculosis Neurological Medical History: Denies: Hx Migraine, Hx Seizures Endocrine Medical History: Reports: Hx Hypothyroidism. Denies: Hx Diabetes Mellitus Type 1, Hx Diabetes Mellitus Type 2 Renal/ Medical History: Denies: Hx End Stage Renal Disease, Hx Peritoneal Dialysis Malignancy Medical History: Denies: Hx Bone Cancer, Hx Brain Cancer, Hx Breast Cancer, Hx Cervical Cancer, Hx Colorectal Cancer, Hx Leukemia, Hx Liver Cancer, Hx Lung Cancer, Hx Lymphoma, Hx Ovarian Cancer, Hx Pancreatic Cancer, Hx Renal (Kidney) Cancer, Hx Skin Cancer GI Medical History: Reports: Hx Gastritis, Hx Gastroesophageal Reflux Disease Musculoskeletal Medical History: Reports Hx Arthritis, Reports Hx Musculoskel etal Deformity, Reports Hx Musculoskeletal Trauma Psychiatric Medical History: Reports: Hx Anxiety, Hx Bipolar Disorder, Hx Depression, Hx Schizophrenia Past Surgical History: Reports: Hx Hysterectomy - Immunizations Immunizations up to date: No Hx Diphtheria, Pertussis, Tetanus Vaccination: Yes Review of Systems - Review of Systems Constitutional: denies: Chills, Fever Cardiovascular: Chest pain, Heart racing, Dyspnea. denies: Edema Respiratory: Cough, Hurts to breathe, Short of breath, Wheezing Gastrointestinal: denies: Diarrhea, Nausea, Vomiting Genitourinary: denies: Burning, Dysuria, Hematuria Musculoskeletal: Back pain Neurological/Psychological: Anxiety, Tingling -: Yes All other systems reviewed and negative Physical Exam - Vital signs Vitals: Temp Resp Pulse Ox 97.7 F 32 H 100 01/14/20 17:28 01/14/20 17:28 01/14/20 17:28 - Notes Notes: GENERAL_APPEARANCE: well_nourished, alert, cooperative, noticeably anxious and fidgety VITALS: reviewed, see vital signs table. HEAD: no_swelling\tenderness on the head. EYES: PERRL, EOMI, conjunctiva_clear. NOSE: no_nasal_discharge. MOUTH: (-)decreased moisture. THROAT: no_tonsilar_inflammation, no_airway_obstruction. no_lymphadenopathy NECK: supple, no_neck_tenderness, (-)thyromegaly. BACK: no_back_tenderness. CHEST_WALL: Diffuse pain on the left side of the chest no crepitus no subcutaneous emphysema patient is very hyperesthetic and jumps as you palpate the left side of the chest LUNGS: no_wheezing, no_rales, no_rhonchi, (-)accessory muscle use, good air exchange bilateral. HEART: normal_rate, normal_rhythm, normal_S1, normal_S2, (-)S3, (-)S4, no_murmur, no_rub. ABDOMEN: normal_BS, soft, no_abd_tenderness, (-)guarding, (-)rebound, no_organomegaly, no_abd_masses. EXTREMITIES: good pulses in all_extremities, no_swelling\tenderness in the extremities, no_edema. SKIN: warm, dry, good_color, no_rash. MENTAL_STATUS: speech_rapid and anxious, oriented_X_3, anxious_affect, responds_appropriately to questions. NEURO: Subjective tingling left face arm and leg otherwise normal, neg Motor Deficits on exam, CN 2-12 intact, DTR 2+ symmetric x 4, No cerbellar signs Course - Re-evaluation Re-evalutation: 01/14/20 17:53 39-year-old female who comes in with multiple complaints chest discomfort numbness. The patient has good upper extremity radial and ulnar pulses with good intensity and quality. We will get a d-dimer but my suspicion for PE and dissection is low. We will scan her head. However I think this may be all anxiety driven. She has no motor weakness. 01/14/20 19:44 Reevaluated the patient. She states the numbness and tingling is gone on her left arm and leg. She states the Ativan helped. Patient complains of a lot of chest pain rating to her back. We will get a CTA to rule out aortic dissection since she does have left-sided numbness and tingling and chest discomfort. Be sure there is no aortic pathology. The patient is very inconsistent though in her history. Patient does have a sizable psychiatric history in the past. I t hink anxiety may contribute she is methamphetamine positive which may be due to her phentermine or illicit it is difficult to tell. This would explain her anxiety level. 01/14/20 21:06 CT of the chest is negative for PE or dissection. Nothing to suggest her difficulty breathing I think a lot of this is anxiety driven. She feels much better since getting Ativan - She complains of significant chest wall tenderness and is very hyperesthetic and reactive. We will give her a dose of Toradol here . Again I spoke with her about her risk for stroke and otherwise I do not believe she has acute stroke. Her pressure is up but this is likely due to her anxiety and her chest wall pain. She does not have an aortic dissection. I do not feel she has stroke she has no weakness she is able to get up and move around. I did not dissected any weakness whatsoever she just had a subjective numbness and tingling for which is pretty much gone after the Ativan. I spoke with her at length and she continues to have this in the next 24 hours she is to return and be rechecked. Otherwise she will be discharged home. - Vital Signs Vital signs: Temp Pulse Resp BP Pulse Ox 97.7 F 15 134/93 H 100 01/14/20 17:49 01/14/20 19:01 01/14/20 18:01 01/14/20 19:01 - Laboratory Result Diagrams: 01/14/20 17:33 01/14/20 17:33 Laboratory results interpreted by me: 01/14/20 01/14/20 17:33 18:00 WBC 13.6 H RBC 5.52 H MCV 72 L MCH 23.9 L RDW 17.5 H Absolute Neuts (auto) 8.4 H Urine Urobilinogen 4.0 H - Diagnostic Test Radiology reviewed: Reports reviewed Radiology results interpreted by me: 01/14/20 21:05 Chest X-Ray 01/14/20 00:00 IMPRESSION: 1. No significant interval changes since the prior examination dated 04/10/2017. No acute findings. 2. The patient's chin obscures detail in the biapical region somewhat. Head CT 01/14/20 18:27 IMPRESSION: 1. No significant interval changes since the prior examination dated 07/21/2015. No acute intracranial abnormality. 2. Small mucous retention cyst or polyps in the left maxillary and right sphenoid sinus. EVIDENCE OF ACUTE STROKE: NO. Chest/Abdomen CTA 01/14/20 19:42 IMPRESSION: 1. No evidence of thoracic aortic aneurysm or dissection. 2. No pulmonary embolism. 3. Minimal volume loss in the lung bases posteriorly. - EKG Interpretation by Pa EKG shows normal: Sinus rhythm Rate: Normal Discharge - Discharge Clinical Impression: Costochondritis, acute, Paresthesias, Anxiety Condition: Good Disposition: HOME, SELF-CARE Instructions: Costochondritis ([facility]), Numbness or Paresthesia ([facility]), Anxiety ([facility]) Additional Instructions: If you do not feel better in 24 hours return to the ER otherwise follow-up with your family doctorif worse return soon as possible I have sent an antinflammatory to [facility] electronically Prescriptions: Ibuprofen [Motrin 600 Mg Tablet] 600 mg PO TID #15 tablet Referrals: KEATON LEE MD [Primary Care Provider] - Follow up as needed
[2020-01-14 17:57] LABS: ABSOLUTE BASOPHILS # (AUTO) 0.1 10^3/uL (0.0-0.2); ABSOLUTE EOSINOPHILS # (AUTO) 0.2 10^3/uL (0.0-0.6); ABSOLUTE LYMPHOCYTES (AUTO) 4.2 10^3/uL (0.5-4.7); ABSOLUTE MONOCYTES (AUTO) 0.6 10^3/uL (0.1-1.4); ABSOLUTE NEUT (AUTO) 8.4 10^3/uL (1.7-8.2); BASOPHILS % (AUTO) 0.7 % (0-2); D-DIMER 0.35 ug/mL (0.00-0.50); EOSINOPHILS % (AUTO) 1.5 % (0-6); HEMATOCRIT 39.6 % (36.0-47.0); HEMOGLOBIN 13.2 g/dL (12.0-15.5); MEAN CORPUSCULAR HEMOGLOBIN 23.9 pg (27.0-33.4); MEAN CORPUSCULAR HGB CONC 33.2 g/dL (32.0-36.0); MEAN CORPUSCULAR VOLUME 72 fl (80-97); MONOCYTES % (AUTO) 4.7 % (3-13); PLATELET COUNT 262 10^3/uL (150-450); RED BLOOD COUNT 5.52 10^6/uL (3.72-5.28); RED CELL DISTRIBUTION WIDTH 17.5 % (11.5-14.0); SEGMENTED NEUTROPHILS % (AUTO) 62.1 % (42-78); TOTAL CELLS COUNTED % (AUTO) 100 %; WHITE BLOOD COUNT 13.6 10^3/uL (4.0-10.5)
[2020-01-14 18:10] LABS: ALBUMIN 4.5 g/dL (3.5-5.0); ALKALINE PHOSPHATASE 82 U/L (38-126); ANION GAP 13 (5-19); ASPARTATE AMINO TRANSFERASE 22 U/L (14-36); BILIRUBIN,TOTAL 0.5 mg/dL (0.2-1.3); BLOOD UREA NITROGEN 11 mg/dL (7-20); CALCIUM 9.6 mg/dL (8.4-10.2); CARBON DIOXIDE 24 mmol/L (22-30); CHLORIDE 101 mmol/L (98-107); GLUCOSE 90 mg/dL (75-110); POTASSIUM 3.7 mmol/L (3.6-5.0); TOTAL PROTEIN 7.8 g/dL (6.3-8.2)
[2020-01-14 18:20] LABS: APPEARANCE,URINE SLIGHTLY-CLOUDY; BILIRUBIN,URINE NEGATIVE (NEGATIVE); COLOR,URINE YELLOW; GLUCOSE, URINE NEGATIVE (NEGATIVE); KETONES,URINE NEGATIVE (NEGATIVE); LEUKOCYTE ESTERASE,URINE NEGATIVE (NEGATIVE); NITRITE,URINE NEGATIVE (NEGATIVE); PROTEIN,URINE NEGATIVE (NEGATIVE); URINE SPECIFIC GRAVITY 1.028
[2020-01-14 18:24] LABS: URINE BARBITURATES SCREEN NEGATIVE; URINE BENZODIAZEPINES SCREEN NEGATIVE; URINE COCAINE SCREEN NEGATIVE; URINE MARIJUANA (THC) SCREEN NEGATIVE; URINE METHADONE SCREEN NEGATIVE; URINE PHENCYCLIDINE SCREEN NEGATIVE
[2020-01-14 18:25] LABS: URINE AMPHETAMINES SCREEN UNCONFIRMED POSITIVE
[2020-01-14] MEDS ORDERED: LORAZEPAM INJ 2 MG/1 ML VIAL IV ONE (18:29)
--- NOTE | 2020-01-14 18:47 | RADIOLOGY REPORT (SQ) ---
EXAM DESCRIPTION: CHEST SINGLE VIEW IMAGES COMPLETED DATE/TIME: 01/14/2020 6:34 pm REASON FOR STUDY: shortness of breath COMPARISON: 04/10/2017 EXAM PARAMETERS: NUMBER OF VIEWS: One view. TECHNIQUE: Single frontal radiographic view of the chest acquired. RADIATION DOSE: NA LIMITATIONS: None. FINDINGS: LUNGS AND PLEURA: The patient's chin obscures detail in the biapical regions somewhat. N o opacities, masses or pneumothorax. No pleural effusion. MEDIASTINUM AND HILAR STRUCTURES: No masses. Contour normal. HEART AND VASCULAR STRUCTURES: Heart normal in size. Normal vasculature. BONES: No acute findings. HARDWARE: None in the chest. OTHER: No other significant finding. IMPRESSION: 1. No significant interval changes since the prior examination dated 04/10/2017. No acu te findings. 2. The patient's chin obscures detail in the biapical region somewhat. TECHNICAL DOCUMENTATION: JOB ID: [id number] 2010 [employer]- All Rights Reserved Reading location - IP/workstation name: [email or web address]
--- NOTE | 2020-01-14 19:02 | RADIOLOGY REPORT (SQ) ---
EXAM DESCRIPTION: CT HEAD WITHOUT IMAGES COMPLETED DATE/TIME: 01/14/2020 6:46 pm REASON FOR STUDY: left sided numbness COMPARISON: 07/21/2015 TECHNIQUE: Axial images acquired through the brain without intravenous contrast. Images reviewed wi th bone, brain and subdural windows. Additional sagittal and coronal reconstructions were generated. Images stored on PACS. All CT scanners at this facility use dose modulation, iterative reconstruction, and/or weight based d osing when appropriate to reduce radiation dose to as low as reasonably achievable (ALARA). [facility]: Dose Right [facility]: CareDose [facility]: Dose Right [facility]: Teradose 4D [facility]: Smart Anytime DD RADIATION DOSE: CT Rad equipment meets quality standard of care and radiation dose reduction techniq ues were employed. CTDIvol: 53.2 mGy. DLP: 911 mGy-cm. LIMITATIONS: None. FINDINGS: VENTRICLES: Normal size and contour. The cisterns are patent. CEREBRUM: No masses. No hemorrhage. No midline shift. No evidence for acute infarction. Normal gra y/white matter differentiation. No areas of low density in the white matter. CEREBELLUM: No masses. No hemorrhage. No alteration of density. No evidence for acute infarction. EXTRAAXIAL SPACES: No fluid collections. No masses. ORBITS AND GLOBE: No intra- or extraconal masses. Normal contour of globe without masses. CALVARIUM: No fracture. PARANASAL SINUSES: Small left maxillary and right sphenoid sinus mucous retention cysts or polyps. Minimal mucoperiosteal thickening in the bilateral maxillary sinuses. No fluid. SOFT TISSUES: No mass or hematoma. OTHER: No other significant finding. IMPRESSION: 1. No significant interval changes since the prior examination dated 07/21/2015. No acu te intracranial abnormality. 2. Small mucous retention cyst or polyps in the left maxillary and right sphenoid sinus. EVIDENCE OF ACUTE STROKE: NO. COMMENT: Quality ID # 436: Final reports with documentation of one or more dose reduction techniques (e.g., Automated exposure control, adjustment of the mA and/or kV according to patient size, use of iterative reconstruction technique) TECHNICAL DOCUMENTATION: JOB ID: [id number] 2010 [employer]- All Rights Reserved Reading location - IP/workstation name: [facility]
--- NOTE | 2020-01-14 20:38 | RADIOLOGY REPORT (SQ) ---
EXAM EXAM DESCRIPTION: CT pulmonary angiogram of the chest with IV contrast CLINICAL HISTORY: 39 years Female; CP to back - r/o aortic dissection TECHNIQUE: CT angiogram of the chest using intravenous contrast.. MIP reconstructions were performed. All CT scans at this facility use dose modulation, iterative reconstruction, and/or weight based dosing when appropriate to reduce radiation dose to as low as reasonably achievable. COMPARISON: None. FINDINGS: Chest: Vascular: The thoracic aorta is of normal shape and configuration. No plaque. No dissection or aneurysm. No intramural hematoma. No filling defects are seen in the central pulmonary arteries. Lungs: Mild dependent densities present in the lung bases posteriorly. No focal consolidation. No pneumothorax or pleural effusion. No pulmonary nodules or masses. Mediastinum: Heart size is within normal limits. No pericardial abnormality. No mediastinal or hilar lymphadenopathy. The thyroid gland appears normal. Bones and soft tissues: Unremarkable Upper Abdomen: Visualized portion of the upper abdomen is unremarkable. IMPRESSION: 1. No evidence of thoracic aortic aneurysm or dissection. 2. No pulmonary embolism. 3. Minimal volume loss in the lung bases posteriorly.
[2020-01-14] MEDS ORDERED: KETOROLAC TROMETHAMINE INJ/PF 30 MG/1 ML SDV IV ONE (21:05)
[2020-01-14 21:32] VITALS: BP 125/109
--- NOTE | 2020-01-15 08:29 | EKG REPORT ---
SEVERITY:- OTHERWISE NORMAL ECG - SINUS RHYTHM LATERAL Q WAVES, PROBABLY NORMAL VARIATION : Confirmed by: Liyah Watts 15-Jan-2020 08:27:44
== END 2020-01-14 21:33 | disposition home or self-care (01) ==
LOC: ER 17:23
DX: F41.9 Anxiety disorder, unspecified (principal); M94.0 Chondrocostal junction syndrome [Tietze]; R05 Cough; R06.02 Shortness of breath; R06.2 Wheezing; M54.9 Dorsalgia, unspecified; R20.0 Anesthesia of skin; R20.2 Paresthesia of skin; R20.3 Hyperesthesia
CPT/HCPCS: 93005; 99285; 96374; 96375; 36415; 85025; 85610; 80053; 81001; 84484; 80307; 85379; 82803; 71045; 70450; 71275; 93010; J1885; J2060

== ENCOUNTER → 2020-01-16 | Outpatient (CLI) | payer MEDICAID ==
--- NOTE | 2020-01-16 16:59 | WOMENS IMAGING REPORT ---
EXAM DESCRIPTION: 3D DX MAMMO BILAT; U/S BREAST UNILAT LIMITED IMAGES COMPLETED DATE/TIME: 01/16/2020 1:24 pm; 01/16/2020 1:45 pm REASON FOR STUDY: N61.0 BILAT DX; LEFT BREAST MASTITIS N61.0 MASTITIS WITHOUT ABSCESS COMPARISON: No prior dedicated breast imaging EXAM PARAMETERS: Standard craniocaudal and mediolateral oblique views of each breast recorded using digital acquisition and breast tomosynthesis. Additional left breast 90 mediolateral view mammogram/ tomosynthesis Left breast ultrasound was also performed. Read with the assistance of CAD: .[facility] - [employer] M[employer]ainer Version 9.2 LIMITATIONS: None. FINDINGS: RIGHT BREAST MASSES: No suspicious masses. CALCIFICATIONS: No new or suspicious calcifications. ARCHITECTURAL DISTORTION: None. ASYMMETRY: None noted. OTHER: Tiny ducts are seen in the medial right breast with tiny 4 mm nodule on tomosynthesis images 50 through 66. This is indeterminate for malignancy. Stereotactic biopsy recommended (BI-RADS 4). LEFT BREAST MASSES: No suspicious masses. Small intramammary lymph node upper inner quadrant with adjacent ectat ic lymphatics best shown on tomosynthesis image 73 measuring about 15 mm size. CALCIFICATIONS: No new or suspicious calcifications. ARCHITECTURAL DISTORTION: None. ASYMMETRY: None noted. OTHER: Patient currently being treated for mastitis with left breast redness and tenderness. Along t he upper inner quadrant left breast, several enlarged ducts are present which exhibits homogeneous di ffuse calcification. There are dilated left retroareolar ducts medially with diffuse calcification. Left breast ultrasound: Ultrasound of the left breast retroareolar region and upper inner quadrant was performed. The calcif ied left breast ducts seen at tomosynthesis were not readily identified at ultrasound. IMPRESSION: Abnormal ductal structures in the medial right and medial left breast, both of which are indeterminate for malignancy (DCIS) and stereotactic biopsy is recommended. On the left side, patient has been treated with antibiotics for mastitis. Ducts in the upper inner q uadrant left breast could be postinflammatory rather than represent DCIS. When the patient's current mastitis treatment is complete, stereotactic biopsy of the calcified ductal tissue in the upper inne r quadrant left breast should be performed (BI-RADS 4). At that time, biopsy of the ductal structure s in the upper inner quadrant right breast can be performed (BI-RADS 4). BREAST DENSITY: a. The breasts are almost entirely fatty. BIRAD: ASSESSMENT: 4 Suspicious. Biopsy should be performed in the absence of clinical contra-indic ation. RECOMMENDATION: RECOMMENDED FOLLOW UP: Bilateral stereotactic biopsy for abnormal ductal tissue in b oth the medial right and medial left breast. This should be performed when the patient's current mastitis treatment is complete Biopsy should be prioritized once COVID 19 limitations are lifted. SPECIFIC INTERVENTION/IMAGING/CONSULTATION RECOMMENDED:Stereotactic biopsy bilateral COMMUNICATION:Patient notified by letter COMMENT: The patient has been notified of the results by letter per [facility] requirements. Additional no tification policies are in place for contacting patient with suspicious or incomplete findings. Quality ID #225: The [employer] recommends an annual screening mammogram for women aged 40 years or over. This facility utilizes a reminder system to ensure that all patients receive reminder letters, and/or direct phone calls for appointments. This includes reminders for routine scr eening mammograms, diagnostic mammograms, or other Breast Imaging Interventions when appropriate. Th is patient will be placed in the appropriate reminder system. TECHNICAL DOCUMENTATION: FINDING NUMBER: (1) ASSESSMENT: (1) JOB ID: [id number] 2010 [employer]- All Rights Reserved Reading location - IP/workstation name: [id number]
== END ==
LOC: WI 12:15
PROVIDERS: ATTEND Internal Medicine
DX: N61.0 Mastitis without abscess (principal)
CPT/HCPCS: 76642; 77066; G0279; 77062

== ENCOUNTER 2020-05-08 14:08 | Emergency (ER) | payer MEDICAID ==
[2020-05-08 14:13] VITALS: BP 128/80
== END 2020-05-08 14:45 | disposition left against medical advice (07) ==
LOC: ER 14:08
DX: Z53.21 Procedure and treatment not carried out due to patient leaving prior to being seen by health care provider (principal)

== ENCOUNTER 2020-05-15 19:21 | Emergency (ER) | payer MEDICAID ==
[2020-05-15] MEDS ORDERED: ACETAMINOPHEN 325 MG TABLET PO ONE (19:31)
--- NOTE | 2020-05-15 19:37 | ER Document Report ---
ED Medical Screen (RME) - General Chief Complaint: Pelvic Pain Stated Complaint: POSS ECTOPIC Time Seen by Provider: 05/15/20 19:29 Primary Care Provider: KEATON LEE MD [Primary Care Provider] - Follow up as needed Notes: Patient is a 39-year-old female who presents to the emergency department with a chief complaint of pelvic pain. Patient states that her pain started when she came to the emergency department on May 08. She was seen by her primary care provider and was told to go to the emergency department. Patient states that she does not get menstrual cycles and states, " I had a hysterectomy." Patient denies any vaginal discharge that she knows of. States that she had a positive test a few weeks back. Exam: Patient evaluated in the bathroom facing toward the back of the toilet. Patient placed in a wheelchair and brought to triage. The patient stated, "I lost my baby." I have greeted and performed a rapid initial assessment of this patient. A comprehensive ED assessment and evaluation of the patient, analysis of test results and completion of medical decision making process will be conducted by an additional ED providers. TRAVEL OUTSIDE OF THE [place] IN LAST 30 DAYS: No - Related Data Allergies/Adverse Reactions: No Known Allergies Allergy (Verified 01/14/20 18:01) Past Medical History - Past Medical History Cardiac Medical History: Denies: Hx Atrial Fibrillation, Hx Congestive Heart Failure, Hx Coronary Artery Disease, Hx DVT, Hx Heart Attack, Hx Hypercholesterolemia, Hx Hypertension, Hx Peripheral Vascular Disease, Hx Pulmonary Embolism, Hx Heart Murmur Pulmonary Medical History: Denies: Hx Asthma, Hx Bronchitis, Hx COPD, Hx Pneumonia, Hx Intubation, Hx Respiratory Failure, Hx Sleep Apnea, Hx Tuberculosis Neurological Medical History: Denies: Hx Migraine, Hx Seizures Endocrine Medical History: Reports: Hx Hypothyroidism. Denies: Hx Diabetes Mellitus Type 1, Hx Diabetes Mellitus Type 2 Renal/ Medical History: Denies: Hx End Stage Renal Disease, Hx Peritoneal Dialysis Malignancy Medical History: Denies: Hx Bone Cancer, Hx Brain Cancer, Hx Breast Cancer, Hx Cervical Cancer, Hx Colorectal Cancer, Hx Leukemia, Hx Liver Cancer, Hx Lung Cancer, Hx Lymphoma, Hx Ovarian Cancer, Hx Pancreatic Cancer, Hx Renal (Kidney) Cancer, Hx Skin Cancer GI Medical History: Reports: Hx Gastritis, Hx Gastroesophageal Reflux Disease Musculoskeltal Medical History: Reports Hx Arthritis, Reports Hx Musculoskeletal Deformity, Reports Hx Musculoskeletal Trauma Psychiatric Medical History: Reports: Hx Anxiety, Hx Bipolar Disorder, Hx Depression, Hx Schizophrenia Past Surgical History: Reports: Hx Hysterectomy - Immunizations Immunizations up to date: No Hx Diphtheria, Pertussis, Tetanus Vaccination: Yes Doctor's Discharge - Discharge Referrals: KEATON LEE MD [Primary Care Provider] - Follow up as needed
--- NOTE | 2020-05-15 20:33 | ER Document Report ---
ED General - General Chief Complaint: Groin Pain Stated Complaint: POSS ECTOPIC Time Seen by Provider: 05/15/20 19:29 Primary Care Provider: KEATON LEE MD [Primary Care Provider] - Follow up as needed Notes: Patient presents abdominal pain left-sided pain and radiation to the shoulder which was starting yesterday worsening today. Went away yesterday in the end of the day and then got bad this morning. Worse with movement positive nausea vomiting no diarrhea no fever. She is worried she has an ectopic but has had a cyst hysterectomy several years ago. She has been sexually active. While w aiting for a bed in the ED she went to the bathroom passed a bunch of clots" a white sac looking thing that I think was a baby." The toilet automatically flushed with the nurse and the patient were unable to actually look at what happened. TRAVEL OUTSIDE OF THE [place] IN LAST 30 DAYS: No - Related Data Allergies/Adverse Reactions: No Known Allergies Allergy (Verified 01/14/20 18:01) Past Medical History - General Information source: Patient - Social History Smoking Status: Former Smoker Family History: DM, Hyperlipidemia, Hypertension, Malignancy, Thyroid Disfunction Patient has homicidal ideation: No - Past Medical History Cardiac Medical History: Denies: Hx Atrial Fibrillation, Hx Congestive Heart Failure, Hx Coronary Art dexter Disease, Hx DVT, Hx Heart Attack, Hx Hypercholesterolemia, Hx Hypertension, Hx Peripheral Vascular Disease, Hx Pulmonary Embolism, Hx Heart Murmur Pulmonary Medical History: Denies: Hx Asthma, Hx Bronchitis, Hx COPD, Hx Pneumonia, Hx Intubation, Hx Respiratory Failure, Hx Sleep Apnea, Hx Tuberculosis Neurological Medical History: Denies: Hx Migraine, Hx Seizures Endocrine Medical History: Reports: Hx Hypothyroidism. Denies: Hx Diabetes Mellitus Type 1, Hx Diabetes Mellitus Type 2 Renal/ Medical History: Denies: Hx End Stage Renal Disease, Hx Peritoneal Dialysis Malignancy Medical History: Denies: Hx Bone Cancer, Hx Brain Cancer, Hx Breast Cancer, Hx Cervical Cancer, Hx Colorectal Cancer, Hx Leukemia, Hx Liver Cancer, Hx Lung Cancer, Hx Lymphoma, Hx Ovarian Cancer, Hx Pancreatic Cancer, Hx Renal (Kidney) Cancer, Hx Skin Cancer GI Medical History: Reports: Hx Gastritis, Hx Gastroesophageal Reflux Disease Musculoskeletal Medical History: Reports Hx Arthritis, Reports Hx Musculoskeletal Deformity, Reports Hx Musculoskeletal Trauma Psychiatric Medical History: Reports: Hx Anxiety, Hx Bipolar Disorder, Hx Depression, Hx Schizophrenia Past Surgical History: Reports: Hx Hysterectomy - Immunizations Immunizations up to date: No Hx Diphtheria, Pertussis, Tetanus Vaccination: Yes Review of Systems - Review of Systems Notes: REVIEW OF SYSTEMS GEN: Denies fever, chills, weight loss ENT: Denies sore throat, nasal discharge, ear pain EYES: Denies blurry vision, eye pain, discharge CV: Denies chest pain, palpitations, edema RESP: Denies cough, shortness of breath, wheezin left- GI: Left-sided abdominal pain nausea left shoulder pain denies joint pain/swelling, edema, SKIN: Denies rash, skin lesions LYMPH: Denies swollen glands/lymph nodes NEURO: Denies headache, focal weakness or numbness, dizziness PSYCH: Denies depression, suicidal or homicidal ideation PHYSICAL EXAMINATION General: No acute distress, well-nourished Head: Atraumatic, normocephalic ENT: Mouth normal, oropharynx moist, no exudates or tonsillar enlargement Eyes: Conjunctiva normal, pupils equal, lids normal Neck: No JVD, supple, no guarding CVS: Normal rate, regular rhythm, no murmurs Resp: No resp distress, equal and normal breath sounds bilaterally diffuse left- sided dental tenderness upper and lower nondistended, soft, no tenderness to palpation, no rebound or guarding Ext: No deformities, no edema, normal range of motion in upper and lower ext Back: No CVA or midline TTP Skin: No rash, warm Lymphatic: No lymphadeopathy noted Neuro: Awake, alert. Face symmetric. GCS 15. Physical Exam - Vital signs Vitals: Temp Pulse Resp BP Pulse Ox 98.8 F 88 16 124/80 99 05/15/20 19:30 05/15/20 19:30 05/15/20 19:30 05/15/20 19:30 05/15/20 19:30 Course - Vital Signs Vital signs: Temp Pulse Resp BP Pulse Ox 98.8 F 88 16 124/80 99 05/15/20 19:30 05/15/20 19:30 05/15/20 19:30 05/15/20 19:30 05/15/20 19:30 - Laboratory Result Diagrams: 05/15/20 19:49 05/15/20 19:49 Laboratory results interpreted by me: 05/15/20 05/15/20 19:49 19:49 WBC 14.7 H Hgb 11.8 L MCV 73 L MCH 23.8 L RDW 16.8 H Absolute Neuts (auto) 9.8 H Sodium 136.0 L Procedures - Ultrasound/Bedside Ultrasound/Bedside Ultrasound: Other - Normal bladder. Full. No free fluid or visible uterus. Discharge - Discharge Clinical Impression: Left sided abdominal pain Condition: Good Disposition: HOME, SELF-CARE Instructions: Abdominal Pain ([facility]) Additional Instructions: Ultrasound laboratory testing and CAT scan did not find a cause of your pain. Referrals: KEATON LEE MD [Primary Care Provider] - Follow up as needed
--- NOTE | 2020-05-15 21:16 | RADIOLOGY REPORT (SQ) ---
EXAM DESCRIPTION: US PELVIS TRANSVAGINAL COMPLETED DATE/TME: 05/15/2020 20:20 CLINICAL HISTORY: 39 years, Female, vaginal bleeding COMPARISON: Prior CT dated 12/05/2019. TECHNIQUE: Axial 2-D grayscale images of the pelvis were acquired. Doppler was utilized. LIMITATIONS: None. FINDINGS: Uterus is absent. Right ovary measures 2.9 x 2.0 x 2.1 cm in size. It demonstrates normal echogenicity and normal low resistance arterial waveforms/venous flow. The left ovary was not visualized. No significant free fluid is identified within the imaged pelvis. IMPRESSION: No acute sonographic abnormality about the right ovary. Absent uterus. Nonvisualization of the left ovary. copyright 2010 [employer]- All Rights Reserved
[2020-05-15] MEDS ORDERED: FENTANYL CITRATE INJ/PF 100 MCG/2 ML AMPUL IV ONE (21:21)
[2020-05-15] MEDS ORDERED: KETOROLAC TROMETHAMINE INJ/PF 30 MG/1 ML SDV IV ONE (21:21)
[2020-05-15 21:34] LABS: ABSOLUTE BASOPHILS # (AUTO) 0.1 10^3/uL (0.0-0.2); ABSOLUTE EOSINOPHILS # (AUTO) 0.1 10^3/uL (0.0-0.6); ABSOLUTE MONOCYTES (AUTO) 0.7 10^3/uL (0.1-1.4); ABSOLUTE NEUT (AUTO) 9.8 10^3/uL (1.7-8.2); BASOPHILS % (AUTO) 0.7 % (0-2); EOSINOPHILS % (AUTO) 0.7 % (0-6); HEMATOCRIT 36.3 % (36.0-47.0); HEMOGLOBIN 11.8 g/dL (12.0-15.5); MEAN CORPUSCULAR HEMOGLOBIN 23.8 pg (27.0-33.4); MEAN CORPUSCULAR HGB CONC 32.5 g/dL (32.0-36.0); MEAN CORPUSCULAR VOLUME 73 fl (80-97); MONOCYTES % (AUTO) 4.8 % (3-13); PLATELET COUNT 234 10^3/uL (150-450); RED BLOOD COUNT 4.96 10^6/uL (3.72-5.28); RED CELL DISTRIBUTION WIDTH 16.8 % (11.5-14.0); SEGMENTED NEUTROPHILS % (AUTO) 66.8 % (42-78); TOTAL CELLS COUNTED % (AUTO) 100 %; WHITE BLOOD COUNT 14.7 10^3/uL (4.0-10.5)
[2020-05-15 21:48] LABS: BLOOD UREA NITROGEN 13 mg/dL (7-20); CALCIUM 9.4 mg/dL (8.4-10.2); GLUCOSE 88 mg/dL (75-110)
[2020-05-15 22:15] LABS: ANION GAP 8 (5-19); CARBON DIOXIDE 22 mmol/L (22-30); POTASSIUM 4.2 mmol/L (3.6-5.0)
--- NOTE | 2020-05-15 22:16 | RADIOLOGY REPORT (SQ) ---
EXAM DESCRIPTION: CT ABDOMEN PELVIS WITH IV CONTRAST COMPLETED DATE/TME: 05/15/2020 21:21 CLINICAL INDICATION: 39-year-old female with LEFT lower quadrant abdominal pain. COMPARISON: 12/05/2019. EXAMINATION: CT of the abdomen and pelvis was performed following intravenous administration of contrast. Oral contrast was not administered. Multiplanar reformatted images were provided. This exam was performed according to our departmental dose optimization program which includes use of automated exposure control, adjustment of the mA and/or kV according to patient size and/or use of iterative reconstruction technique. FINDINGS: Chest: Evaluation through the lung bases reveals no focal opacity, pleural effusion or pneumothorax. Heart size is within normal limits. No pericardial effusion. Abdomen and pelvis: The liver, gallbladder, pancreas, spleen, bilateral kidneys and bilateral adrenal glands are within normal limits. The vessels are patent and normal in caliber. No abdominopelvic lymph nodes are noted to be pathologically enlarged by CT measurement criteria. The bowel is within normal limits without abnormal bowel wall thickness or bowel dilation. No free air. No free abdominopelvic fluid collections. The appendix is within normal limits. The osseous structures reveal degenerative change of the lower lumbar spine at the L4-5 and L5-S1 levels. Moderate diffuse bulge present at L4-5 and L5-S1. Bilateral severe neuroforaminal narrowing of L5-S1 secondary to posterior osseous spurring and disk bulge. Vacuum disk phenomenon and loss of intervertebral disk height at L4-5 and L5-S1. IMPRESSION: 1. No specific acute intra-abdominal findings are noted to suggest etiology of the patient's abdominal pain. 2. Lumbar spine degenerative changes as detailed above.
[2020-05-15 22:22] LABS: CHLORIDE 106 mmol/L (98-107)
[2020-05-15 22:34] LABS: APPEARANCE,URINE SLIGHTLY-CLOUDY; BILIRUBIN,URINE NEGATIVE (NEGATIVE); COLOR,URINE YELLOW; GLUCOSE, URINE NEGATIVE (NEGATIVE); KETONES,URINE NEGATIVE (NEGATIVE); LEUKOCYTE ESTERASE,URINE NEGATIVE (NEGATIVE); NITRITE,URINE NEGATIVE (NEGATIVE); PROTEIN,URINE NEGATIVE (NEGATIVE); URINE SPECIFIC GRAVITY 1.056; UROBILINOGEN,URINE NEGATIVE mg/dL (<2.0)
[2020-05-15 22:47] LABS: URINE AMPHETAMINES SCREEN NEGATIVE; URINE BARBITURATES SCREEN NEGATIVE; URINE BENZODIAZEPINES SCREEN NEGATIVE; URINE COCAINE SCREEN NEGATIVE; URINE MARIJUANA (THC) SCREEN NEGATIVE; URINE METHADONE SCREEN NEGATIVE; URINE PHENCYCLIDINE SCREEN NEGATIVE
[2020-05-15 22:56] VITALS: BP 137/96
== END 2020-05-15 22:56 | disposition home or self-care (01) ==
LOC: ER 19:21
DX: R11.0 Nausea (principal); M25.512 Pain in left shoulder; Z90.710 Acquired absence of both cervix and uterus
CPT/HCPCS: 99284; 96374; 96375; 86900; 86901; 36415; 84703; 85025; 80048; 81001; 80307; 76830; 93976; 74177; J3490; J3010; J1885